=== PATIENT | male | born 1985 | race Caucasian/White ===

== ENCOUNTER 2020-07-03 15:45 | Emergency (ER) | payer OTHER, SELFPAY ==
--- NOTE | ~2020-07-03 | MR_ITS ---
EXAMINATION: MR ELBOW RIGHT WITHOUT CONTRAST CLINICAL INFORMATION: 34-year-old male with pain and bruising. Concern for biceps tendon tear. COMPARISON: None TECHNIQUE: Noncontrast multiplanar, multisequence MR imaging examination of the right elbow was performed on a high-field 1.5 Iza magnet. FINDINGS: BONES AND CARTILAGE: Bones of the elbow have normal shape, marrow signal and alignment. Articular cartilage is normal. No bone bruise or fracture. No synovial thickening, joint effusion or loose osteochondral body. LIGAMENTS: No evidence of ligament injury. At the lateral elbow, the radial collateral, annular and lateral ulnar collateral ligaments are intact. At the medial elbow, the anterior band of the medial collateral ligament is intact. MUSCLES AND TENDONS: The distal biceps tendon is ruptured and retracted by approximately 4 cm from its radial tuberosity insertion. Fluid and edema surround the torn tendon which, distally, is mildly thickened and mildly heterogeneous from tendinopathy. There is minimal intramuscular edema around the myotendinous junction of the distal biceps. The common flexor and extensor tendons are intact. The pronator teres and brachioradialis muscles are normal. The triceps tendon has a normal attachment to the olecranon. No olecranon bursitis. NEUROVASCULAR: The ulnar nerve has normal size and signal intensity as it courses through the cubital tunnel. No median or radial nerve abnormalities. No soft tissue mass. MR/MR elbow RT wo con IMPRESSION: The biceps tendon is ruptured and retracted from its tuberosity insertion.
[2020-07-03 17:03] VITALS: BP 146/98; PULSE 77; RESP 18; TEMP 37.1; O2SAT 99; BMI 28.3
[2020-07-03 19:31] VITALS: BP 127/79; PULSE 83; RESP 18; TEMP 36.8; O2SAT 96
--- NOTE | 2020-07-03 19:32 | ED.EXTPRO ---
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 He had immediate pain with tingling sensation on the flexor surface of his right arm. He had pain with full extension and rested his arm in a bent position that night. The next day he noticed bruising along the distal upper arm and proximal forearm with persistent pain. He is unable to do any lifting. His pain worsens most with internal rotation of his forearm. No hand weakness. He is able to fully extend and flex his elbow but with discomfort. MD Complaint: extremity pain Onset (ago): day(s) (2) Pain Consistency: constant Location: right and upper extremity Severity scale (1-10): 7 Quality: aching Radiation: none Relieving factors: immobilization and rest Exacerbating factors: range of motion and palpation Related Data Allergies Allergy/AdvReac Type Severity Reaction Status Date / Time No Known Allergies Allergy Verified 07/03/20 17:58 Review of Systems Review of Systems: Constitutional: No Fever, No Chills Cardiovascular: No Chest Pain, No SOB Gastrointestinal: No Nausea, No Vomiting Musculoskeletal: + joint pain, + Myalgias Skin: No Skin Lesions, No rash Neuro: + Weakness, No Numbness, Psych: No Anxiety/Panic, No Depression PMFSH Past Medical History Attestation statement: The following information was validated with the patient. Social History Social History Advance Directives: No Advance Directives Information Provided: No Physical Exam Vital Signs: Vital Signs: Last Vital Signs Temp 98.0 F 07/03/20 20:38 Pulse 79 07/03/20 20:38 Resp 18 07/03/20 20:38 BP 136/83 07/03/20 20:38 Pulse Ox 96 07/03/20 20:38 Body Mass Index 28.3 Appearance: Alert. Oriented X3. No acute distress. HEENT: normal inspection CVS: Normal heart rate and rhythm. Pulses normal. Respiratory: No respiratory distress. Skin: Skin warm and dry. Normal skin color. Normal skin turgor. No rashes. Extremities: right upper extremity with ecchymosis over flexor surface of his distal upper arm and proximal forearm and AC, tenderness along distal biceps tendon, NV intact distally. able to flex and extend elbow, pain on internal rotation of forearm Neuro: Oriented X 3. No motor deficit. No sensory deficit. Course Course Course Narrative: 34 y/o male presenting with clinical presentation concerning for bicep tendon rupture - case was d/w Ortho. Recommending MRI as this is preferably repaired within 3-5 days. Reevaluation(s) Reevaluation #1: MRI showing biceps tendon tear w/ 4cm retraction from tuberosity. Ortho made aware, placed in sling for comfort and instructed to f/u on Monday with Ortho. patient not in significant pain and agrees to take Tylenol ATC for pain. Stable for d/c. Consultations Consultation #1: Donna Perry PA-C Critical Care Time Critical Care Time Critical Care Time: No Discharge Plan Discharge Clinical Impression: Biceps tendon tear Patient Disposition: Home, Self-Care Instructions: Repairs of the Biceps and Triceps Tendons (DC), Tendon Rupture (ED) Additional Instructions: Your MRI showed a biceps tendon repair. This will need surgical repair. Follow up with Orthopedics Monday morning. Wear the sling provided and limit use of your left arm. Referrals: Duncan Fontanez MD [Physician] - 2 days (biceps tendon tear) Stand Alone Forms: Work/School Release
[2020-07-03 20:38] VITALS: BP 136/83; PULSE 79; RESP 18; TEMP 36.7; O2SAT 96
== END 2020-07-03 21:41 | disposition home or self-care (01) ==
PROVIDERS: Emergency Provider Internal Medicine
DX: S46.211A Strain of muscle, fascia and tendon of other parts of biceps, right arm, initial encounter (principal); M79.601 Pain in right arm; X50.0XXA Overexertion from strenuous movement or load, initial encounter; X50.9XXA Other and unspecified overexertion or strenuous movements or postures, initial encounter; Y93.9 Activity, unspecified; Y92.9 Unspecified place or not applicable; Y99.0 Civilian activity done for income or pay
CPT/HCPCS: 73221; 99284

== ENCOUNTER → 2020-07-06 08:48 | Outpatient (BNVA) | payer OTHER, SELFPAY | PROVIDERS: Visit Provider Physician Assistant ==

== ENCOUNTER 2020-07-08 08:25 | Day surgery (SDC) | payer OTHER, SELFPAY ==
[2020-07-08] VITALS (8 sets, daily range): BP systolic 114–143; BP diastolic 61–88; PULSE 63–92; RESP 16–18; TEMP 36.3–37.1; O2SAT 92–97; BMI 29.0
--- NOTE | ~2020-07-08 | FL_ITS ---
EXAMINATION: XR FLUOROSCOPY WITH IMAGES CLINICAL INFORMATION: Distal biceps repair. COMPARISON: Previous right elbow MRI 07/03/2020. TECHNIQUE: Fluoroscopy performed by Dr. Duncan Fontanez. Fluoroscopy time: 16.1 seconds DAP: 15 uGycm2 Images: 2 FINDINGS: Fluoroscopic images demonstrate surgical anchor projecting over the radial tuberosity for biceps tendon repair. FL/FL guidance in OR IMPRESSION: Fluoroscopic guidance for biceps tendon repair.
[2020-07-08] MEDS: Lactated Ringers 1,000 ML 50 ML IV (09:30)
--- NOTE | 2020-07-08 11:35 | MHC.SHP ---
Pre-Procedural Eval Section A The patient is an INPATIENT: No Changes since office visit: Yes Patient answered all questions; No Cold of Flu in the past 2 weeks, No New Medical Problems and No Changes in Medication The History & Physical has been completed within 30 days and I have reviewed it.: Yes Section B Chief Complaint: strain of muscle Allergies: Allergies Allergy/AdvReac Type Severity Reaction Status Date / Time No Known Allergies Allergy Verified 07/08/20 09:38 Plan I have reviewed the history and physical and performed a pertinent physical examination on my patient. No changes have occurred unless specified.
--- NOTE | 2020-07-08 12:16 | HO.ANESPROP2 ---
[facility] Active Problems Active Problems: All Active Problems (Updated 07/08/20 @ 09:37 by Allison Lopez RN) Traumatic rupture of right distal biceps tendon (Acute) Past Medical History Medical History No significant medical problems Surgical History Surgical History No history of previous surgery Social History Social History Smoking Status: Never smoker Second Hand Smoke Exposure: No Use of substances other than those prescribed or required for medical reasons: No Advance Directives: No Advance Directives Information Provided: Yes Advance Directives on File: No Current occupational status: employed Current occupation: Self Employed - Construction Meds Allergies Allergy/AdvReac Type Severity Reaction Status Date / Time No Known Allergies Allergy Verified 07/08/20 09:38 Home Medications Medication Instructions Recorded Confirmed Last Taken Type No Known Home Meds 07/06/20 07/06/20 Unknown History Exam Exam Date and Time: July 08, 2020 1216 Height,Weight and Vital Signs: Height 6 ft 1 in Weight 99.79 kg Last Vital Signs Temp 98.8 F 07/08/20 09:04 Pulse 74 07/08/20 09:04 Resp 16 07/08/20 09:04 BP 143/88 H 07/08/20 09:04 Pulse Ox 96 07/08/20 09:04 Airway Mallampati Class: I TM Dist: >3cm Neck ROM: Full Loose/Missing/Broken Teeth: No Heart: RRR Lungs: NL Assessment and Plan Assessment Anesthesia Assessment: Anesthesia Plan Discussed and Chart Reviewed Final Anesthetic Review NPO: Yes ASA Class: I Final Preanesthetic Review: No Changes in Pt Med Stat, Meds/Allgs Chart Reviewed, Consent Obtained/Reviewed and Anes Risks/Benef Reviewed Patient Risk: Low Procedure Risk: Low Anesthetic Plan Anesthetic Plan: GA Disposition: Standard PACU
--- NOTE | 2020-07-08 13:22 | PM.OP ---
Brief Operative Note Date of Service: 07/08/20 Pre-op diagnosis: right distal biceps rupture Post-op diagnosis: same Procedure: right distal biceps repair Implants: arthrex suture button with interference screw Surgeon: Duncan Fontanez MD Anesthesia: GETA and local Board Saw Runner: Vicky Sebastian Estimated blood loss (mL): 5 Tourniquet time (min): 62 IV fluids (mL): 900 Pathology: none sent Condition: stable Disposition: PACU
[2020-07-08] MEDS: ondansetron HCL 4 MG/2 ML VIAL IVPUSH (14:21)
[2020-07-08] MEDS: Acetaminophen 325 MG TABLET 975 MG PO (15:08)
[2020-07-08] MEDS: oxyCODONE HCl Immed Release 5 MG TABLET PO (15:11)
--- NOTE | 2020-07-08 16:43 | PC.NURSE ---
patient able stand and ambulate to wheelchair no complaints of dizziness, dressing right arm c/d/i. +cms. pain tolerable iv removed and dc to home.
--- NOTE | 2020-07-15 12:48 | W.PM.OPN ---
Operative Note Operative Note Date of Service: 07/08/20 Narrative: Date of Service: 07/08/20 Pre-op diagnosis: right distal biceps rupture Post-op diagnosis: same Procedure: right distal biceps repair Implants: arthrex suture button with interference screw Surgeon: Duncan Fontanez MD Anesthesia: GETA and local Pattern Clerk: Vicky Sebastian Estimated blood loss (mL): 5 Tourniquet time (min): 62 IV fluids (mL): 900 Pathology: none sent Condition: stable Disposition: PACU Procedure in dtail: Patient was brought to the operating room and placed supine on the surgical table. He was prepped and draped in standard sterile fashion and a time out was called to identify proper site, proper procedure and IV antibiotics per weight were administered. I began by making a transverse incision over the level of the biceps insertion. Longitudinal dissection was taken down and I was quickly able to find the torn biceps tendon just p[roxoimal to the incision.. I took care to avoid the antecubital fossa veins and bluntly dissected down to the insertion site. This was identified maually and then confirmed with fluoroscopy. I trimmed the biceps tendon and whip stitched it and then drilled a bicortical beef pin at the insertion site and a unicortical 8.5 Reamer was then utilized. I then passed my suture button through both cortices and tightened the biceps tendon until it was intraosseous. I then placed a 8 0 interference screw unicortically reapproximating both the insertion site and that tension. He had full range of motion and I was satiosfied with the repair. The FiberWire was tied over the button and the elbow was taken through range of motion. Again he had full pronation supination and flexion and extension. Fluoroscopic images were used to confirm the button was in the appropriate position. Once I was satisfied with this the tourniquet was let down. There was no brisk bleeding. Layered closure with Prolene on the skin was done and patient was placed in a sterile dressing and a sling extubated brought recovery room stable condition there were no known complications.
== END 2020-07-08 16:44 | disposition home or self-care (01) ==
PROVIDERS: Visit Provider Orthopaedic Surgery
PROC: (CPT 24341; principal; 2020-07-08 10:20)
DX: S46.211A Strain of muscle, fascia and tendon of other parts of biceps, right arm, initial encounter (principal); X50.0XXA Overexertion from strenuous movement or load, initial encounter; Y93.89 Activity, other specified; Y92.9 Unspecified place or not applicable; Y99.9 Unspecified external cause status
CPT/HCPCS: 24342; C1713; J0690; J1170; J2250; J2405; J2550

== ENCOUNTER → 2020-07-17 11:07 | Outpatient (BNVA) | payer OTHER, SELFPAY | PROVIDERS: Visit Provider Physician Assistant ==

== ENCOUNTER → 2020-08-14 10:28 | Outpatient (BNVA) | payer OTHER, SELFPAY | PROVIDERS: Visit Provider Physician Assistant ==

== ENCOUNTER 2020-09-04 09:40 | Outpatient (REF) | payer OTHER, SELFPAY ==
[2020-09-04 10:39] LABS: Hematocrit 47.6 % (42-52); Hemoglobin 15.7 g/dl (14.0-18.0); Mean Corpuscular Volume 81.9 fL (80-98); Mean Platelet Volume 9.8 fL (9.4-12.4); Platelet Count 284 X10*3/uL (160-400); Red Blood Count 5.81 X10*6/uL (4.60-5.80); Red Cell Distribution Width 12.7 % (11.0-16.0); White Blood Count 6.4 X10*3/uL (4.8-10.8)
[2020-09-04 10:45] LABS: Glucose Urine UA NEG (NEG); Leukocyte Esterase Urine NEG (NEG); Nitrite Urine NEG (NEG); Specific Gravity - Urine >= 1.030 (1.005-1.025); Urine Blood TRACE (NEG); Urine Ketones NEG (NEG); Urine Protein NEG (NEG-TRACE)
[2020-09-04 10:49] LABS: Appearance Urine CLEAR; Color Urine YELLOW
[2020-09-04 11:27] LABS: Alkaline Phosphatase 84 U/L (39-117)
[2020-09-04 11:30] LABS: Alanine Aminotransferase 56 U/L (0-40); Albumin Level 4.6 g/dL (3.5-5.0); Anion Gap 11 (12-20); Aspartate Amino Transferase 29 U/L (5-37); Bilirubin Direct 0.2 mg/dL (0.0-0.5); Bilirubin Total 0.6 mg/dL (0.0-1.0); Blood Urea Nitrogen 15 mg/dL (9-16); Calcium 9.8 mg/dL (8.4-10.2); Carbon Dioxide 28 mmol/L (22-29); Chloride 106 mmol/L (96-108); Cholesterol 221 mg/dL; Estimated Glomerular Filt Rate > 60; Glucose Random 103 mg/dL (60-115); HDL Cholesterol 39 mg/dL; LDL Cholesterol Calculated 152 mg/dl; Potassium 4.7 mmol/L (3.3-5.1); Sodium 140 mmol/L (135-145); Total Protein 7.5 g/dL (6.5-8.0); Triglycerides 152 mg/dL
[2020-09-04 11:49] LABS: Mucus Urine 1+ /LPF; RBC Urine 0-2 /HPF (0); Squamous Epithelial Cell Urine TRACE /LPF; WBC Urine 0-2 /HPF (0-4)
== END 2020-09-04 09:41 | disposition home or self-care (01) ==
LOC: HO.WFDLDS 09:40
PROVIDERS: Visit Provider Internal Medicine
DX: E78.01 Familial hypercholesterolemia (principal)
CPT/HCPCS: 36415; 80048; 80061; 80076; 81001; 85027

== ENCOUNTER 2020-11-07 12:26 | Emergency (ER) | payer OTHER, SELFPAY ==
[2020-11-07 12:43] VITALS: BP 140/91; PULSE 74; TEMP 36.7; O2SAT 98
[2020-11-07 12:49] VITALS: BP 140/91; PULSE 74; RESP 18; TEMP 36.7; O2SAT 96; BMI 28.3
--- NOTE | 2020-11-07 13:15 | ED.ALLEREA ---
HPI - Allergic Reaction General Chief complaint: Allergic Reaction Stated complaint: stung by wasp, facial swelling Time Seen by Provider: 11/07/20 13:00 Source: patient Mode of arrival: ambulatory Limitations: no limitations History of Present Illness HPI narrative: 35-year-old male presents for left facial swelling after being stung by a wasp yesterday t 2 pm. Patient's facial swelling started at 8:00 p.m. last night, he used ice and antihistamine, and it felt better. He went to sleep and this morning when he woke up the swelling was much worse. It was mildly painful yesterd\ay, no pain now, no itching. Patient does not feel short of breath, no fevers, no throat swelling, no lip swelling, no tongue swelling. He can swallow fine. His voice is normal, no hoarseness. No abdominal pain, no nausea or vomiting. Patient is often stung by bees because he does bee keeping for hobby. This time there was a wasps Nest underground that he disturbed and a wasp stung him. MD complaint: allergic reaction Onset (ago): day(s) (1) Exposure: insect bite Symptoms: facial swelling Severity: moderate Treatment prior to arrival: benadryl Previous Allergic Reaction History: other (local rections) Related Data Previous Rx's Medication Instructions Recorded diphenhydramine HCl 25 mg capsule 25 mg PO TID PRN 5 Days #15 cap 11/07/20 (Benadryl) famotidine 20 mg tablet (Acid 20 mg PO DAILY 14 Days #14 tab 11/07/20 [employer] Hand (famotidine)) prednisone 20 mg tablet 60 mg PO DAILY 5 Days #15 tab 11/07/20 Allergies Allergy/AdvReac Type Severity Reaction Status Date / Time No Known Allergies Allergy Verified 11/07/20 12:49 Review of Systems Constitutional: Constitutional: Denies fever(s) and Denies headache(s) Eyes: Eyes: Denies blurry vision, Denies change in vision and Denies loss of vision ENT: Denies dizziness, Denies facial pain, Denies headache(s), Denies hoarseness, Denies lip swelling, Denies throat swelling and Denies tongue swelling Cardiovascular: Cardiovascular: Denies chest pain, Denies syncope, Denies dyspnea and Denies dyspnea on exertion Respiratory: Respiratory: Denies cough, Denies dyspnea, Denies dyspnea on exertion, Denies stridor and Denies wheezing Gastrointestinal: Gastrointestinal: Denies abdominal pain, Denies nausea and Denies vomiting Musculoskeletal: Musculoskeletal: Denies numbness and Denies tingling Integumentary/Breasts: Skin/Breast: Reports skin swelling Comments: Facial swelling around left eye and left cheek Neurologic: Denies burning sensations, Denies dizziness, Denies syncope, Denies headache(s), Denies loss of vision, Denies numbness and Denies tingling Psychiatric: Psychiatric: Denies anxiety Allergic/Immunologic: Allergic/Immunologic: Denies lip swelling, Denies throat swelling, Denies tongue swelling and Denies wheezing PMFSH Past Medical History Medical History Encounter for general adult medical examination with abnormal findings Familial hypercholesterolemia No significant medical problems Surgical History No history of previous surgery Social History Social History Housing: House Patient Tobacco Use Status: Never used Tobacco Second Hand Smoke Exposure: No Advance Directives: Yes Advance Directives Information Provided: Yes Advance Directives on File: No Current occupational status: employed Current occupation: Self Employed - Construction Physical Exam Vital Signs: Vital Signs: Last Vital Signs Temp 98.1 F 11/07/20 12:49 Pulse 74 11/07/20 12:49 Resp 18 11/07/20 12:49 BP 140/91 H 11/07/20 12:49 Pulse Ox 96 11/07/20 12:49 Body Mass Index 28.3 Const: General: healthy appearing, no acute distress, alert and awake Nutritional Appearance: well nourished Orientation/consciousness: patient oriented x3 Limitations: no limitations HENMT: Other: Left facial swelling around left eye and left cheek Patent airway, no throat swelling, no lip swelling, no tongue swelling Ears: hearing grossly normal bilaterally General nose exam: Normal external nose present Face and sinus: No erythema, Yes edema and No Facial tenderness on exam of face and sinuses Mouth: Normal oral and palatal mucosa present, tongue normal, oropharynx normal and no muffled voice Throat: Yes posterior oropharynx normal Eyes: Other: Left eye swollen shut from facial swelling. Able to open left eye, eye is PERRLA, patient has no visual changes Pupils: Equal, round and reactive pupils present Direct Ophthalmoscopy: normal light reflex Resp: Effort & Inspection: normal respiratory effort and able to speak in complete sentences Auscultation: clear to auscultation bilaterally, no crackles, no rales, no rhonchi, no wheezes and lung sounds not diminished Cardio: Rate: regular rate Rhythm: regular rhythm Heart sounds: S1 normal heart sound present and S2 normal heart sound present GI: Inspection: Yes normal to inspection Palpation (GI): Soft to palpation, nontender, no guarding and not rigid Skin: Other: With swollen skin around left eye and left face, mildly edematous and erythematous Neuro: General: patient oriented x3, gait normal, tone normal, moves all extremities and no focal motor deficits Cranial nerves: Yes Equal, round and reactive pupils present Extrem: General: Yes normal to inspection and Yes full ROM Course Course Course Narrative: 35-year-old male with a local reaction to wasp sting under his left eye. Patient has a swollen left face, edematous around eye and left cheek. Patient has a patent airway, no tongue, no throat, no lip swelling. He can swallow, his lungs are clear to auscultation bilaterally. Dr Vazquez did see this patient, and agreed patient can be treated with prednisone, Pepcid, and Benadryl. Gave 60 mg prednisone and 20 mg Pepcid here today. Patient is driving home, so I advised patient to take Benadryl once he arrives home. Patient counseled to return if worsening symptoms, if any shortness of breath, wheezing, throat swelling, tongue swelling, lip swelling. Prescribed prednisone, Pepcid, advised ice to face, and Benadryl OTC. Discharge Plan Discharge Clinical Impression: Allergic reaction Qualifiers: Encounter type: initial encounter Qualified Code(s): T78.40XA - Allergy, unspecified, initial encounter Patient Disposition: Home, Self-Care Instructions: General Allergic Reaction (ED) Additional Instructions: Could please fill your prescription for prednisone and Pepcid. We have had these doses of these today, please fill your prescriptions he can take them both tomorrow. As we discussed. Please take your prednisone in the morning. If your insurance will not pay for the Benadryl I prescribed, Please buy [id number] Benadryl, you can take 25 mg three times a day. I would like you to do this for the next 5 days. Please return to emergency room if you have any lip swelling, throat swelling, trouble breathing, tongue swelling, or any other new or concerning symptoms. Prescriptions: New prednisone 20 mg tablet 60 mg PO DAILY 5 Days Qty: 15 RF: 0 famotidine [Acid [employer] Hand (famotidine)] 20 mg tablet 20 mg PO DAILY 14 Days Qty: 14 RF: 0 diphenhydramine HCl [Benadryl] 25 mg capsule 25 mg PO TID PRN (Reason: allergic reaction) 5 Days Qty: 15 RF: 0
[2020-11-07] MEDS: Famotidine 20 MG TABLET PO (13:34)
[2020-11-07] MEDS: predniSONE 20 MG TABLET 60 MG PO (13:34)
== END 2020-11-07 13:41 | disposition home or self-care (01) ==
PROVIDERS: Emergency Provider Emergency Medicine; PCP Family Medicine
DX: T63.441A Toxic effect of venom of bees, accidental (unintentional), initial encounter (principal); R22.0 Localized swelling, mass and lump, head; Y92.017 Garden or yard in single-family (private) house as the place of occurrence of the external cause
CPT/HCPCS: 99283

== ENCOUNTER 2021-01-22 15:42 | Outpatient (REF) | payer OTHER, SELFPAY ==
[2021-01-22 17:33] LABS: Syphilis Screen Nonreactive (Nonreactive)
[2021-01-25 08:22] LABS: HBsAGNum1 0.18 S/CO (0.00-0.99); HIV AB/AG Nonreactive (Nonreactive); HIV Num 1 0.06 S/CO (0.00-0.99); Hepatitis B Surface Antigen Negative (Negative); ~HepC Num1 0.05 S/CO (0.00-0.79); ~Hepatitis C Antibody Nonreactive (Nonreactive)
== END 2021-01-22 15:43 | disposition home or self-care (01) ==
LOC: HO.LAB 15:42
PROVIDERS: Visit Provider Obstetrics & Gynecology Reproductive Endocrinology
DX: Z31.49 Encounter for other procreative investigation and testing (principal); Z11.9 Encounter for screening for infectious and parasitic diseases, unspecified
CPT/HCPCS: 36415; 86780; 86803; 87340; 87389

== ENCOUNTER 2021-09-09 14:13 | Outpatient (REF) | payer OTHER, SELFPAY ==
[2021-09-09 14:58] LABS: MANUAL DIFF FLAG NO
[2021-09-09 15:13] LABS: Basophils Absolute Auto 0.1 X10*3/uL (0.0-0.2); Basophils Percent Auto 0.8 % (0-2); Eosinophils Absolute Auto 0.2 X10*3/uL (0.0-0.4); Eosinophils Percent Auto 3.2 % (0-4); Hematocrit 45.7 % (42.0-52.0); Hemoglobin 15.3 g/dl (14.0-18.0); Imm Gran Abs Auto 0.02 X10*3/uL (0.00-0.03); Imm Gran Pct Auto 0.3 % (0.0-0.4); Lymphocytes Absolute Auto 2.4 X10*3/uL (1.2-4.9); Mean Corpuscular HGB Conc 33.5 g/dl (31.0-36.0); Mean Corpuscular Hemoglobin 26.8 pg (27.0-33.0); Mean Platelet Volume 9.6 fL (9.4-12.4); Monocytes Absolute Auto 0.7 X10*3/uL (0.1-1.2); Monocytes Percent Auto 10.8 % (2-11); Neutrophils Absolute Auto 2.9 x10*3/uL (2.0-8.3); Neutrophils Percent Auto 46.9 % (45-73); Platelet Count 249 X10*3/uL (160-400); Red Blood Count 5.71 X10*6/uL (4.60-5.80); White Blood Count 6.3 X10*3/uL (4.8-10.8)
[2021-09-09 15:38] LABS: Iron 57 mcg/dL (45-160); Percent Iron Saturation 15 % (15-50); Total Iron Binding Capacity 383 mcg/dL (228-428); Unsaturated Iron Binding 326 ug/dL
[2021-09-09 15:58] LABS: Free T4 (Free Thyroxine) 1.26 ng/dL (0.71-1.85); Thyroid Stimulating Hormone 1.07 uIU/mL (0.32-4.0)
[2021-09-10 17:32] LABS: Triiodothyronine T3 Free 4.1 pg/mL (2.3-4.2)
[2021-09-10 17:46] LABS: DHEA Sulfate 268 mcg/dL (93-415)
[2021-09-14 10:22] LABS: Anti Nuclear Antibody Screen NEGATIVE (NEGATIVE)
[2021-09-15 18:17] LABS: Methylmalonic Acid 188 nmol/L (87-318)
[2021-09-16 00:07] LABS: MTHFR Mutation Detection POSITIVE; Pregnenolone, LC/MS 88 ng/dL (22-237)
[2021-09-22 09:51] LABS: Homocysteine 13.4
== END 2021-09-09 14:14 | disposition home or self-care (01) ==
LOC: HO.LAB 14:13
PROVIDERS: PCP Family Medicine; Visit Provider Naturopath
DX: Z00.00 Encounter for general adult medical examination without abnormal findings (principal); B37.9 Candidiasis, unspecified; E53.9 Vitamin B deficiency, unspecified; K59.00 Constipation, unspecified; R03.0 Elevated blood-pressure reading, without diagnosis of hypertension; R06.83 Snoring; R19.7 Diarrhea, unspecified; R41.9 Unspecified symptoms and signs involving cognitive functions and awareness; R53.83 Other fatigue; R89.9 Unspecified abnormal finding in specimens from other organs, systems and tissues
CPT/HCPCS: 82627; 83090; 83540; 83735; 83921; 84143; 84439; 84443; 84481; 84630; 85025; 86038; 86039; 86141; 86332; 86628

== ENCOUNTER 2021-09-10 06:42 | Outpatient (REF) | payer OTHER, SELFPAY ==
[2021-09-10 08:14] LABS: Alanine Aminotransferase 35 U/L (0-40); Albumin Level 4.8 g/dL (3.5-5.0); Alkaline Phosphatase 75 U/L (39-117); Anion Gap 11 (12-20); Aspartate Amino Transferase 30 U/L (5-37); Bilirubin Total 0.9 mg/dL (0.0-1.0); Blood Urea Nitrogen 18 mg/dL (9-16); Calcium 9.7 mg/dL (8.4-10.2); Carbon Dioxide 26 mmol/L (22-29); Chloride 104 mmol/L (96-108); Cholesterol 229 mg/dL; Estimated Glomerular Filt Rate > 60; Gamma Glutamyl Transpeptidase 34 U/L (11-51); Glucose Random 107 mg/dL (60-115); HDL Cholesterol 40 mg/dL; LDL Cholesterol Calculated 177 mg/dl; Lactate Dehydrogenase 164 U/L (118-273); Potassium 4.3 mmol/L (3.3-5.1); Sodium 137 mmol/L (135-145); Total Protein 7.9 g/dL (6.5-8.0); Triglycerides 60 mg/dL; Uric Acid 7.2 mg/dL (3.4-7.0)
[2021-09-10 08:34] LABS: Insulin 7 uU/mL (2-29); Vitamin D 25-OH Total 34.2 ng/mL (>30)
[2021-09-10 08:54] LABS: Folate 19.6 ng/mL (> or = 4.0); Vitamin B12 255 pg/mL (200-900)
[2021-09-10 10:02] LABS: Cortisol Random 12.9 ug/dL
[2021-09-11 21:22] LABS: Sex Hormone Binding Globulin 28 nmol/L (10-50)
[2021-09-16 13:06] LABS: Testosterone, Total 255 ng/dL (250-1100)
[2021-09-16 19:42] LABS: Vitamin A 45 mcg/dL (38-98)
[2021-09-16 21:36] LABS: Dihydrotestosterone 20 ng/dL (12-65)
== END 2021-09-10 06:43 | disposition home or self-care (01) ==
LOC: HO.LAB 06:42
PROVIDERS: PCP Family Medicine; Visit Provider Naturopath
DX: B37.9 Candidiasis, unspecified (principal); E50.9 Vitamin A deficiency, unspecified; E53.9 Vitamin B deficiency, unspecified; E63.9 Nutritional deficiency, unspecified; E72.11 Homocystinuria; E78.5 Hyperlipidemia, unspecified; E72.12 Methylenetetrahydrofolate reductase deficiency; K59.00 Constipation, unspecified; R03.0 Elevated blood-pressure reading, without diagnosis of hypertension; R06.83 Snoring; R19.7 Diarrhea, unspecified; R41.9 Unspecified symptoms and signs involving cognitive functions and awareness
CPT/HCPCS: 80053; 80061; 82306; 82533; 82542; 82607; 82642; 82671; 82746; 82977; 83525; 83615; 84144; 84207; 84252; 84270; 84402; 84403; 84550; 84590

== ENCOUNTER 2021-10-08 15:56 | Outpatient (REF) | payer OTHER, SELFPAY ==
[2021-10-08 17:56] LABS: Ferritin 78 ng/mL (20-250)
[2021-10-10 05:16] LABS: Follicle Stimulating Hormone 3.8 mIU/mL (1.6-8.0); Lutenizing Hormone 3.4 mIU/mL (1.5-9.3)
[2021-10-11 21:45] LABS: Thyroglobulin Antibodies <1 IU/mL (< or = 1); Thyroid Peroxidase Antibodies 2 IU/mL (<9)
[2021-10-13 16:27] LABS: Thyroid Stimulating Immunoglob <89 % baseline (<140)
[2021-10-15 23:26] LABS: Saliva Cortisol 0.18 mcg/dL
[2021-10-15 23:26] LABS: Saliva Cortisol 0.25 mcg/dL
[2021-10-15 23:26] LABS: Saliva Cortisol <0.03 mcg/dL
== END 2021-10-08 15:57 | disposition home or self-care (01) ==
LOC: HO.LAB 15:56
PROVIDERS: PCP Family Medicine; Visit Provider Naturopath
DX: E72.11 Homocystinuria (principal); E78.2 Mixed hyperlipidemia; R53.83 Other fatigue; R89.9 Unspecified abnormal finding in specimens from other organs, systems and tissues; R94.6 Abnormal results of thyroid function studies
CPT/HCPCS: 82530; 82728; 83001; 83002; 84445; 86376; 86618; 86666; 86753; 86800

== ENCOUNTER 2022-03-31 11:37 | Outpatient (REF) | payer OTHER, SELFPAY ==
[2022-03-31 13:35] LABS: Cholesterol 241 mg/dL; HDL Cholesterol 40 mg/dL; LDL Cholesterol Calculated 186 mg/dl; Triglycerides 75 mg/dL
[2022-03-31 14:59] LABS: Reflex LDLD? No
[2022-04-01 07:49] LABS: Sex Hormone Binding Globulin 27 nmol/L (10-50)
[2022-04-01 14:29] LABS: CRP High Sensitivity 1.7 mg/L
[2022-04-04 15:19] LABS: Vitamin D 25-OH, D2 <4 ng/mL; Vitamin D 25-OH, D3 57 ng/mL; Vitamin D 25-OH, Total 57 ng/mL (30-100)
[2022-04-04 17:53] LABS: Homocysteine 7.7 umol/L (<11.4)
[2022-04-06 13:14] LABS: Testosterone, Free 67.1 pg/mL (35.0-155.0); Testosterone, Total 430 ng/dL (250-1100)
[2022-04-11 08:09] LABS: Other Ref Test - Misc SEE COMMENTS
== END 2022-03-31 11:38 | disposition home or self-care (01) ==
LOC: HO.LAB 11:37
PROVIDERS: PCP Family Medicine; Visit Provider Naturopath
DX: B37.82 Candidal enteritis (principal); R89.9 Unspecified abnormal finding in specimens from other organs, systems and tissues; R86.1 Abnormal level of hormones in specimens from male genital organs; E55.9 Vitamin D deficiency, unspecified; R79.82 Elevated C-reactive protein (CRP)
CPT/HCPCS: 36415; 80061; 82306; 83090; 84270; 84402; 84403; 86141

== ENCOUNTER 2023-06-22 13:56 | Outpatient (REF) | payer OTHER, SELFPAY ==
[2023-06-23 21:05] LABS: Immunoglobulin A 389 mg/dL (47-310); Transglutaminase IgA <1.0 U/mL
== END 2023-06-22 13:57 | disposition home or self-care (01) ==
LOC: HO.LAB 13:56
PROVIDERS: PCP Family Medicine; Visit Provider Naturopath
DX: R53.83 Other fatigue (principal); K21.9 Gastro-esophageal reflux disease without esophagitis; R14.0 Abdominal distension (gaseous); R19.7 Diarrhea, unspecified; T78.1XXS Other adverse food reactions, not elsewhere classified, sequela; K90.89 Other intestinal malabsorption; B37.82 Candidal enteritis
CPT/HCPCS: 36415; 82784; 86003; 86332; 86364; 86628

== ENCOUNTER 2023-11-01 07:52 | Outpatient (AMB) | payer OTHER, SELFPAY ==
[2023-11-01 08:01] VITALS: BP 148/80; PULSE 81; O2SAT 98
--- NOTE | 2023-11-01 08:01 | A.OFFPC_ITS ---
Vital Signs 11/01/23 08:01 Height 5 ft 11 in Weight 215 lb BMI 30.0 BP 148/80 H Blood Pressure Location Lt brachial Position Sitting Pulse 81 Pulse Source Pulse Oximeter Pulse Oximetry (%) 98 Oxygen Delivery Method Room Air Intake Visit Reasons: PE Allergies No Known Allergies Allergy (Verified 11/01/23 08:01) Tobacco use date assessed: 11/01/23 Dental Screening Dental Screen Date: 11/01/23 Did you have a dental visit in the last 12 months?: Yes Did you have a dental problem in the last 6 months where you did not have access to dental care?: No Was dental information given to patient?: Patient has dentist HPI PE HPI Details 38-year-old male presents to the office requesting an annual physical. In addition, patient is complaining of getting frequently sick. He has recently moved to a new house and symptoms seems to have been worse after. Complains of headaches, frequent respiratory illness and feeling lightheaded. His nose is blocked every night and has history of snoring. He believes he may have a deviated nasal septum. Patient is also reporting that on occasions he gets sharp pain in his right leg, once in 6 months. Patient works as a construction consultant. Denies history of smoking. Lives with his and kids. [facility] Medical History (Updated 11/01/23 @ 08:58 by Juan Longo MD) Allergic rhinitis Familial hypercholesterolemia Encounter for general adult medical examination with abnormal findings No significant medical problems Surgical History No history of previous surgery Family History Mother POTS (postural orthostatic tachycardia syndrome) Father No problems noted. Brother No problems noted. Brother No problems noted. Brother No problems noted. Daughter No problems noted. Social History Housing: House Patient Tobacco Use Status: Never used Tobacco Tobacco use type: Cigarette e-Cigarette/Vaping Use: Never Used Second Hand Smoke Exposure: No service: No Current occupational status: employed Current occupation: Self Employed - Construction Current occupational exposures/hazards: No Cognitive needs: No Hearing needs: No Vision needs: No Questionnaire PHQ-9 Over the last 2 weeks, how often have you been bothered by any of the following problems? 1. Little interest or pleasure in doing things: not at all 2. Feeling down, depressed, or hopeless: not at all 3. Trouble falling or staying asleep, or sleeping too much: not at all 4. Feeling tired or having little energy: not at all 5. Poor appetite or overeating: not at all 6. Feeling bad about yourself - or that you are a failure or have let yourself or your family down: not at all 7. Trouble concentrating on things, such as reading the newspaper or watching television: not at all 8. Moving or speaking so slowly that other people could have noticed. Or the opposite - being so fidgety or restless that you have been moving around a lot more than usual: not at all 9. Thoughts that you would be better off or of hurting yourself in some way: not at all Total score: 0 Depression Screening Interpretation: Negative Depression Screening Done: Yes Source: Developed by Drs. Tevin Ramirez, Katlyn Tucker, Moises Martin and colleagues, with an educational venice from [employer]. Thrive Questionnaire Date Thrive assessed: 11/01/23 I am a: Patient What is your living situation today?: I have a steady place to live Within the past 12 months, did the food you bought not last and you didn't have the money to get more?: Never true Within the past 12 months, did you worry whether your food would run out before you got money to buy more?: Never true Do you have trouble paying for medicines?: No Do you have trouble getting transportation to medical appointments?: No Do you have trouble paying your heating and electricity bill?: No Do you have trouble taking care of your child, family member or friend?: No Do you have trouble with day-to-day activities such as bathing, preparing meals, shopping, managing finances, etc.?: No Are you currently unemployed and looking for a job?: No Are you interested in more education?: No Currently or been in a relationship where the following occur: No concerns reported THRIVE Score: 0 AUDIT C Alcohol Use Questionnaire (AUDIT-C) 1. How often do you have a drink containing alcohol?: Monthly or less 2. How many drinks containing alcohol do you have on a typical day when you are drinking?: 1 or 2 3. How often do you have six or more drinks on one occasion?: Never Total Score: 1 Score Reviewed/Action Taken: Yes MARGY-7 AMB Questionnaire MARGY-7 Date MARGY - 7 assessed: 11/01/23 Feeling nervous, anxious, or on edge: 0 = Not at all Not being able to stop or control worryin = Not at all Worrying too much about different things: 0 = Not at all Trouble relaxin = Not at all Being so restless that it is hard to sit still: 0 = Not at all Becoming easily annoyed or irritable: 0 = Not at all Feeling afraid as if something awful might happen: 0 = Not at all Total MARGY-7 score (0-4 normal; 5-9 mild; 10-14 moderate; 15-21 severe): 0 Source: Developed by Drs. Tevin Ramirez, Katlyn Tucker, Moises Martin and colleagues, with an educational venice from [employer]. Physical exam (Primary Care) Vital Signs: Last Vital Signs Pulse 81 11/01/23 08:01 BP 148/80 H 11/01/23 08:01 Pulse Ox 98 11/01/23 08:01 Oxygen Delivery Method Room Air 11/01/23 08:01 Care Plan Goal for BP management: Blood pressure to be monitored. BMI result Body Mass Index 30.0 Tobacco/Smoking Status: Tobacco use Status Tobacco use date assessed 11/01/23 11/01/23 08:08 Patient Tobacco Use Status Never used Tobacco 11/01/23 08:08 Tobacco use type Cigarette 11/01/23 08:08 e-Cigarette/Vaping Use Never Used 11/01/23 08:08 PHQ-9: PHQ-9 Score PHQ-9: Total score 0 11/01/23 08:08 Depression Screening Interpretation: Negative Thrive Assessment: Date of Thrive Assessment Date Thrive assessed 11/01/23 11/01/23 08:08 Currently or been in a relationship where the following occur: No concerns reported Const General: cooperative and healthy appearing Nutritional Appearance: well nourished Orientation/consciousness: patient oriented x3 Limitations: no limitations HENMT Other: Nose: Nasal septum is deviated. Head: Yes normal to inspection Eyes General: appearance normal, both eyes and all related structures Neck Neck: Yes normal visual inspection Chest Chest palpation & inspection: normal palpation of entire chest wall Resp Effort & Inspection: normal respiratory effort Neuro General: patient oriented x3 Assessment and Plan Assessment & Plan (1) Encounter for general adult medical examination with abnormal findings: Code(s): Z00.01 - Encounter for general adult medical examination with abnormal findings Plan: Blood work has been ordered. Will call with the results. (2) Allergic rhinitis: Code(s): J30.9 - Allergic rhinitis, unspecified Plan: His symptoms are arising from a combination of deviated septum and exacerbation of allergies. Singulair, Flonase, cetirizine, albuterol has been prescribed. In ENT appointment has been requested. Patient has a follow-up appointment in 4 weeks. Coding Level of Care Code Est Pt Level 3 (34439) Est Pt Prev Care 18-39y(88211) Diagnoses Encounter for general adult medical examination with abnormal findings Z00.01 Allergic rhinitis J30.9
== END 2023-11-01 08:39 | disposition home or self-care (01) ==
PROVIDERS: PCP Internal Medicine; Visit Provider Internal Medicine
DX: Z00.01 Encounter for general adult medical examination with abnormal findings (principal); J30.9 Allergic rhinitis, unspecified
CPT/HCPCS: 99213; 99395

== ENCOUNTER 2023-11-01 08:55 | Outpatient (REF) | payer OTHER, SELFPAY ==
[2023-11-01 10:17] LABS: Appearance Urine Clear; Color Urine Yellow; Glucose Urine UA Negative (Negative); Leukocyte Esterase Urine Negative (Negative); Nitrite Urine Negative (Negative); PH 5.5 (5.0-9.0); Urine Blood Negative (Negative); Urine Ketones Negative (Negative); Urine Protein Negative (Neg-Trace)
[2023-11-01 11:19] LABS: Hematocrit 45.7 % (42.0-52.0); Hemoglobin 15.3 g/dl (14.0-18.0); Mean Corpuscular HGB Conc 33.5 g/dl (31.0-36.0); Mean Corpuscular Hemoglobin 27.1 pg (27.0-33.0); Mean Corpuscular Volume 80.9 fL (80.0-98.0); Platelet Count 279 X10*3/uL (160-400); Red Blood Count 5.65 X10*6/uL (4.60-5.80); Red Cell Distribution Width 12.5 % (11.0-16.0); White Blood Count 4.4 X10*3/uL (4.8-10.8)
[2023-11-01 12:37] LABS: Alanine Aminotransferase 51 U/L (0-40); Albumin Level 4.6 g/dL (3.5-5.0); Alkaline Phosphatase 73 U/L (39-117); Anion Gap 12 (12-20); Aspartate Amino Transferase 32 U/L (5-37); Bilirubin Direct 0.2 mg/dL (0.0-0.5); Bilirubin Total 0.6 mg/dL (0.0-1.0); Blood Urea Nitrogen 14 mg/dL (9-16); Carbon Dioxide 28 mmol/L (22-29); Chloride 105 mmol/L (96-108); Cholesterol 193 mg/dL (<200); Estimated Glomerular Filt Rate > 60; Glucose Random 99 mg/dL (60-115); HDL Cholesterol 35 mg/dL (>40); LDL Cholesterol Calculated 142 mg/dL (<100); Potassium 4.5 mmol/L (3.3-5.1); Sodium 140 mmol/L (135-145); Total Protein 7.8 g/dL (6.5-8.0); Triglycerides 84 mg/dL (<150)
[2023-11-01 12:53] LABS: Thyroid Stimulating Hormone 1.44 uIU/mL (0.32-4.0)
== END 2023-11-01 08:56 | disposition home or self-care (01) ==
LOC: HO.LAB 08:55
PROVIDERS: PCP Internal Medicine; Visit Provider Internal Medicine
DX: Z00.01 Encounter for general adult medical examination with abnormal findings (principal); Z13.6 Encounter for screening for cardiovascular disorders; J30.9 Allergic rhinitis, unspecified
CPT/HCPCS: 36415; 80048; 80061; 80076; 81003; 84443; 85027

== ENCOUNTER 2023-12-11 08:47 | Outpatient (REF) | payer OTHER, SELFPAY ==
[2023-12-11 11:08] LABS: Vitamin D 25-OH Total 47.8 ng/mL (>30)
[2023-12-12 20:09] LABS: Homocysteine 7.7 umol/L (<11.4)
[2023-12-12 20:38] LABS: Sex Hormone Binding Globulin 24 nmol/L (10-50)
[2023-12-15 19:14] LABS: Testosterone, Free 54.6 pg/mL (35.0-155.0); Testosterone, Total 310 ng/dL (250-1100)
== END 2023-12-11 08:48 | disposition home or self-care (01) ==
LOC: HO.LAB 08:47
PROVIDERS: PCP Internal Medicine; Visit Provider Naturopath
DX: B27 Infectious mononucleosis (principal); E72.11 Homocystinuria; E55.9 Vitamin D deficiency, unspecified; R53.83 Other fatigue; R89.9 Unspecified abnormal finding in specimens from other organs, systems and tissues; R89.1 Abnormal level of hormones in specimens from other organs, systems and tissues
CPT/HCPCS: 82306; 83090; 84270; 84402; 84403; 86332

== ENCOUNTER 2023-12-13 09:13 | Outpatient (AMB) | payer OTHER, SELFPAY ==
--- NOTE | 2023-12-13 09:16 | MHC.PC.OV ---
Vital Signs 12/13/23 09:18 Height 5 ft 11 in Weight 219 lb 6 oz BMI 30.6 BP 120/82 Blood Pressure Location Lt brachial Position Sitting Pulse 74 Pulse Source Pulse Oximeter Pulse Oximetry (%) 98 Oxygen Delivery Method Room Air Intake Visit Reasons: 1mth f/u Intake Note: Patient is here to follow up on Allergic rhinitis and Hypercholesterolemia. Electron Beam Photo Mask Maker Required: No Agricultural Agent: Not Required per policy Accompanied by: Self / Same As Patient Allergies cetirizine Adverse Reaction (Intermediate, Verified 12/13/23 09:22) Dizziness montelukast Adverse Reaction (Intermediate, Verified 12/13/23 09:22) Drowsy Tobacco use date assessed: 12/13/23 Dental Screening Dental Screen Date: 11/01/23 HPI 1mth f/u HPI Details 38-year-old male presents to the office for a follow-up visit. In the last office visit he had complained of congestion and frequent sinus pain. Singulair, cetirizine, Flonase was prescribed. Patient could not tolerate Singulair or cetirizine due to dizziness and drowsiness. With the Flonase his symptoms are reasonably under control. Able to function and do activities of daily living. Using Flonase however causes dryness in the nose. [facility] Medical History (Updated 11/01/23 @ 08:58 by Juan Longo MD) Allergic rhinitis Familial hypercholesterolemia Encounter for general adult medical examination with abnormal findings No significant medical problems Surgical History No history of previous surgery Family History Mother POTS (postural orthostatic tachycardia syndrome) Father No problems noted. Brother No problems noted. Brother No problems noted. Brother No problems noted. Daughter No problems noted. Social History Housing: House Patient Tobacco Use Status: Never used Tobacco Tobacco use type: Cigarette e-Cigarette/Vaping Use: Never Used Second Hand Smoke Exposure: No service: No Current occupational status: employed Current occupation: Self Employed - Construction Current occupational exposures/hazards: No Cognitive needs: No Hearing needs: No Vision needs: No Questionnaire Thrive Questionnaire Date Thrive assessed: 11/01/23 Are you currently unemployed and looking for a job?: No MARGY-7 AMB Questionnaire MARGY-7 Date MARGY - 7 assessed: 11/01/23 Source: Developed by Drs. Tevin Ramirez, Katlyn Tucker, Moises Martin and colleagues, with an educational venice from [employer]. Physical exam (Primary Care) Vital Signs: Last Vital Signs Pulse 74 12/13/23 09:18 BP 120/82 12/13/23 09:18 Pulse Ox 98 12/13/23 09:18 Oxygen Delivery Method Room Air 12/13/23 09:18 Care Plan Goal for BP management: Blood pressure is in range. BMI result Body Mass Index 30.6 Tobacco/Smoking Status: Tobacco use Status Tobacco use date assessed 12/13/23 12/13/23 09:24 Patient Tobacco Use Status Never used Tobacco 12/13/23 09:24 Tobacco use type Cigarette 12/13/23 09:24 e-Cigarette/Vaping Use Never Used 12/13/23 09:24 Thrive Assessment: Date of Thrive Assessment Date Thrive assessed 11/01/23 12/13/23 09:24 Const General: cooperative and healthy appearing Nutritional Appearance: well nourished Orientation/consciousness: patient oriented x3 Limitations: no limitations HENMT Head: Yes normal to inspection Eyes General: appearance normal, both eyes and all related structures Neck Neck: Yes normal visual inspection Chest Chest palpation & inspection: normal palpation of entire chest wall Resp Effort & Inspection: normal respiratory effort Neuro General: patient oriented x3 Coding Level of Care Code Est Pt Level 4 (49811) Complex EM visit Add On G2211 Diagnoses Allergic rhinitis J30.9 Familial hypercholesterolemia E78.01 Assessment & Plan Assessment & Plan (1) Allergic rhinitis: Code(s): J30.9 - Allergic rhinitis, unspecified Category: Medical Plan: Symptoms to be controlled with Flonase and albuterol. Patient has not heard anything about his ENT referral for a possible deviated septum. Referral department will be contacted for an update. (2) Familial hypercholesterolemia: Code(s): E78.01 - Familial hypercholesterolemia Category: Medical Plan: Blood work shows slightly elevated LDL. Currently on no statins. Patient to try diet and exercise and repeat blood work in 6 months.
[2023-12-13 09:18] VITALS: BP 120/82; PULSE 74; O2SAT 98; BMI 30.6
== END 2023-12-13 09:48 | disposition home or self-care (01) ==
PROVIDERS: PCP Internal Medicine; Visit Provider Internal Medicine
DX: J30.9 Allergic rhinitis, unspecified (principal); E78.01 Familial hypercholesterolemia

== ENCOUNTER → 2023-12-13 09:13 | Outpatient (BNVA) | payer OTHER, SELFPAY | PROVIDERS: PCP Internal Medicine; Visit Provider Internal Medicine ==

== ENCOUNTER 2024-01-19 19:24 | Emergency (ER) | payer OTHER, SELFPAY ==
--- NOTE | ~2024-01-19 | US_ITS ---
EXAMINATION: US LOWER EXTREMITY DUPLEX, LEFT. CLINICAL INFORMATION: Left lower extremity pain and discoloration COMPARISON: None TECHNIQUE: Left lower extremity duplex Doppler techniques with wave form analysis and measurement of velocities in the common femoral, profunda femoral, superficial femoral, popliteal, tibial and peroneal arteries. The study was performed only at rest. FINDINGS: Common femoral artery: 152 cm/s, Multiphasic Profunda femoris artery: 79 cm/s, Multiphasic Superficial femoral artery (proximal): 75 cm/s, Multiphasic Superficial femoral artery (mid): 82 cm/s, Multiphasic Superficial femoral artery (distal): 93 cm/s, Multiphasic Proximal Popliteal artery: 61 cm/s, Multiphasic Mid posterior tibial artery: 52 cm/s, biphasic Peroneal artery: 22 cm/s, biphasic Anterior tibial artery: 67 cm/s, multiphasic US/US arterial duplex LE LT IMPRESSION: No evidence of hemodynamically significant stenosis of left lower extremity arterial vasculature. Electronically signed by: Sawyer Guillen DO 01/19/2024 09:40 PM [facility]
--- NOTE | ~2024-01-19 | US_ITS ---
EXAMINATION: US TRIPLEX LOWER EXTREMITY, LEFT CLINICAL INFORMATION: Left lower extremity pain COMPARISON: None available. TECHNIQUE: Color-flow triplex imaging with spectral analysis and compression Doppler were performed on the left lower extremity. FINDINGS: Respiratory variation, normal compression and augmented flow are noted throughout the left lower extremity. The visualized common femoral vein, superficial femoral vein, profunda femoral vein, popliteal vein and midcalf peroneal and posterior tibial venous segments show no evidence of deep venous thrombosis. There is no Bolaños's cyst. US/US venous duplex LE LT IMPRESSION: No evidence of deep venous thrombosis involving the left lower extremity. Electronically signed by: Sawyer Guillen DO 01/19/2024 08:54 PM EST
[2024-01-19 19:31] VITALS: BP 136/86; PULSE 91; RESP 18; TEMP 36.9; O2SAT 98; BMI 29.0
--- NOTE | 2024-01-19 19:36 | ECG_ITS ---
Test Reason : CHEST PAIN Blood Pressure : / mmHG Vent. Rate : 077 BPM Atrial Rate : 077 BPM P-R Int : 138 ms QRS Dur : 092 ms QT Int : 346 ms P-R-T Axes : 037 016 039 degrees QTc Int : 391 ms Normal sinus rhythm with sinus arrhythmia Normal ECG No previous ECGs available Referred By: Chad Manning Electronically Signed By:BLAKE DAVILA MD
--- NOTE | 2024-01-19 19:37 | ED_ITS ---
HPI - General Adult General Chief complaint: Extremity Injury, Lower Stated complaint: LT leg pain, non weight bearing Time Seen by Provider: 01/19/24 22:29 Source: patient, RN notes reviewed and old records reviewed Mode of arrival: ambulatory Limitations: no limitations History of Present Illness ED Provider: Mahogany CHOI narrative: 38-year-old male who denies any past medical history presents for evaluation of left leg pain. Patient reports that he has a history of left leg cramps. That several times a year he has severe cramping that leaves him unable to stand or walk These episodes usually last 3 or 4 hours before resolving. Patient states that he has been experiencing left leg cramping for over 12 hours now. He reports he noticed swelling his left leg and discoloration of his foot that has since resolved He reports that he usually takes magnesium and icy hot which helps get rid of the pain He has had no relief from this today He denies any history of DVT. Denies any trauma to the left leg. 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 Related Data Previous Rx's ?Medication ?Instructions ?Recorded albuterol sulfate 90 mcg/actuation 1 inh inhalation Q4-6H PRN 11/01/23 breath activated powder inhaler shortness of breath or wheezing #1 ea fluticasone propionate 50 1 spray intranasal DAILY #9.9 mL 11/01/23 mcg/actuation nasal spray,suspension (Flonase Allergy Relief) Allergies Allergy/AdvReac Type Severity Reaction Status Date / Time cetirizine AdvReac Intermediate Dizziness Verified 01/19/24 19:36 montelukast AdvReac Intermediate Drowsy Verified 01/19/24 19:36 Review of Systems 2 Constitutional: Constitutional: Denies body ache(s), Denies chills and Denies fever(s) ENT: Denies vertigo and Denies dizziness Cardiovascular: Cardiovascular: Reports chest pain (resolved) and Denies dyspnea Respiratory: Respiratory: Denies cough and Denies dyspnea Gastrointestinal: Gastrointestinal: Denies abdominal pain, Denies nausea and Denies vomiting Musculoskeletal: Musculoskeletal: Denies back pain and Reports muscle cramps Integumentary/Breasts: Skin/Breast: Denies rash Neurologic: Denies vertigo and Denies dizziness PMFSH Past Medical History Medical History (Updated 01/19/24 @ 23:04 by Milad Vides) Allergic rhinitis Familial hypercholesterolemia Encounter for general adult medical examination with abnormal findings No significant medical problems Surgical History No history of previous surgery Family History Family History Mother POTS (postural orthostatic tachycardia syndrome) Father No problems noted. Brother No problems noted. Brother No problems noted. Brother No problems noted. Daughter No problems noted. Social History Social History Housing: House Patient Tobacco Use Status: Never used Tobacco Tobacco use type: Cigarette Smoked in Last 30 Days: No e-Cigarette/Vaping Use: Never Used Second Hand Smoke Exposure: No Use of substances other than those prescribed or required for medical reasons: No Advance Directives: No Advance Directives Information Provided: No service: No Current occupational status: employed Current occupation: Self Employed - Construction Current occupational exposures/hazards: No Cognitive needs: No Hearing needs: No Vision needs: No Physical Exam ED Vital Signs: Vital Signs - 24 hr 01/19/24 19:31 01/19/24 21:13 Temperature 98.5 F 98.3 F Pulse Rate 91 61 Respiratory Rate 18 16 Blood Pressure 136/86 138/87 Pulse Oximetry 98 96 Oxygen Delivery Method Room Air Room Air BMI result Body Mass Index 29.0 Const General: healthy appearing, comfortable, no acute distress, alert and awake Nutritional Appearance: well nourished Orientation/consciousness: patient oriented x3 HENMT Head: Yes normocephalic and Yes atraumatic Eyes Eyelids: Yes eyelids normal Conjunctivae: conjunctivae normal Sclerae: sclerae normal Corneas: corneas normal Pupils: Equal, round and reactive pupils present EOM: EOMs intact bilaterally Neck Neck: Yes full ROM Resp Effort & Inspection: normal respiratory effort, able to speak in complete sentences, no audible wheezes and not labored Auscultation: clear to auscultation bilaterally Cardio Rate: regular rate Rhythm: regular rhythm GI Inspection: No distended Palpation (GI): Soft to palpation, not firm, nontender, no guarding and not rigid Skin General skin exam: elasticity normal Neuro General: patient oriented x3 Cranial nerves: Yes Equal, round and reactive pupils present and Yes Bilaterally intact EOM present Cognition (Neuro): normal cognition Extrem Other: Moving all extremities well without any obvious deformities. There was no edema, skin changes, masses to the left lower extremity. He has full range of motion at the hip, knee and ankle. DP and PT pulses 2+ Course Course Course Narrative: This is an RME done by REBECCA Manning: Additional HPI, ROS, PE not included below will be deferred to primary provider. 58-year-old male history of cramping of extremity, traumatic rupture of right distal biceps tendon presenting with left foot pain, he feels like he is unable to extend his left knee, pain is severe, he has been crawling around all day pain has been present for about 9 hours. Pain worse with movement better at rest. Reports intermittent numbness, tingling, also reports that earlier today his foot looked blue/purple. On exam faint dorsalis pedis pulses on the left, normal anterior tib posterior tib pulses on the left. Normal right foot pulses. Normal sensation distally. Medical Decision Making Medical Decision Making [facility] Narrative: 38-year-old male who denies any past medical history presents for evaluation of left leg pain and cramping. His pain has improved compared to arrival. His workup is unremarkable. He had a DVT scan as well as an arterial scan self clots or significant arterial stenosis. He had no trauma to warrant joint imaging. His CPK is negative, magnesium is normal at 2.1, his compartments are soft. No skin changes to suggest infection. Unclear etiology pain. His EKG is nonischemic, troponin is negative, his chest pain from last night does not appear to be Differential Diagnosis Differential Diagnoses: The differential diagnosis associated with the presentation includes Left leg pain DVT Arterial stenosis Rhabdomyolysis Hypomagnesemia ACS less likely Lab Data [facility] Lab Attestation statement: I reviewed the patient's lab results. No leukocytosis or anemia. Normal platelet count. No electrolyte abnormalities warranting intervention. 01/19/24 19:53 01/19/24 19:53 Labs: Lab Results 01/19/24 Range/Units 19:53 WBC 7.3 (4.8-10.8) X10*3/uL RBC 5.62 (4.60-5.80) X10*6/uL Hgb 15.5 (14.0-18.0) g/dl Hct 44.6 (42.0-52.0) % MCV 79.4 L (80.0-98.0) fL MCH 27.6 (27.0-33.0) pg MCHC 34.8 (31.0-36.0) g/dl RDW 12.9 (11.0-16.0) % Plt Count 269 (160-400) X10*3/uL MPV 9.2 L (9.4-12.4) fL Immature Gran % (Auto) 0.3 (0.0-0.4) % Neut % (Auto) 49.6 (45-73) % Lymph % (Auto) 36.4 (20-40) % Rankin % (Auto) 10.3 (2-11) % Eos % (Auto) 2.3 (0-4) % Baso % (Auto) 1.1 (0-2) % Lymph # (Auto) 2.7 (1.2-4.9) X10*3/uL Rankin # (Auto) 0.8 (0.1-1.2) X10*3/uL Eos # (Auto) 0.2 (0.0-0.4) X10*3/uL Baso # (Auto) 0.1 (0.0-0.2) X10*3/uL Abs Immat Gran (auto) 0.02 (0.00-0.03) X10*3/uL Absolute Neuts (auto) 3.6 (2.0-8.3) x10*3/uL Absolute Nucleated RBC 0.000 (0.0-0.012) X10*3/uL Nucleated RBC % (auto) 0.0 (0.0-0.2) /100WBC PT 10.9 (10.9-12.4) SEC INR 0.9 (0.9-1.1) Sodium 139 (135-145) mmol/L Potassium 4.0 (3.3-5.1) mmol/L Chloride 109 H (96-108) mmol/L Carbon Dioxide 20 L (22-29) mmol/L Anion Gap 14 (12-20) BUN 14 (9-16) mg/dL Creatinine 0.98 (0.5-1.4) mg/dL Estim Creat Clear Calc 128.2 Estimated GFR > 60 Random Glucose 104 (60-115) mg/dL Calcium 9.3 D (8.4-10.2) mg/dL Magnesium 2.1 (1.6-2.6) mg/dL Total Bilirubin 0.3 (0.0-1.0) mg/dL AST 34 (5-37) U/L ALT 44 H (0-40) U/L Alkaline Phosphatase 73 (39-117) U/L Total Creatine Kinase 104 (38-174) U/L Troponin I High Sens < 2.7 (<3.5-35.0) ng/L Total Protein 7.3 (6.5-8.0) g/dL Albumin 4.2 (3.5-5.0) g/dL Radiology Impression Discussion of test interpretation with radiology: I have reviewed the radiologist's reading. Radiologist Impression: FINDINGS: Common femoral artery: 152 cm/s, Multiphasic Profunda femoris artery: 79 cm/s, Multiphasic Superficial femoral artery (proximal): 75 cm/s, Multiphasic Superficial femoral artery (mid): 82 cm/s, Multiphasic Superficial femoral artery (distal): 93 cm/s, Multiphasic Proximal Popliteal artery: 61 cm/s, Multiphasic Mid posterior tibial artery: 52 cm/s, biphasic Peroneal artery: 22 cm/s, biphasic Anterior tibial artery: 67 cm/s, multiphasic US/US arterial duplex LE LT IMPRESSION: No evidence of hemodynamically significant stenosis of left lower extremity arterial vasculature. Electronically signed by: Sawyer Guillen DO 01/19/2024 09:40 PM [facility] [place]: Respiratory variation, normal compression and augmented flow are noted throughout the left lower extremity. The visualized common femoral vein, superficial femoral vein, profunda femoral vein, popliteal vein and midcalf peroneal and posterior tibial venous segments show no evidence of deep venous thrombosis. There is no Bolaños's cyst. US/US venous duplex LE LT IMPRESSION: No evidence of deep venous thrombosis involving the left lower extremity. Electronically signed by: Sawyer Guillen DO 01/19/2024 08:54 PM EST Discharge Plan Discharge Clinical Impression: Acute pain of left lower extremity Patient Disposition: Home, Self-Care Instructions: Leg Cramps (ED) Additional Instructions: Your workup in the ER today was reassuring. This includes your blood work, your venous scans and arterial scans There are no blood clots Your EKG was normal You may follow-up with cardiology given your intermittent chest pains Prescriptions: No Action fluticasone propionate [Flonase Allergy Relief] 50 mcg/actuation spray,suspension 1 spray intranasal DAILY Qty: 9.9 1RF Rx Instructions: administer into each nostril albuterol sulfate 90 mcg/actuation aerosol powdr breath activated 1 inh inhalation Q4-6H PRN (Reason: shortness of breath or wheezing) Qty: 1 0RF Referrals: Bull Wesley MD [Physician] - (chest pain) Print Language: Japanese
[2024-01-19 20:14] LABS: MANUAL DIFF FLAG NO
[2024-01-19 20:16] LABS: Basophils Absolute Auto 0.1 X10*3/uL (0.0-0.2); Basophils Percent Auto 1.1 % (0-2); Eosinophils Absolute Auto 0.2 X10*3/uL (0.0-0.4); Eosinophils Percent Auto 2.3 % (0-4); Hematocrit 44.6 % (42.0-52.0); Hemoglobin 15.5 g/dl (14.0-18.0); Imm Gran Abs Auto 0.02 X10*3/uL (0.00-0.03); Imm Gran Pct Auto 0.3 % (0.0-0.4); Lymphocytes Absolute Auto 2.7 X10*3/uL (1.2-4.9); Lymphocytes Percent Auto 36.4 % (20-40); Mean Corpuscular HGB Conc 34.8 g/dl (31.0-36.0); Mean Corpuscular Hemoglobin 27.6 pg (27.0-33.0); Mean Corpuscular Volume 79.4 fL (80.0-98.0); Mean Platelet Volume 9.2 fL (9.4-12.4); Monocytes Absolute Auto 0.8 X10*3/uL (0.1-1.2); Monocytes Percent Auto 10.3 % (2-11); Neutrophils Absolute Auto 3.6 x10*3/uL (2.0-8.3); Neutrophils Percent Auto 49.6 % (45-73); Platelet Count 269 X10*3/uL (160-400); Red Blood Count 5.62 X10*6/uL (4.60-5.80); Red Cell Distribution Width 12.9 % (11.0-16.0); White Blood Count 7.3 X10*3/uL (4.8-10.8)
[2024-01-19 20:20] LABS: INTERNATIONAL NORM RATIO 0.9 (0.9-1.1); Prothrombin Time 10.9 SEC (10.9-12.4)
[2024-01-19 20:30] LABS: Alanine Aminotransferase 44 U/L (0-40); Albumin Level 4.2 g/dL (3.5-5.0); Alkaline Phosphatase 73 U/L (39-117); Anion Gap 14 (12-20); Aspartate Amino Transferase 34 U/L (5-37); Bilirubin Total 0.3 mg/dL (0.0-1.0); Blood Urea Nitrogen 14 mg/dL (9-16); Calcium 9.3 mg/dL (8.4-10.2); Carbon Dioxide 20 mmol/L (22-29); Chloride 109 mmol/L (96-108); Creatinine Clr Calc Pharmacy 128.2; Estimated Glomerular Filt Rate > 60; Glucose Random 104 mg/dL (60-115); Sodium 139 mmol/L (135-145); Total Protein 7.3 g/dL (6.5-8.0)
[2024-01-19 20:38] LABS: Troponin-I High Sensitivity < 2.7 ng/L (<3.5-35.0)
[2024-01-19 21:13] VITALS: BP 138/87; PULSE 61; RESP 16; TEMP 36.8; O2SAT 96
[2024-01-19 23:16] LABS: Magnesium 2.1 mg/dL (1.6-2.6)
[2024-01-20 00:09] VITALS: BP 138/87; PULSE 61; RESP 16; TEMP 36.8; O2SAT 96
== END 2024-01-19 23:40 | disposition home or self-care (01) ==
PROVIDERS: Physician Assistant; Emergency Provider Emergency Medicine; PCP Internal Medicine
DX: M79.605 Pain in left leg (principal)
CPT/HCPCS: 36415; 80053; 82550; 83735; 84484; 85025; 85610; 93005; 93926; 93971; 99284

== ENCOUNTER → 2024-01-19 19:36 | Outpatient (BNV) | payer OTHER, SELFPAY | PROVIDERS: Emergency Provider Emergency Medicine; PCP Internal Medicine; Visit Provider Internal Medicine Cardiovascular Disease | DX: R07.9 Chest pain, unspecified (principal) | CPT/HCPCS: 93010 ==

== ENCOUNTER 2024-02-02 09:07 | Outpatient (REF) | payer OTHER, SELFPAY ==
[2024-02-02 11:39] LABS: Adenovirus F 40/41 Not Detected (Not Detect.); Astrovirus Not Detected (Not Detect.); Campylobacter Not Detected (Not Detect.); Cryptosporidium Not Detected (Not Detect.); Cyclospora cayetanensis Not Detected (Not Detect.); E. coli EAEC Not Detected (Not Detect.); E. coli EPEC Not Detected (Not Detect.); E. coli ETEC Not Detected (Not Detect.); E. coli STEC Not Detected (Not Detect.); Entamoeba histolytica Not Detected (Not Detect.); Giardia lamblia Not Detected (Not Detect.); Norovirus GI/GII Not Detected (Not Detect.); Plesiomonas shigelloides Not Detected (Not Detect.); Rotavirus A Not Detected (Not Detect.); Salmonella Not Detected (Not Detect.); Sapovirus Not Detected (Not Detect.); Shigella sp./EIEC Not Detected (Not Detect.); Vibrio Not Detected (Not Detect.); Vibrio Cholerae Not Detected (Not Detect.); Yersinia enterocolitica Not Detected (Not Detect.)
== END 2024-02-02 09:08 | disposition home or self-care (01) ==
LOC: HO.LNP 09:07
PROVIDERS: Visit Provider Naturopath
DX: R14.0 Abdominal distension (gaseous) (principal); K90.89 Other intestinal malabsorption; K59.89 Other specified functional intestinal disorders; K58.0 Irritable bowel syndrome with diarrhea
CPT/HCPCS: 87507

== ENCOUNTER 2024-05-14 09:33 | Outpatient (REF) | payer OTHER, SELFPAY ==
[2024-05-14 10:08] LABS: MANUAL DIFF FLAG NO
[2024-05-14 10:13] LABS: Basophils Absolute Auto 0.1 X10*3/uL (0.0-0.2); Basophils Percent Auto 1.2 % (0-2); Eosinophils Absolute Auto 0.1 X10*3/uL (0.0-0.4); Eosinophils Percent Auto 1.9 % (0-4); Hematocrit 48.9 % (42.0-52.0); Hemoglobin 16.2 g/dl (14.0-18.0); Imm Gran Abs Auto 0.01 X10*3/uL (0.00-0.03); Imm Gran Pct Auto 0.1 % (0.0-0.4); Lymphocytes Absolute Auto 2.6 X10*3/uL (1.2-4.9); Lymphocytes Percent Auto 38.1 % (20-40); Mean Corpuscular HGB Conc 33.1 g/dl (31.0-36.0); Mean Corpuscular Hemoglobin 26.6 pg (27.0-33.0); Mean Corpuscular Volume 80.2 fL (80.0-98.0); Mean Platelet Volume 9.5 fL (9.4-12.4); Monocytes Absolute Auto 0.7 X10*3/uL (0.1-1.2); Monocytes Percent Auto 10.6 % (2-11); Neutrophils Absolute Auto 3.2 x10*3/uL (2.0-8.3); Neutrophils Percent Auto 48.1 % (45-73); Platelet Count 239 X10*3/uL (160-400); Red Cell Distribution Width 13.2 % (11.0-16.0); White Blood Count 6.7 X10*3/uL (4.8-10.8)
[2024-05-14 10:31] LABS: Alanine Aminotransferase 86 U/L (0-40); Albumin Level 4.4 g/dL (3.5-5.0); Alkaline Phosphatase 75 U/L (39-117); Anion Gap 12 (12-20); Aspartate Amino Transferase 47 U/L (5-37); Bilirubin Total 0.8 mg/dL (0.0-1.0); Blood Urea Nitrogen 16 mg/dL (9-16); Calcium 9.3 mg/dL (8.4-10.2); Carbon Dioxide 28 mmol/L (22-29); Chloride 105 mmol/L (96-108); Estimated Glomerular Filt Rate > 60; Glucose Random 114 mg/dL (60-115); Potassium 4.1 mmol/L (3.3-5.1); Sodium 141 mmol/L (135-145)
--- OUTSIDE RECORDS SUMMARY | 2024-05-14 10:47 | XMS_ITS ---
Author Organization [facility] Address [address] [place] [phone] Care Team Providers Care Lockstitcher Name Role Phone Donta Olivas Unavailable [phone] REASON FOR VISIT ROF Encounters Encounter Location Date Provider Diagnosis [address] [id number] 04/23/2024 Donta Olivas Plan Of Treatment Next Appt Details Provider Name:Donta Downs [facility] [place], 05/14/2024 12:00:00 PM, [address] [place] [address], [phone], Progress Notes * Pacheco MORRISON B:1985 (38 yo M)Acc No.[id number]:04/23/2024 Progress Notes Patient:?Pacheco MORRISON Provider:?Donta Olivas ND :1985???Age:38 Y???Sex:Male Toan e:04/23/2024 Address:[address] [place], [place] [phone] Subjective: * Chief Complaints: * ???1. ROF. * Medical History:? Objective: * Vitals:? Assessment: Plan: * Treatment: * * Electronic signature of Wai Olivas ND on 05/14/2024 at 10:47 AM EST Sign off status: Pending * Provider:Rosalio Olivas ND Date:?01/2025 Generated for Zeferino bingham/Lawrence/Nomiitting on:?05/14/2024 10:47 AM EST
--- OUTSIDE RECORDS SUMMARY | 2024-05-14 10:47 | XMS_ITS | Patient Health Record ---
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 Problem Mixed hyperlipidemia (505303253) Mixed hyperlipidemia (E78.2) Active confirmed Problem Tension-type headach e (963921756) Tension-type headache, unspecified, not intractable (G44.209) Active confirmed Problem Chronic sinusitis (64094410) Chronic sinusitis, unspecified (J32.9) Active confirmed Problem Irritable bowel syndrome with diarrhea (306186507) Irritable bowel syndrome with diarrhea (K58.0) Active confirmed Problem Intestinal malabsorption (629571078) Other intestinal malabsorption (K90.89) Active confirmed Problem C-reactive protein abnormal (661498823) Elevated C-reactive protein (CRP) (R79.82) Active confirmed Encounters Encounter Location Date Provider Diagnosis [address] [id number] 08/21/2023 Donta Olivas Non-celiac gluten sensitivity K90.41 ; Candidal enteritis B37.82 ; Dietary counseling and surveillance Z71.3 ; Person consulting for explanation of examination or test findings Z71.2 and Other adverse food reactions, not elsewhere classified, sequela T78.1XXS [address] [id number] 11/20/2023 Donta Olivas Other fatigue R53.83 ; Decreased libido R68.82 ; Other symptoms and signs involving cognitive functions and awareness R41.89 and Dietary counseling and surveillance Z71.[address] [id number] 01/30/2024 Donta Olivas Abdominal distension (gaseous) R14.0 ; Irritable bowel syndrome with diarrhea K58.0 ; Exercise counseling Z71.82 ; Person consulting for explanation of examination or test findings Z71.2 ; Dietary counseling and surveillance Z71.3 ; Other intestinal malabsorption K90.89 and Other specified functional intestinal disorders K59.89 [place] [id number] 02/22/2024 Shirley Cardozo Abdominal distension (gaseous) R14.0 ; Irritable bowel syndrome with diarrhea K58.0 ; Other intestinal malabsorption K90.89 and Other specified functional intestinal disorders K59.[address] [id number] 06/12/2023 Donta Olivas Other fatigue R53.83 ; Gastro-esophageal reflux disease without esophagitis K21.9 ; Abdominal distension (gaseous) R14.0 ; Diarrhea, unspecified R19.7 ; Other adverse food reactions, not elsewhere classified, sequela T78.1XXS ; Other intestinal malabsorption K90.89 and Candidal enteritis B37.[address] [id number] 04/17/2024 Donta Olivas Homocystinuria E72.1 1 ; Mixed hyperlipidemia E78.2 ; Other fatigue R53.83 ; Elevated blood-pressure reading, without diagnosis of hypertension R03.0 ; Candidal enteritis B37.82 ; Unspecified abnormal finding in specimens from other organs, systems and tissues R89.9 ; Abnormal level of hormones in specimens from other organs, systems and tissues R89.1 and Testicular hypofunction E29.[address] [id number] 04/19/2024 Donta Olivas Assessments Encounter Date Diagnosis (ICD Code) Assessment Notes Treatment Notes Treatment Clinical Notes Section Notes 06/12/2023 Other fatigue (ICD-10 - R53.83) 08/21/2023 Candidal enteritis (ICD-10 - B37.82) This is a 37 yo male pt presents in-office for ROF of recent labs. Results reviewed and discussed during the visit. Bloating resolved since eliminating wheat/gluten. 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 Celiac Disease Panel: Tissue transglutaminase less than 0.1 IgA [address] Immune Complex: 1.61 H Gluten Ig.3 mcg/mL H Wheat Ig.9 mcg/mL H Discussed food sensitivities to gluten and wheat contributing to bloating, GI sxs, and inflammation. Pt to continue avoidance. Discussed and recommended resuming treatment of mackenzie. Pt to initiate nystatin. Recommended undecylenic acid for anti-fungal and biofilm disrupting actions. Discussed hypochlorhydria as possible predisposing factors for mackenzie overgrowth via high pH, and etiology of GI sxs. Discussed and educated pt on HCl challenge method of assessing stomach acid status. 08/21/2023 Non-celiac gluten sensitivity (ICD-10 - K90.41) This is a 37 yo male pt presents in-office for ROF of recent labs. Results reviewed and discussed during the visit. Bloating resolved since eliminating wheat/gluten. 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 Celiac Disease Panel: Tissue transglutaminase less than 0.1 IgA [address] Immune Complex: 1.61 H Gluten Ig.3 mcg/mL H Wheat Ig.9 mcg/mL H Discussed food sensitivities to gluten and wheat contributing to bloating, GI sxs, and inflammation. Pt to continue avoidance. Discussed and recommended resuming treatment of mackenzie. Pt to initiate nystatin. Recommended undecylenic acid for anti-fungal and biofilm disrupting actions. Discussed hypochlorhydria as possible predisposing factors for mackenzie overgrowth via high pH, and etiology of GI sxs. Discussed and educated pt on HCl challenge method of assessing stomach acid status. 11/20/2023 Other fatigue (ICD-10 - R53.83) This is a 38 yo male pt presenting in-office for ROV to f/u on headaches, fatigue/brainfog, libido. Had COVID in September. Frequent headaches again. Mostly behind the eyes - sinus pressure. Brainfog. Fatigue. Libido crashed. Had SOB, not bad now. Heartburn returned, not too bad now. PCP thinks its allergies - prescribed inhalers and oral medications. Allergy medications made him feel like crap - made throat and lungs burn. Finished nystatin. Staying hydrated. Cut wheat out completely. Labs ordered to assess methylation, inflammation, cardiovascular risk, Vit D, and testosterone. Recommended adrenal support with stimulating adaptogens to reduce stress, improve energy, brainfog, and libido. Recommended BCQ as anti-inflammatory, anti-oxidant support post-COVID. Recommended initiating men's as nutrient support post-COVID. 11/20/2023 Decreased libido (ICD-10 - R68.82) This is a 38 yo male pt presenting in-office for ROV to f/u on headaches, fatigue/brainfog, libido. Had COVID in September. Frequent headaches again. Mostly behind the eyes - sinus pressure. Brainfog. Fatigue. Libido crashed. Had SOB, not bad now. Heartburn returned, not too bad now. PCP thinks its allergies - prescribed inhalers and oral medications. Allergy medications made him feel like crap - made throat and lungs burn. Finished nystatin. Staying hydrated. Cut wheat out completely. Labs ordered to assess methylation, inflammation, cardiovascular risk, Vit D, and testosterone. Recommended adrenal support with stimulating adaptogens to reduce stress, improve energy, brainfog, and libido. Recommended BCQ as anti-inflammatory, anti-oxidant support post-COVID. Recommended initiating men's as nutrient support post-COVID. 01/30/2024 Irritable bowel syndrome with diarrhea (ICD-10 - K58.0) This is a 38 yo male pt presenting in-office for ROF of recent labs. Results reviewed and discussed during the visit. Thinks adrenal support causes chest pain, anxiety, irritability. Reduced to 1 cap QD. No fatigue. Brainfog cleared up. Libido better. Stress has been high. Heartburn bad. Loose stools. Gas. Recommended LBT to assess for SIBO/IMO as etiology of GI sxs. Pt also previously attempted addressing mackenzie overgrowth. Labs show low-normal testosterone levels. Discussed this is likely d/t lack of exercise, stress, and cortisol. Pt to conitnue adrenal support. Discussed stress management in depth. Empasized improtance of activity and exercise, recommended bodyweight exercises, ie squats, lunges, fast walking, pull ups, etc. GI pathogen panel via stool test to investigate GI sxs. Discussed and educated pt on hypochlorhydria as possible etiology of reflux, GI sxs. Discussed and provided instructions for HCL challenge to assess need for stomach pH support. 01/30/2024 Abdominal distension (gaseous) (ICD-10 - R14.0) This is a 38 yo male pt presenting in-office for ROF of recent labs. Results reviewed and discussed during the visit. Thinks adrenal support causes chest pain, anxiety, irritability. Reduced to 1 cap QD. No fatigue. Brainfog cleared up. Libido better. Stress has been high. Heartburn bad. Loose stools. Gas. Recommended LBT to assess for SIBO/IMO as etiology of GI sxs. Pt also previously attempted addressing mackenzie overgrowth. Labs show low-normal testosterone levels. Discussed this is likely d/t lack of exercise, stress, and cortisol. Pt to conitnue adrenal support. Discussed stress management in depth. Empasized improtance of activity and exercise, recommended bodyweight exercises, ie squats, lunges, fast walking, pull ups, etc. GI pathogen panel via stool test to investigate GI sxs. Discussed and educated pt on hypochlorhydria as possible etiology of reflux, GI sxs. Discussed and provided instructions for HCL challenge to assess need for stomach pH support. 02/22/2024 Irritable bowel syndrome with diarrhea (ICD-10 - K58.0) Max levels: Methane (through all) -7 Hydrogen (through 120m) -19 Results not suggestive of SIBO. Correlated with clinical presentation at [facility]. 02/22/2024 Abdominal distension (gaseous) (ICD-10 - R14.0) Max levels: Methane (through all) -7 Hydrogen (through 120m) -19 Results not suggestive of SIBO. Correlated with clinical presentation at [facility]. 04/17/2024 Homocystinuria (ICD-10 - E72.11) 04/17/2024 Mixed hyperlipidemia (ICD-10 - E78.2) 08/21/2023 Dietary counseling and surveillance (ICD-10 - Z71.3) This is a 37 yo male pt presents in-office for ROF of recent labs. Results reviewed and discussed during the visit. Bloating resolved since eliminating wheat/gluten. 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 Celiac Disease Panel: Tissue transglutaminase less than 0.1 IgA [address] Immune Complex: 1.61 H Gluten Ig.3 mcg/mL H Wheat Ig.9 mcg/mL H Discussed food sensitivities to gluten and wheat contributing to bloating, GI sxs, and inflammation. Pt to continue avoidance. Discussed and recommended resuming treatment of mackenzie. Pt to initiate nystatin. Recommended undecylenic acid for anti-fungal and biofilm disrupting actions. Discussed hypochlorhydria as possible predisposing factors for mackenzie overgrowth via high pH, and etiology of GI sxs. Discussed and educated pt on HCl challenge method of assessing stomach acid status. 02/22/2024 Other intestinal malabsorption (ICD-10 - K90.89) Max levels: Methane (through all) -7 Hydrogen (through 120m) -19 Results not suggestive of SIBO. Correlated with clinical presentation at [facility]. 01/30/2024 Exercise counseling (ICD-10 - Z71.82) This is a 38 yo male pt presenting in-office for ROF of recent labs. Results reviewed and discussed during the visit. Thinks adrenal support causes chest pain, anxiety, irritability. Reduced to 1 cap QD. No fatigue. Brainfog cleared up. Libido better. Stress has been high. Heartburn bad. Loose stools. Gas. Recommended LBT to assess for SIBO/IMO as etiology of GI sxs. Pt also previously attempted addressing mackenzie overgrowth. Labs show low-normal testosterone levels. Discussed this is likely d/t lack of exercise, stress, and cortisol. Pt to conitnue adrenal support. Discussed stress management in depth. Empasized improtance of activity and exercise, recommended bodyweight exercises, ie squats, lunges, fast walking, pull ups, etc. GI pathogen panel via stool test to investigate GI sxs. Discussed and educated pt on hypochlorhydria as possible etiology of reflux, GI sxs. Discussed and provided instructions for HCL challenge to assess need for stomach pH support. 11/20/2023 Other symptoms and signs involving cognitive functions and awareness (ICD-10 - R41.89) This is a 38 yo male pt presenting in-office for ROV to f/u on headaches, fatigue/brainfog, libido. Had COVID in September. Frequent headaches again. Mostly behind the eyes - sinus pressure. Brainfog. Fatigue. Libido crashed. Had SOB, not bad now. Heartburn returned, not too bad now. PCP thinks its allergies - prescribed inhalers and oral medications. Allergy medications made him feel like crap - made throat and lungs burn. Finished nystatin. Staying hydrated. Cut wheat out completely. Labs ordered to assess methylation, inflammation, cardiovascular risk, Vit D, and testosterone. Recommended adrenal support with stimulating adaptogens to reduce stress, improve energy, brainfog, and libido. Recommended BCQ as anti-inflammatory, anti-oxidant support post-COVID. Recommended initiating men's as nutrient support post-COVID. 06/12/2023 Gastro-esophageal reflux disease without esophagitis (ICD-10 - K21.9) 06/12/2023 Abdominal distension (gaseous) (ICD-10 - R14.0) 11/20/2023 Dietary counseling and surveillance (ICD-10 - Z71.3) This is a 38 yo male pt presenting in-office for ROV to f/u on headaches, fatigue/brainfog, libido. Had COVID in September. Frequent headaches again. Mostly behind the eyes - sinus pressure. Brainfog. Fatigue. Libido crashed. Had SOB, not bad now. Heartburn returned, not too bad now. PCP thinks its allergies - prescribed inhalers and oral medications. Allergy medications made him feel like crap - made throat and lungs burn. Finished nystatin. Staying hydrated. Cut wheat out completely. Labs ordered to assess methylation, inflammation, cardiovascular risk, Vit D, and testosterone. Recommended adrenal support with stimulating adaptogens to reduce stress, improve energy, brainfog, and libido. Recommended BCQ as anti-inflammatory, anti-oxidant support post-COVID. Recommended initiating men's as nutrient support post-COVID. 08/21/2023 Person consulting for explanation of examination or test findings (ICD-10 - Z71.2) This is a 37 yo male pt presents in-office for ROF of recent labs. Results reviewed and discussed during the visit. Bloating resolved since eliminating wheat/gluten. 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 Celiac Disease Panel: Tissue transglutaminase less than 0.1 IgA [address] Immune Complex: 1.61 H Gluten Ig.3 mcg/mL H Wheat Ig.9 mcg/mL H Discussed food sensitivities to gluten and wheat contributing to bloating, GI sxs, and inflammation. Pt to continue avoidance. Discussed and recommended resuming treatment of mackenzie. Pt to initiate nystatin. Recommended undecylenic acid for anti-fungal and biofilm disrupting actions. Discussed hypochlorhydria as possible predisposing factors for mackenzie overgrowth via high pH, and etiology of GI sxs. Discussed and educated pt on HCl challenge method of assessing stomach acid status. 01/30/2024 Person consulting for explanation of examination or test findings (ICD-10 - Z71.2) This is a 38 yo male pt presenting in-office for ROF of recent labs. Results reviewed and discussed during the visit. Thinks adrenal support causes chest pain, anxiety, irritability. Reduced to 1 cap QD. No fatigue. Brainfog cleared up. Libido better. Stress has been high. Heartburn bad. Loose stools. Gas. Recommended LBT to assess for SIBO/IMO as etiology of GI sxs. Pt also previously attempted addressing mackenzie overgrowth. Labs show low-normal testosterone levels. Discussed this is likely d/t lack of exercise, stress, and cortisol. Pt to conitnue adrenal support. Discussed stress management in depth. Empasized improtance of activity and exercise, recommended bodyweight exercises, ie squats, lunges, fast walking, pull ups, etc. GI pathogen panel via stool test to investigate GI sxs. Discussed and educated pt on hypochlorhydria as possible etiology of reflux, GI sxs. Discussed and provided instructions for HCL challenge to assess need for stomach pH support. 04/17/2024 Other fatigue (ICD-10 - R53.83) 02/22/2024 Other specified functional intestinal disorders (ICD-10 - K59.89) Max levels: Methane (through all) -7 Hydrogen (through 120m) -19 Results not suggestive of SIBO. Correlated with clinical presentation at [facility]. 04/17/2024 Elevated blood-pressure reading, without diagnosis of hypertension (ICD-10 - R03.0) 01/30/2024 Dietary counseling and surveillance (ICD-10 - Z71.3) This is a 38 yo male pt presenting in-office for ROF of recent labs. Results reviewed and discussed during the visit. Thinks adrenal support causes chest pain, anxiety, irritability. Reduced to 1 cap QD. No fatigue. Brainfog cleared up. Libido better. Stress has been high. Heartburn bad. Loose stools. Gas. Recommended LBT to assess for SIBO/IMO as etiology of GI sxs. Pt also previously attempted addressing mackenzie overgrowth. Labs show low-normal testosterone levels. Discussed this is likely d/t lack of exercise, stress, and cortisol. Pt to conitnue adrenal support. Discussed stress management in depth. Empasized improtance of activity and exercise, recommended bodyweight exercises, ie squats, lunges, fast walking, pull ups, etc. GI pathogen panel via stool test to investigate GI sxs. Discussed and educated pt on hypochlorhydria as possible etiology of reflux, GI sxs. Discussed and provided instructions for HCL challenge to assess need for stomach pH support. 08/21/2023 Other adverse food reactions, not elsewhere classified, sequela (ICD-10 - T78.1XXS) This is a 37 yo male pt presents in-office for ROF of recent labs. Results reviewed and discussed during the visit. Bloating resolved since eliminating wheat/gluten. 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 Celiac Disease Panel: Tissue transglutaminase less than 0.1 IgA 389 [address] Immune Complex: 1.61 H Gluten Ig.3 mcg/mL H Wheat Ig.9 mcg/mL H Discussed food sensitivities to gluten and wheat contributing to bloating, GI sxs, and inflammation. Pt to continue avoidance. Discussed and recommended resuming treatment of mackenzie. Pt to initiate nystatin. Recommended undecylenic acid for anti-fungal and biofilm disrupting actions. Discussed hypochlorhydria as possible predisposing factors for mackenzie overgrowth via high pH, and etiology of GI sxs. Discussed and educated pt on HCl challenge method of assessing stomach acid status. 06/12/2023 Diarrhea, unspecified (ICD-10 - R19.7) 06/12/2023 Other adverse food reactions, not elsewhere classified, sequela (ICD-10 - T78.1XXS) 01/30/2024 Other intestinal malabsorption (ICD-10 - K90.89) This is a 38 yo male pt presenting in-office for ROF of recent labs. Results reviewed and discussed during the visit. Thinks adrenal support causes chest pain, anxiety, irritability. Reduced to 1 cap QD. No fatigue. Brainfog cleared up. Libido better. Stress has been high. Heartburn bad. Loose stools. Gas. Recommended LBT to assess for SIBO/IMO as etiology of GI sxs. Pt also previously attempted addressing mackenzie overgrowth. Labs show low-normal testosterone levels. Discussed this is likely d/t lack of exercise, stress, and cortisol. Pt to conitnue adrenal support. Discussed stress management in depth. Empasized improtance of activity and exercise, recommended bodyweight exercises, ie squats, lunges, fast walking, pull ups, etc. GI pathogen panel via stool test to investigate GI sxs. Discussed and educated pt on hypochlorhydria as possible etiology of reflux, GI sxs. Discussed and provided instructions for HCL challenge to assess need for stomach pH support. 04/17/2024 Candidal enteritis (ICD-10 - B37.82) 04/17/2024 Unspecified abnormal finding in specimens from other organs, systems and tissues (ICD-10 - R89.9) 01/30/2024 Other specified functional intestinal disorders (ICD-10 - K59.89) This is a 38 yo male pt presenting in-office for ROF of recent labs. Results reviewed and discussed during the visit. Thinks adrenal support causes chest pain, anxiety, irritability. Reduced to 1 cap QD. No fatigue. Brainfog cleared up. Libido better. Stress has been high. Heartburn bad. Loose stools. Gas. Recommended LBT to assess for SIBO/IMO as etiology of GI sxs. Pt also previously attempted addressing mackenzie overgrowth. Labs show low-normal testosterone levels. Discussed this is likely d/t lack of exercise, stress, and cortisol. Pt to conitnue adrenal support. Discussed stress management in depth. Empasized improtance of activity and exercise, recommended bodyweight exercises, ie squats, lunges, fast walking, pull ups, etc. GI pathogen panel via stool test to investigate GI sxs. Discussed and educated pt on hypochlorhydria as possible etiology of reflux, GI sxs. Discussed and provided instructions for HCL challenge to assess need for stomach pH support. 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 Time spent preparing to see the patient: Appointment Start time: End time: Post appointment time documenting clinical information in the medical record & care coordination: Total Time: performing a medically appropriate examination and/or evaluation counseling and educating the patient on etiology, results, and management of health concerns ordering supplementatio ns, tests, or procedures and explaining risks, benefits, and alternatives ... patient presents to review symptoms. 08/21/2023 Other Patient Educated with: [email or web address].pd f (Nystatin.p df) Consent obtained. Time spent preparing to see the patient: 5 min Appointment Start time: Donta Olivas 08/21/2023 03:42:21 PM EDT > End time: Donta Olivas 08/21/2023 04:04:29 PM EDT > Post appointment time documenting clinical information in the medical record & care coordination: 5 min Total Time: 32 min performing a medically appropriate examination and/or evaluation counseling and educating the patient on etiology, results, and management of health concerns ordering supplementatio ns, tests, or procedures and explaining risks, benefits, and alternatives This is a 37 yo male pt presents in-office for ROF of recent labs. Results reviewed and discussed during the visit. Bloating resolved since eliminating wheat/gluten. 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 Celiac Disease Panel: Tissue transglutaminase less than 0.1 IgA 389 H Mackenzie Immune Complex: 1.61 H Gluten Ig.3 mcg/mL H Wheat Ig.9 mcg/mL H Discussed food sensitivities to gluten and wheat contributing to bloating, GI sxs, and inflammation. Pt to continue avoidance. Discussed and recommended resuming treatment of mackenzie. Pt to initiate nystatin. Recommended undecylenic acid for anti-fungal and biofilm disrupting actions. Discussed hypochlorhydria as possible predisposing factors for mackenzie overgrowth via high pH, and etiology of GI sxs. Discussed and educated pt on HCl challenge method of assessing stomach acid status. 11/20/2023 Other Consent obtained. Time spent preparing to see the patient: 5 min Appointment Start time: Donta Olivas 11/20/2023 02:56:10 PM EDT > End time: Donta Olivas 11/20/2023 03:33:52 PM EDT > Post appointment time documenting clinical information in the medical record & care coordination: 5 min Total Time: 47 min performing a medically appropriate examination and/or evaluation counseling and educating the patient on etiology, results, and management of health concerns ordering supplementatio ns, tests, or procedures and explaining risks, benefits, and alternatives This is a 38 yo male pt presenting in-office for ROV to f/u on headaches, fatigue/brainfog, libido. Had COVID in September. Frequent headaches again. Mostly behind the eyes - sinus pressure. Brainfog. Fatigue. Libido crashed. Had SOB, not bad now. Heartburn returned, not too bad now. PCP thinks its allergies - prescribed inhalers and oral medications. Allergy medications made him feel like crap - made throat and lungs burn. Finished nystatin. Staying hydrated. Cut wheat out completely. Labs ordered to assess methylation, inflammation, cardiovascular risk, Vit D, and testosterone. Recommended adrenal support with stimulating adaptogens to reduce stress, improve energy, brainfog, and libido. Recommended BCQ as anti-inflammatory, anti-oxidant support post-COVID. Recommended initiating men's as nutrient support post-COVID. 01/30/2024 Other Consent obtained. Time spent preparing to see the patient: 6 min Appointment Start time: Donta Olivas 01/30/2024 03:34:24 PM EST > End time: Donta Olivas 01/30/2024 03:58:20 PM EST > Post appointment time documenting clinical information in the medical record & care coordination: 5 min Total Time: 35 min performing a medically appropriate examination and/or evaluation counseling and educating the patient on etiology, results, and management of health concerns ordering supplementatio ns, tests, or procedures and explaining risks, benefits, and alternatives This is a 38 yo male pt presenting in-office for ROF of recent labs. Results reviewed and discussed during the visit. Thinks adrenal support causes chest pain, anxiety, irritability. Reduced to 1 cap QD. No fatigue. Brainfog cleared up. Libido better. Stress has been high. Heartburn bad. Loose stools. Gas. Recommended LBT to assess for SIBO/IMO as etiology of GI sxs. Pt also previously attempted addressing mackenzie overgrowth. Labs show low-normal testosterone levels. Discussed this is likely d/t lack of exercise, stress, and cortisol. Pt to conitnue adrenal support. Discussed stress management in depth. Empasized improtance of activity and exercise, recommended bodyweight exercises, ie squats, lunges, fast walking, pull ups, etc. GI pathogen panel via stool test to investigate GI sxs. Discussed and educated pt on hypochlorhydria as possible etiology of reflux, GI sxs. Discussed and provided instructions for HCL challenge to assess need for stomach pH support. Plan Of Treatment Pending Test Test Name Order Date IRON, TIBC AND FERRITIN PANEL 07/27/2021 LIPID PANEL 07/27/2021 FSH AND LH 09/29/2021 THYROID PEROXIDASE AND THYROGLOBULIN ANT IBODIES 09/29/2021 TESTOSTERONE, TOTAL AND FREE AND SEX HOR LINDA BINDING GLOBULIN 03/28/2022 TESTOSTERONE, TOTAL AND FREE AND SEX HOR LINDA BINDING GLOBULIN 11/20/2023 TESTOSTERONE, TOTAL AND FREE AND SEX HOR LINDA BINDING GLOBULIN 07/27/2021 TESTOSTERONE, TOTAL AND FREE AND SEX HOR LINDA BINDING GLOBULIN 04/17/2024 ESTROGENS, FRACTIONATED, LC/MS/MS 2021 COMPREHENSIVE METABOLIC PANEL 07/27/2021 COMPREHENSIVE METABOLIC PANEL 04/17/2024 LD 07/27/2021 GGT 07/27/2021 URIC ACID 07/27/2021 CARDIO IQ(TM) LIPOPROTEIN (a) 04/17/2024 CBC (INCLUDES DIFF/PLT) 07/27/2021 CBC (INCLUDES DIFF/PLT) 04/17/2024 ANTHONY IFA SCREEN W/REFL TO TITER AND PATTE RN, IFA 07/27/2021 HS CRP 07/27/2021 CARDIO IQ(TM) HS CRP 04/17/2024 CARDIO IQ(TM) HS CRP 03/28/2022 CARDIO IQ(TM) HEMOGLOBIN A1c 04/17/2024 CARDIO IQ(TM) APOLIPOPROTEIN B CARDIO IQ(TM)HOMOCYSTEINE CARDIOVASCULAR 04/17/2024 CARDIO IQ(TM)HOMOCYSTEINE CARDIOVASCULAR 03/28/2022 HOMOCYSTEINE, CARDIOVASCULAR 11/20/2023 HOMOCYSTEINE, CARDIOVASCULAR 07/27/2021 INSULIN 07/27/2021 PROGESTERONE 07/27/2021 DHEA SULFATE 07/27/2021 VITAMIN B12/FOLATE, SERUM PANEL 07/28/19 FERRITIN 09/29/2021 T4, FREE 07/27/2021 CORTISOL, A.M. 07/27/2021 TSH 07/27/2021 GLUTEN (F79) IGE 06/12/2023 WHEAT (F4) IGE 06/12/2023 T3, FREE 07/27/2021 METHYLMALONIC ACID 07/27/2021 PREGNENOLONE, LC/MS/MS 07/27/2021 TSI (THYROID STIMULATING IMMUNOGLOBULIN) 09/29/2021 DIHYDROTESTOSTERONE, FREE, SERUM 022 VITAMIN A 07/27/2021 VITAMIN B6 07/27/2021 VITAMIN B2 (RIBOFLAVIN), PLASMA 07/28/19 HISTAMINE, PLASMA 07/27/2021 MAGNESIUM, RBC 07/27/2021 ZINC, RBC 07/27/2021 WHEAT (F4) IGG 06/12/2023 CARDIO IQ(TM) VITAMIN D, 25 HYDROXY, LC/ MS/MS 03/28/2022 TRYPTASE 07/27/2021 MACKENZIE ALBICANS AB (IGG,IGA,IGM) 2021 MACKENZIE ALBICANS AB (IGG,IGA,IGM) 2022 MACKENZIE ALBICANS AB (IGG,IGA,IGM) 2023 SELENIUM, RBC 07/27/2021 METHYLENETETRAHYDROFOLATE REDUCTASE (MTH FR), DNA 07/27/2021 ALLERGEN GLUTEN IGG 06/12/2023 OMEGA 3 AND 6 FATTY ACIDS, PLASMA 2021 VITAMIN D 25 OH 11/20/2023 LACTULOSE BREATH TEST 12/26/2022 LACTULOSE BREATH TEST 01/30/2024 CARDIO IQ(R) LIPID PANEL WITH REFLEX TO DIRECT LDL 03/28/2022 CARDIO IQ(R) LIPID PANEL WITH REFLEX TO DIRECT LDL 04/17/2024 CARDIO IQ(R) LP PLA2 ACTIVITY 04/17/2024 CELIAC DISEASE DIAGNOSTIC PANEL 06/12/19 Cardio IQ (R) ADMA and SDMA 04/17/2024 Cardio IQ(R) Oxidized LDL 04/17/2024 MACKENZIE IMMUNE COMPLEX 06/12/2023 MACKENZIE IMMUNE COMPLEX 11/20/2023 MACKENZIE IMMUNE COMPLEX 03/28/2022 MACKENZIE IMMUNE COMPLEX 07/27/2021 MACKENZIE IMMUNE COMPLEX 04/17/2024 TICK BORNE DISEASE, ANTIBODY PANEL 09/29 CORTISOL, LC/MS, SALIVA, 3 SAMPLES 09/29 CARDIO IQ(R) INSULIN RESISTANCE PANEL WI TH SCORE 04/17/2024 TMAO (TRIMETHYLAMINE N OXIDE) 04/17/2024 GASTROINTESTINAL PATHOGEN PANEL, REAL TI ME PCR 01/30/2024 Next Appt Details Provider Name:Donta Downs [facility] [place], 05/14/2024 12:00:00 PM, [address], [place], [phone], Insurance Providers Payer Name Payer Address Payer Phone Subscriber Number Group Number Insured Name Patient Relationship to Insured Coverage Start Date Coverage End Date [facility] [address] [place], [place] [id number] [id number] Pacheco Bonner Self - patient is the insured Medical (General) History Surgical History Surgery Date(Month/Year) Tendon repair surgery 07/01/2020
--- OUTSIDE RECORDS SUMMARY | 2024-05-14 10:47 | XMS_ITS ---
Author Organization [facility] Address [address] [place] [phone] Care Team Providers Care Hog Trader Name Role Phone Donta Olivas Unavailable [phone] Allergies No Known Allergies REASON FOR VISIT ROV Encounters Encounter Location Date Provider Diagnosis [address] [id number] 05/14/2024 Donta Olivas Assessments Encounter Date Diagnosis (ICD Code) Assessment Notes Treatment Notes Treatment Clinical Notes Section Notes 05/14/2024 Other Consent obtained. Time spent preparing to see the patient: Appointment Start time: End time: Post appointment time documenting clinical information in the medical record & care coordination: Total Time: performing a medically appropriate examination and/or evaluation counseling and educating the patient on etiology, results, and management of health concerns ordering supplementations , tests, or procedures and explaining risks, benefits, and alternatives ... patient presents to review symptoms. Plan Of Treatment Next Appt Details Provider Name:Donta Downs [facility] [place], 05/14/2024 12:00:00 PM, [address] [place] [address], [phone], Progress Notes * Pacheco MORRISON B:1985 (38 yo M)Acc No.[id number]:05/14/2024 Progress Notes Patient:?Pacheco MORRISON Provider:?Donta Olivas ND :1985???Age:38 Y???Sex:Male Toan e:05/14/2024 Address:[address] [place] [address] Subjective: * Chief Complaints: * ???1. ROV. * HPI: ???CC1:? CC// headaches, fatigue/brainfog, libido ___ 05/14/2024 This pt presents in-office for ROF of recent labs. Results reviewed and discussed during the visit. ___ 01/30/2024 Donta Olivas 01/30/2024 03:34:24 PM EST > Donta Olivas 01/30/2024 03:58:20 PM EST > This pt presents in-office for ROF of recent labs. Results reviewed and discussed during the visit. Thinks adrenal support causes chest pain, anxiety, irritability. Reduced to 1 cap QD. No fatigue. Brainfog cleared up. Libido better. Stress has been high. Heartburn bad. Loose stools. Gas. * ROS:?General/Constitutional:?Patient denies?fever , chills?.?Respiratory:?Patient denies?shortness of breath , cough.?Cardiovascular:?Patient denies?chest pain, fluid accumulation in the legs.?Gastrointestinal:?Patient denies?rectal bleeding, change in stools.?Neurologic:?Patient denies?difficulty speaking , loss of strength.? * Medical History:?Medical His tory Verified. * Surgical History:?Tendon rep air surgery 07/01/2020. * Family History:?No Family Hi story documented..? * Social History:?tobacco: denies current or past use etoh: denies. * Medications:?None * Allergies:?N.K.D.A. Objective: * Vitals:? * Examination: ???General Examination: ?GENERAL APPEARANCE:?alert, well hydrated, in no distress .?HEAD:?normocephalic, atraumatic.?EYES:?pupils equal, round, reactive to light and accommodation, conjunctiva clear.?EARS:?normal.?NOSE:?external nose- no gross deformities..?NECK/THYROID:?neck supple, full range of motion, trachea midline.?SKIN:?normal, good turgor, no rashes, no suspicious lesions, normal hair distribution, warm and dry.?LUNGS:?no wheezes, rales, rhonchi.?CHEST:?no gross rib deformity, normal shape and expansion.?ABDOMEN:?nondistended.?BACK:?full range of motion, normal.?NEUROLOGIC:?cognitive exam grossly normal, cooperative with exam, cranial nerves 2-12 grossly intact, gait normal.?PSYCH:?alert, oriented.? Assessment: * Assessment: ... patient presents to review symptoms. Plan: * Treatment: * Preventive Medicine:?Supplements: - Adrenal Support by Vital Nutrients: Take 2 capsules first thing in the morning, within 1 hour of waking, ideally on empty stomach if well tolerated. Can take a second dose within 5 hours of waking, ie between 10am-12 noon.? - BCQ by Vital Nutrients: Take 2 capsules 2-3x daily to reduce inflammation and provide anti-oxidant support. - Men's . Continue: - Undecylenic Acid by Ida: Take 3-5 softgels 3x daily, away from food. - Homocysteine Nutrients by [facility] [place] [facility]: Take 1 daily to lower homocysteine. Contains methylated B vitamins needed for methylation: B2 (Riboflavin), B6, Folate, and B12, but no Niacin, which dumps methyl groups, and also contains the methyl donor trimethylglycine (TMG AKA Betaine). - Protosorb Magnesium (Magnesium L-Threonate) by Protocols for Life Balance -- Take 1 capsule in the morning, and 2 capsules in the evening for stress, cardiovascular health, and blood pressure. - [place]-3. - Vitamin D3 + K2. [email or web address] ___ HCL challenge test (don't do this test on any smaller meals or snacks): - this does not have to be done on consecutive days or consecutive meals, just similar size meals for each dose - 1 tablet before or with the first meal - 2 tablets before or with your second meal - 3 tablets before the 3rd meal - 4 tablet before the 4th bigger meal - if you notice burning at any time, back down on this dose to the dose you did not have that at and stay there - if you don't notice any burning, keep increasing until you get to the 4 tablets ... IF HCL help, can continue with... - Betaine HCl (RECESS.)- get this supplement and stay at the highest dose you did not experience burning, or at the full 4 tablet dose if no burning was experienced to support stomach acid - If you develop any burning, back down on the dosage - can use with bigger meals, a smaller amount can be used with smaller meals if this affects you negatively. * * Electronic signature of Wai Olivas ND on 05/14/2024 at 10:47 AM EST Sign off status: Pending * Provider:?Donta Olivas ND Date:?06/2024 Generated for Zeferino bingham/Lawrence/Milton on:?05/14/2024 10:47 AM EST History and Physical Notes * Examination Category Sub-Category Detail Notes Category Not es General Examination GENERAL APPEARANCE: alert, w ell hydrated, in no distress HEAD: normocephalic, atrau matic EYES: pupils equal, round, reactive to light and accommodation, conjunctiva clear EARS: normal NOSE: external nose- no gr oss deformities. NECK/THYROID: neck supple, full ra nge of motion, trachea midline CHEST: no gross rib deformi ty, normal shape and expansion LUNGS: no wheezes, rales, r honchi ABDOMEN: nondistended NEUROLOGIC: cognitive exam gross ly normal, cooperative with exam, cranial nerves 2-12 grossly intact, gait normal SKIN: normal, good turgor, no rashes, no suspicious lesions, normal hair distribution, warm and dry BACK: full range of motion , normal PSYCH: alert, oriented
--- OUTSIDE RECORDS SUMMARY | 2024-05-14 10:47 | XMS_ITS ---
Author Organization [facility] Address [address] [place] [phone] Care Team Providers Care Garnishment Specialist Name Role Phone Donta Olivas [phone] REASON FOR VISIT UPDATED Labs#W Encounters Encounter Location Date Provider Diagnosis [address] [id number] 04/19/2024 Donta Olivas Plan Of Treatment Next Appt Details [facility] 12:00:00 PM, [address] [place] [address], [phone], Progress Notes * Pacheco MORRISON B:1985 (38 yo M)Acc No.[id number]:04/19/2024 Patient:?TAMIKOPacheco :1985???Age:38 Y???Sex:Male Address:[address] [place] [address] * true * Date:? Generated for Printi ng/Lawrence/eTransmitting on:?05/14/2024 10:47 AM EST
[2024-05-15 07:09] LABS: Sex Hormone Binding Globulin 24 nmol/L (10-50)
[2024-05-22 17:19] LABS: Testosterone, Free 51.9 pg/mL (35.0-155.0); Testosterone, Total 339 ng/dL (250-1100)
== END 2024-05-14 09:34 | disposition home or self-care (01) ==
LOC: HO.LAB 09:33
PROVIDERS: PCP Internal Medicine; Visit Provider Naturopath
DX: E72.11 Homocystinuria (principal); E78.2 Mixed hyperlipidemia; R53.83 Other fatigue; R03.0 Elevated blood-pressure reading, without diagnosis of hypertension; B37.82 Candidal enteritis
CPT/HCPCS: 36415; 80053; 84270; 84402; 84403; 85025

== ENCOUNTER 2024-06-27 14:22 | Outpatient (AMB) | payer OTHER, SELFPAY ==
--- NOTE | 2024-06-27 14:24 | MHC.PC.OV ---
Vital Signs 06/27/24 14:29 Height 6 ft 1 in Weight 230 lb 2 oz BMI 30.4 BP 120/70 Blood Pressure Location Lt brachial Position Sitting Pulse 86 Pulse Source Pulse Oximeter Temp 97.3 F Temp Source Temporal Artery Scan Pulse Oximetry (%) 98 Oxygen Delivery Method Room Air Intake Visit Reasons: f/u appt Intake Note: Patient is here to follow up on Hypercholesterolemia, Migraines. Toolmaker Grade Three Required: No Boat Patcher Plastic: Present Accompanied by: Child Allergies cetirizine Adverse Reaction (Intermediate, Verified 06/27/24 14:27) Dizziness montelukast Adverse Reaction (Intermediate, Verified 06/27/24 14:27) Drowsy Tobacco use date assessed: 06/27/24 Dental Screening Dental Screen Date: 06/27/24 Did you have a dental visit in the last 12 months?: Yes Did you have a dental problem in the last 6 months where you did not have access to dental care?: No Was dental information given to patient?: Patient has dentist [facility] Medical History (Updated 01/21/24 @ 00:00 by Tien Harris) Allergic rhinitis Familial hypercholesterolemia Encounter for general adult medical examination with abnormal findings No significant medical problems Surgical History No history of previous surgery Family History Mother POTS (postural orthostatic tachycardia syndrome) Father No problems noted. Brother No problems noted. Brother No problems noted. Brother No problems noted. Daughter No problems noted. Social History Housing: House Patient Tobacco Use Status: Never used Tobacco Tobacco use type: Cigarette e-Cigarette/Vaping Use: Never Used Second Hand Smoke Exposure: No service: No Current occupational status: employed Current occupation: Self Employed - Construction Current occupational exposures/hazards: No Cognitive needs: No Hearing needs: No Vision needs: No Questionnaire PHQ-9 Over the last 2 weeks, how often have you been bothered by any of the following problems? 1. Little interest or pleasure in doing things: not at all 2. Feeling down, depressed, or hopeless: not at all 3. Trouble falling or staying asleep, or sleeping too much: not at all 4. Feeling tired or having little energy: not at all 5. Poor appetite or overeating: not at all 6. Feeling bad about yourself - or that you are a failure or have let yourself or your family down: not at all 7. Trouble concentrating on things, such as reading the newspaper or watching television: not at all 8. Moving or speaking so slowly that other people could have noticed. Or the opposite - being so fidgety or restless that you have been moving around a lot more than usual: not at all 9. Thoughts that you would be better off or of hurting yourself in some way: not at all Total score: 0 Depression Screening Interpretation: Negative Depression Screening Done: Yes Source: Developed by Drs. Tevin Ramirez, Katlyn Tucker, Moises Martin and colleagues, with an educational venice from [employer]. Thrive Questionnaire Date Thrive assessed: 06/27/24 I am a: Patient What is your living situation today?: I have a steady place to live Within the past 12 months, did the food you bought not last and you didn't have the money to get more?: Never true Within the past 12 months, did you worry whether your food would run out before you got money to buy more?: Never true Do you have trouble paying for medicines?: No Do you have trouble getting transportation to medical appointments?: No Do you have trouble paying your heating and electricity bill?: No Do you have trouble taking care of your child, family member or friend?: No Do you have trouble with day-to-day activities such as bathing, preparing meals, shopping, managing finances, etc.?: No Are you currently unemployed and looking for a job?: No Are you interested in more education?: No Please select the resources that you would like help with: None Currently or been in a relationship where the following occur: No concerns reported THRIVE Score: 0 AUDIT C Alcohol Use Questionnaire (AUDIT-C) 1. How often do you have a drink containing alcohol?: Monthly or less 2. How many drinks containing alcohol do you have on a typical day when you are drinking?: 1 or 2 Total Score: 1 MARGY-7 AMB Questionnaire MARGY-7 Date MARGY - 7 assessed: 06/27/24 Feeling nervous, anxious, or on edge: 0 = Not at all Not being able to stop or control worryin = Not at all Worrying too much about different things: 0 = Not at all Trouble relaxin = Not at all Being so restless that it is hard to sit still: 0 = Not at all Becoming easily annoyed or irritable: 0 = Not at all Feeling afraid as if something awful might happen: 0 = Not at all Total MARGY-7 score (0-4 normal; 5-9 mild; 10-14 moderate; 15-21 severe): 0 Source: Developed by Drs. Tevin Ramirez, Katlyn Tucker, Moises Martin and colleagues, with an educational venice from [employer]. Physical exam (Primary Care) Vital Signs: Last Vital Signs Temp 97.3 F 06/27/24 14:29 Pulse 86 06/27/24 14:29 BP 120/70 06/27/24 14:29 Pulse Ox 98 06/27/24 14:29 Oxygen Delivery Method Room Air 06/27/24 14:29 BMI result Body Mass Index 30.4 Tobacco/Smoking Status: Tobacco use Status Tobacco use date assessed 06/27/24 06/27/24 14:28 Patient Tobacco Use Status Never used Tobacco 06/27/24 14:28 Tobacco use type Cigarette 06/27/24 14:28 e-Cigarette/Vaping Use Never Used 06/27/24 14:28 PHQ-9: PHQ-9 Score PHQ-9: Total score 0 06/27/24 14:28 Depression Screening Interpretation: Negative Thrive Assessment: Date of Thrive Assessment Date Thrive assessed 06/27/24 06/27/24 14:28 Currently or been in a relationship where the following occur: No concerns reported Coding Level of Care Code Est Pt Level 3 (13421) Complex EM visit Add On G2211 Diagnoses Allergic rhinitis J30.9 Assessment & Plan Assessment & Plan (1) Allergic rhinitis: Code(s): J30.9 - Allergic rhinitis, unspecified Category: Medical Plan: History of Present Illness The patient is a 40-year-old male presenting for an annual physical examination and evaluation of ongoing hyperlipidemia management. He recently completed physical therapy for foot pain and has a follow-up appointment with a pharmaceutical sales pending. There are no major health concerns, but he is currently prescribed a statin for hyperlipidemia. The patient is keen to understand the necessity of this medication, given his low cardiovascular risk profile. He expressed a desire to avoid unnecessary medication exposure, justified by an absence of family history of heart disease, normal blood pressure, no diabetes, and as a nonsmoker. The patient attributes past chest discomfort to muscular causes, with no ongoing symptoms. Concerns about long-term medication safety were discussed, with reassurance provided regarding the low risk associated with maintaining current statin therapy. Social History - Exercises through physical therapy sessions for foot pain. - No history of smoking. Review of Systems - Cardiovascular: Denies significant chest pain currently, reports previous discomfort believed to be muscular. - Gastrointestinal: Denies abdominal pain. - Musculoskeletal: Reports recent foot pain under physical therapy management. Physical Exam General: Cooperative and healthy appearing Nutritional Appearance: Well nourished Orientation/consciousness: Patient oriented x3 Limitations: No limitations Head: Normal to inspection General: Appearance normal, both eyes and all related structures Neck: Normal visual inspection Chest: Normal palpation of entire chest wall Respiratory: N ormal respiratory effort Neurology: Patient oriented x3, no chest pain, risk for heart disease is low, no family history, no blood pressure issues, no diabetes, nonsmoker. Results Plan The patient will continue current management with statin therapy addressing hyperlipidemia, as the benefits of reducing cardiovascular risk outweigh the negligible long-term use risks observed at the 10 mg dose. Fasting blood work will be arranged to evaluate lipid levels, and labs will be reviewed for any necessary medication adjustments. The upcoming pharmaceutical sales evaluation on July 11 will provide further guidance on the patient's foot pain. Continued monitoring and reassessment of any symptoms will be ongoing, supporting decision making in medication use based on risk-benefit assessment. Patient was informed and verbally consented to the use of an ambient scribe for clinic note documentation during this visit. Discussion Notes I discussed with the patient the affects of statin therapy, emphasizing that low-dose statin use poses minimal risk particularly given the absence of family history, normal blood pressure, no diabetes, and nonsmoking status. Statins provide a means to manage cardiovascular risk effectively, a choice the patient is encouraged to continue while periodic assessments such as the upcoming fasting bloodwork remain vital in monitoring patients LDL levels. I reassured the patient about the low risk associated currently with muscle chest pain and our focus remains on continued symptom evaluation. I outlined follow-up plans and encouraged continued engagement with specialist care for his foot to further evaluate and manage specific discomforts. Patient Instructions - Continue taking your statin medication as prescribed. - Schedule a fasting blood test as ordered. - Follow up with the pharmaceutical sales as planned. - Monitor any symptoms and report changes. - Contact us if you experience new or worsening chest pain. Orders: Referrals Ear/Nose/Throat Referral J30.9 - Allergic rhinitis, unspecified
[2024-06-27 14:29] VITALS: BP 120/70; PULSE 86; TEMP 36.3; O2SAT 98; BMI 30.4
--- OUTSIDE RECORDS SUMMARY | 2024-06-27 17:23 | XMS_ITS ---
[facility] Name [facility] Organization [facility] Encounters Encounter Type Encounter Reason Primary Diagnosis Location Date [facility] 05/23/2024 [facility] 05/14/2024 [facility] 04/24/2024 [facility] 02/22/2024 [facility] 01/30/2024 [facility] 11/20/2023 [facility] 08/21/2023 [facility] 06/12/2023 Ambulatory [facility] 04/12/2023 Ambulatory Collabor[facility] 12/26/2022 Care Team Organization Name Specialty Phone Email Start Date End Da te [facility] MENDOZA LEIVA Primary Care 04/02/2023
--- OUTSIDE RECORDS SUMMARY | 2024-06-27 17:23 | XMS_ITS | Patient Health Record ---
Author Organization [facility] Address [address] [place] [id number] Care Team Providers Care Liberal Arts Dean Name Role Phone Donta Olivas Unavailable [phone] Shirley Cardozo DO Unavailable [phone] Allergies No Known Allergies Results Component Value Reference Range Notes CARDIO IQ(R) INSULIN RESISTA NCE PANEL WITH SCORE Reviewed date:05/30/2024 08:43:51 AM Interpretation: Performing Lab:[facility], [facility],[address] [facility] Conchis Kebede MD,PhD,STEVE Notes/Report: FASTING: YES FASTING:YES PATIENT REFUSED SOME TESTING; PATIENT ENCOURAGED 0; 0; 0; 0; 0; 0; 0; 0; 0; 0; 0; 0 Received Date: [id number] INSULIN, INTACT, LC/MS/MS 12 < OR = 16 uIU/m L Insulin concentration can be converted to pmol/L by applying the conversion factor: 1 uIU/mL = 5.97 pmol/L For additional information, please refer to http://education.[employer].com/faq/AYT514 (This link is being provided for informational/educational purposes only.) This test was developed and its analytical performance characteristics have been determined by [facility]. It has not been cleared or approved by the FDA. This assay has been validated pursuant to the CLIA regulations and is used for clinical purposes. C-PEPTIDE, LC/MS/MS 1.94 0.68-2.16 ng/mL INSULIN RESISTANCE SCORE 50 < OR = 66 Insulin Sensitive < 33; Impaired Insulin Sensitivity 33-66; Insulin Resistant >66 A score below 33 is optimal. The insulin resistance score correlates with steady state glucose levels achieved during an insulin suppression test, a standard research test for insulin resistance. The score is based on insulin and C-peptide results (Moni F, Yousuf D, Tigre BENITO, et al. Insulin resistance probability scores for apparently healthy individuals. J Endocr Soc. 2018;2(9):0843-4595). For additional information, please refer to http://education.[employer].com/faq/GIW899 (This link is being provided for informational/educational purposes only.) This test was developed and its analytical performance characteristics have been determined by [facility]. It has not been cleared or approved by the FDA. This assay has been validated pursuant to the CLIA regulations and is used for clinical purposes. Cardio IQ(R) Oxidized LDL Reviewed date:05/30/2024 08:43:51 AM Interpretation: Performing Lab:[facility] [employer].[address] [place], [place] [id number] Karina Porter Notes/Report: Received Date: 0; 0; 0; 0; 0; 0; 0; 0; 0; 0; 0; 0 FASTING:YES PATIENT REFUSED SOME TESTING; PATIENT ENCOURAGED FASTING: YES OxLDL 51 <60 U/L Based on a recent study of an 'apparently healthy' and non-metabolic syndrome population(1), the following cut-offs have been defined for OxLDL: A cut-off of <60 U/L defines a population with a low relative risk of developing metabolic syndrome, a range of 60 to 69 U/L defines a population with a moderate relative risk (2.8 fold) and >=70 U/L defines a population with a high relative risk (3.5-fold). (Reference: 1-Marycruz et al. KATELYN. 2008; 299: 6692-3751.) Cardio IQ (R) ADMA and SDMA Reviewed date:05/30/2024 08:43:51 AM Interpretation: Performing Lab:[facility] [place] [address] Ave, [address], [id number] Karina Porter Notes/Report: Received Date: [id number] 0; 0; 0; 0; 0; 0; 0; 0; 0; 0; 0; 0 FASTING:YES PATIENT REFUSED SOME TESTING; PATIENT ENCOURAGED FASTING: YES ADMA 104 <100 ng/mL This test was developed and its analytical performance characteristics have been determined by [facility]. It has not been cleared or approved by the U.S. Food and Drug Administration. This assay has been validated pursuant to the CLIA regulations and is used for clinical purposes. Elevated ADMA levels are associated with significant subclinical atherosclerosis while elevated SDMA levels are associated with kidney function and strongly correlate with reduced eGFR. Available prospective studies suggest an increased risk of cardiovascular disease with higher ADMA concentrations (1). Based on an internal reference range study using 180 'apparently healthy,' non-smoking donors, CHL has defined the following cut-offs for ADMA: A cut-off of <100 ng/mL defines an 'apparently healthy' population at optimal relative risk for a cardiovascular event, 100-123 ng/mL defines a population at moderate relative risk for a cardiovascular event, and >123 ng/mL defines a high relative risk population. (Reference: 1-Jenna P. et al. J Am Heart Assoc. 2015; 4: [id number]). SDMA 81 73-135 ng/mL CARDIO IQ(R) LP PLA2 ACTIVIT Y Reviewed date:05/30/2024 08:43:51 AM Interpretation: Performing Lab:[facility] [place] [address], [address], [id number] Karina Porter Notes/Report: Received Date: 0; 0; 0; 0; 0; 0; 0; 0; 0; 0; 0; 0 FASTING:YES PATIENT REFUSED SOME TESTING; PATIENT ENCOURAGED FASTING: YES LP PLA2 ACTIVITY 136 <124 nmol/min/mL Relative Risk: Optimal <=123 nmol/min/mL; High >123 nmol/min/mL. This test was developed and its analytical performance characteristics have been determined by [facility]. It has not been cleared or approved by the FDA. This assay has been validated pursuant to the CLIA regulations and is used for clinical purposes. See Note 1 Note 1 This test was developed and its analytical performance characteristics have been determined by [facility]. It has not been cleared or approved by the FDA. This assay has been validated pursuant to the CLIA regulations and is used for clinical purposes. CARDIO IQ(R) LIPID PANEL WIT H REFLEX TO DIRECT LDL Reviewed date:05/30/2024 08:43:51 AM Interpretation: Performing Lab:[facility]-[address], [address], [id number] Karina Porter Notes/Report: Received Date: [id number] 0; 0; 0; 0; 0; 0; 0; 0; 0; 0; 0; 0 FASTING:YES PATIENT REFUSED SOME TESTING; PATIENT ENCOURAGED FASTING: YES CHOLESTEROL, TOTAL 254 <200 mg/dL HDL CHOLESTEROL 45 >39 mg/dL TRIGLYCERIDES 119 <150 mg/dL LDL-CHOLESTEROL 184 <100 mg/dL (calc) Desirable range <100 mg/dL for primary prevention; <70 mg/dL for patients with CHD or diabetic patients with >= 2 CHD risk factors. LDL-C is now calculated using the Rc-Escalante calculation, which is a validated novel method providing better accuracy than the Friedewald equation in the estimation of LDL-C. Rc SS et al. KATELYN. 2013;310(19): 9250-1614 (http://education.[employer].com/faq/DJK502) LDL-C is now calculated using the Rc-Escalante calculation, which is a validated novel method providing better accuracy than the Friedewald equation in the estimation of LDL-C. Rc SS et al. KATELYN. 2013;310(19): 8238-2382 (http://education.[employer].com/faq/KED138) CHOL/HDLC RATIO 5.6 <5.0 calc NON HDL CHOLESTEROL 209 <130 mg/dL (calc) For patients with diabetes plus 1 major ASCVD risk factor, treating to a non-HDL-C goal of <100 mg/dL (LDL-C of <70 mg/dL) is considered a therapeutic option. CARDIO IQ(TM)HOMOCYSTEINE CA RDIOVASCULAR Reviewed date:05/30/2024 08:43:51 AM Interpretation: Performing Lab:Cheng, [facility] [address], [address], [id number] Karina Porter Notes/Report: Received Date: 0; 0; 0; 0; 0; 0; 0; 0; 0; 0; 0; 0 FASTING:YES PATIENT REFUSED SOME TESTING; PATIENT ENCOURAGED FASTING: YES HOMOCYSTEINE 11.0 <11.4 umol/L Homocysteine is increased by functional deficiency of folate or vitamin B12. Testing for methylmalonic acid differentiates between these deficiencies. Other causes of increased homocysteine include renal failure, folate antagonists such as methotrexate and phenytoin, and exposure to nitrous oxide. Sandor Torres, et al. Jael Freelance Programmer/App Developer Med. 1999;131(5):331-9. Homocysteine is increased by functional deficiency of folate or vitamin B12. Testing for methylmalonic acid differentiates between these deficiencies. Other causes of increased homocysteine include renal failure, folate antagonists such as methotrexate and phenytoin, and exposure to nitrous oxide. Seljairo Torres, et al., Jael Freelance Programmer/App Developer Med. 1999;131(5):331-9. CARDIO IQ(TM) APOLIPOPROTEIN B Reviewed date:05/30/2024 08:43:51 AM Interpretation: Performing Lab:Cheng, [facility] [address], [id number] Karina Porter Notes/Report: Received Date: 0; 0; 0; 0; 0; 0; 0; 0; 0; 0; 0; 0 FASTING:YES PATIENT REFUSED SOME TESTING; PATIENT ENCOURAGED FASTING: YES APOLIPOPROTEIN B 143 <90 mg/dL Risk: Optimal <90 mg/dL; Moderate 90-119 mg/dL; High >= 120 mg/dL; Cardiovascular event risk category cut points (optimal, moderate, high) are based on National Lipid Association recommendations- Nelson TA et al. J of Clin Lipid. 2015; 9: 129-169 and Anabela BROUSSARD et al. Endocr Pract. 2017;23(Suppl 2):1-87. CARDIO IQ(TM) HEMOGLOBIN A1c Reviewed date:05/30/2024 08:43:51 AM Interpretation: Performing Lab:[facility], [facility] [facility], [address], [id number] Karina Porter Notes/Report: Received Date: 0; 0; 0; 0; 0; 0; 0; 0; 0; 0; 0; 0 FASTING:YES PATIENT REFUSED SOME TESTING; PATIENT ENCOURAGED FASTING: YES HEMOGLOBIN A1c 6.0 <5.7 % For someone without known diabetes, a hemoglobin A1c value between 5.7% and 6.4% is consistent with prediabetes and should be confirmed with a follow-up test. For someone with known diabetes, a value <7% indicates that their diabetes is well controlled. A1c targets should be individualized based on duration of diabetes, age, co-morbid conditions and other considerations. This assay result is consistent with an increased risk of diabetes. Currently, no consensus exists regarding use of hemoglobin A1c for diagnosis of diabetes in children. This test was performed on the Jennifer lam c503 platform. Effective 05/16/2023, a change in test platforms from the [employer] Builder to the Jennifer lam c503 may have shifted HbA1c results compared to historical results. Based on laboratory validation testing conducted at [facility], the Jennifer platform relative to the Knox platform had an average increase in HbA1c value of <=0.3%. This difference is within accepted variability established by the National Glycohemoglobin Standardization Program. Note that not all individuals will have had a shift in their results and direct comparisons between historical and current results for testing conducted on different platforms is not recommended. CARDIO IQ(TM) HS CRP Reviewed date:05/30/2024 08:43:51 AM Interpretation: Performing Lab:[facility] [facility], [address], [id number] Karina Porter Notes/Report: Received Date: 0; 0; 0; 0; 0; 0; 0; 0; 0; 0; 0; 0 FASTING:YES PATIENT REFUSED SOME TESTING; PATIENT ENCOURAGED FASTING: YES HS CRP 0.9 <1.0 mg/L Reference Range: Optimal <1.0 mg/L, according to Anabela BROUSSARD et al. Endocr Pract.2017;23(Suppl 2):1-87. The AHA/CDC Guidelines recommend hs-CRP ranges for identifying Relative Cardiovascular Risk in patients ages >17 years: <1.0 mg/L Lower Relative Cardiovascular Risk; 1.0-3.0 mg/L Average Relative Cardiovascular Risk; 3.1-10.0 mg/L Higher Relative Cardiovascular Risk. If result is between 3.1 and 10.0 mg/L, consider retesting in 1-2 weeks to exclude a benign transient elevation secondary to infection or inflammation from the baseline CRP value. Persistent elevations of >10.0 mg/L upon retesting may be associated with infection and inflammation. The AHA/CDC recommendations are based on Jody Mathis, Tolu MAYES, et al. Markers of inflammation and cardiovascular disease: application to clinical and public health practice: A statement for healthcare professionals from the Centers for Disease Control and Prevention and the [place] Heart Association. Circulation 2003; 107(3): 499-511. For ages >17 Years: hs-CRP mg/L Risk According to AHA/CDC Guidelines <1.0 Lower relative cardiovascular risk. 1.0-3.0 Average relative cardiovascular risk. 3.1-10.0 Higher relative cardiovascular risk. Consider retesting in 1 to 2 weeks to exclude a benign transient elevation in the baseline CRP value secondary to infection or inflammation. >10.0 Persistent elevation, upon retesting, may be associated with infection and inflammation. Jody Mathis, Tolu MAYES, et al. Markers of inflammation and cardiovascular disease: application to clinical and public health practice: A statement for healthcare professionals from the Centers for Disease Control and Prevention and the [place] Heart Association. Circulation 2003; 107(3): 499-511. CARDIO IQ(TM) LIPOPROTEIN (a ) Reviewed date:05/30/2024 08:43:50 AM Interpretation: Performing Lab:[facility], [facility] [place] [address], [address], [id number] Karina Porter Notes/Report: Received Date: [id number] 0; 0; 0; 0; 0; 0; 0; 0; 0; 0; 0; 0 FASTING:YES PATIENT REFUSED SOME TESTING; PATIENT ENCOURAGED FASTING: YES LIPOPROTEIN (a) <10 <75 nmol/L Verified by repeat analysis. Risk: Optimal <75 nmol/L; Moderate 75-125 nmol/L; High >125 nmol/L. Cardiovascular event risk category cut points (optimal, moderate, high) are based on Nico Carvalho [facility] 2017;69:692-711. 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 confirmed Problem Mixed hyperlipidemia (788522984) Mixed hyperlipidemia (E78.2) Active confirmed Problem Tension-type headach e (438680873) Tension-type headache, unspecified, not intractable (G44.209) Active confirmed Problem Chronic sinusitis (12630208) Chronic sinusitis, unspecified (J32.9) Active confirmed Problem Irritable bowel syndrome with diarrhea (623415578) Irritable bowel syndrome with diarrhea (K58.0) Active confirmed Problem Intestinal malabsorption (348430781) Other intestinal malabsorption (K90.89) Active confirmed Problem C-reactive protein abnormal (678289831) Elevated C-reactive protein (CRP) (R79.82) Active confirmed Encounters Encounter Location Date Provider Diagnosis [address] [id number] 08/21/2023 Donta Olivas Non-celiac gluten sensitivity K90.41 ; Candidal enteritis B37.82 ; Dietary counseling and surveillance Z71.3 ; Person consulting for explanation of examination or test findings Z71.2 and Other adverse food reactions, not elsewhere classified, sequela T78.1XXS [address] [id number] 11/20/2023 Donta Olivas Other fatigue R53.83 ; Decreased libido R68.82 ; Other symptoms and signs involving cognitive functions and awareness R41.89 and Dietary counseling and surveillance Z71.[address] [id number] 01/30/2024 Donta Olivas Abdominal distension (gaseous) R14.0 ; Irritable bowel syndrome with diarrhea K58.0 ; Exercise counseling Z71.82 ; Person consulting for explanation of examination or test findings Z71.2 ; Dietary counseling and surveillance Z71.3 ; Other intestinal malabsorption K90.89 and Other specified functional intestinal disorders K59.[address] [id number] 02/22/2024 Shirley Cardozo Abdominal distension (gaseous) R14.0 ; Irritable bowel syndrome with diarrhea K58.0 ; Other intestinal malabsorption K90.89 and Other specified functional intestinal disorders K59.[address] [id number] 05/14/2024 Donta Olivas Impaired fasting glucose R73.01 ; Elevation of levels of liver transaminase levels R74.01 ; Person consulting for explanation of examination or test findings Z71.2 and Dietary counseling and surveillance Z71.[address] [id number] 04/17/2024 Donta Olivas Homocystinuria E72.1 1 ; Mixed hyperlipidemia E78.2 ; Other fatigue R53.83 ; Elevated blood-pressure reading, without diagnosis of hypertension R03.0 ; Candidal enteritis B37.82 ; Unspecified abnormal finding in specimens from other organs, systems and tissues R89.9 ; Abnormal level of hormones in specimens from other organs, systems and tissues R89.1 and Testicular hypofunction E29.[address] [id number] 05/23/2024 Donta Olivas Candidal enteritis B37.[address] [id number] 04/19/2024 Donta Olivas [address] [id number] 06/05/2024 Donta Olivas Assessments Encounter Date Diagnosis (ICD Code) Assessment Notes Treatment Notes Treatment Clinical Notes Section Notes 08/21/2023 Candidal enteritis (ICD-10 - B37.82) This is a 37 yo male pt presents in-office for ROF of recent labs. Results reviewed and discussed during the visit. Bloating resolved since eliminating wheat/gluten. Feels overall a lot stove tender. Has solid stools now. Celiac Disease Panel: Tissue transglutaminase less than 0.1 IgA 389 H Sam Immune Complex: 1.61 H Gluten Ig.3 mcg/mL H Wheat Ig.9 mcg/mL H Discussed food sensitivities to gluten and wheat contributing to bloating, GI sxs, and inflammation. Pt to continue avoidance. Discussed and recommended resuming treatment of sam. Pt to initiate nystatin. Recommended undecylenic acid for anti-fungal and biofilm disrupting actions. Discussed hypochlorhydria as possible predisposing factors for sam overgrowth via high pH, and etiology of GI sxs. Discussed and educated pt on HCl challenge method of assessing stomach acid status. 08/21/2023 Non-celiac gluten sensitivity (ICD-10 - K90.41) This is a 37 yo male pt presents in-office for ROF of recent labs. Results reviewed and discussed during the visit. Bloating resolved since eliminating wheat/gluten. Feels overall a lot stove tender. Has solid stools now. Celiac Disease Panel: Tissue transglutaminase less than 0.1 IgA 389 H Sam Immune Complex: 1.61 H Gluten Ig.3 mcg/mL H Wheat Ig.9 mcg/mL H Discussed food sensitivities to gluten and wheat contributing to bloating, GI sxs, and inflammation. Pt to continue avoidance. Discussed and recommended resuming treatment of sam. Pt to initiate nystatin. Recommended undecylenic acid for anti-fungal and biofilm disrupting actions. Discussed hypochlorhydria as possible predisposing factors for sam overgrowth via high pH, and etiology of [...] GI sxs. Pt also previously attempted addressing sam overgrowth. Labs show low-normal testosterone levels. Discussed [...] GI sxs. Pt also previously attempted addressing sam overgrowth. Labs show low-normal testosterone levels. Discussed [...] of SIBO. Correlated with clinical presentation at [facility]. 02/22/2024 Abdominal distension (gaseous) (ICD-10 - R14.0) Max levels: Methane (through all) -7 Hydrogen (through 120m) -19 Results not suggestive of SIBO. Correlated with clinical presentation at [facility]. 04/17/2024 Homocystinuria (ICD-10 - E72.11) 05/14/2024 Impaired fasting glucose (ICD-10 - R73.01) This is a 38 yo male pt presenting in-office for ROF of recent labs. Results reviewed and discussed during the visit. Labs drawn today shows ALT elevated, AST elevated, fasting glucose elevated. Had a migraine 1 day ago, vomitted up all his food. Neck tension. Frontal. RUQ pain. Did carnivore diet for 1 month. Feels better gluten free. Gluten flares up sxs. Discussed stress from travel likely triggered migaine, nausea, vomitting. This extended fasting, loss of hydration via vomitting, and use of NSAIDs likely caused elevated liver enzymes. Impaired fasting glucose likely d/t fasting over 12 hours likely led to liberation of glucose from storage form. Discussed nutrition in-depth during the visit. Discussed and recommended reducing processed foods, sugars, and inflammatory oils. Recommended increasing whole, organic foods, emphasized vegetables and increased water intake. Recommended increasing dietary fiber, protein, and health fat. Recommended macro combining macros for blood sugar regulation. Discussed and recommended low glycemic diet for blood sugar health. Discussed carnivore diet likely put pt into ketosis, caused liberation of free fatty acids, and/or had anti-inflammatory effect d/t food elimination, but may have confered burden on pancreas and liver, gallbladder to upregulate production of lipase, elastase, bile. This may have contributed to RUQ pain. 05/14/2024 Elevation of levels of liver transaminase levels (ICD-10 - R74.01) This is a 38 yo male pt presenting in-office for ROF of recent labs. Results reviewed and discussed during the visit. Labs drawn today shows ALT elevated, AST elevated, fasting glucose elevated. Had a migraine 1 day ago, vomitted up all his food. Neck tension. Frontal. RUQ pain. Did carnivore diet for 1 month. Feels better gluten free. Gluten flares up sxs. Discussed stress from travel likely triggered migaine, nausea, vomitting. This extended fasting, loss of hydration via vomitting, and use of NSAIDs likely caused elevated liver enzymes. Impaired fasting glucose likely d/t fasting over 12 hours likely led to liberation of glucose from storage form. Discussed nutrition in-depth during the visit. Discussed and recommended reducing processed foods, sugars, and inflammatory oils. Recommended increasing whole, organic foods, emphasized vegetables and increased water intake. Recommended increasing dietary fiber, protein, and health fat. Recommended macro combining macros for blood sugar regulation. Discussed and recommended low glycemic diet for blood sugar health. Discussed carnivore diet likely put pt into ketosis, caused liberation of free fatty acids, and/or had anti-inflammatory effect d/t food elimination, but may have confered burden on pancreas and liver, gallbladder to upregulate production of lipase, elastase, bile. This may have contributed to RUQ pain. 05/23/2024 Candidal enteritis (ICD-10 - B37.82) 05/14/2024 Person consulting for explanation of examination or test findings (ICD-10 - Z71.2) This is a 38 yo male pt presenting in-office for ROF of recent labs. Results reviewed and discussed during the visit. Labs drawn today shows ALT elevated, AST elevated, fasting glucose elevated. Had a migraine 1 day ago, vomitted up all his food. Neck tension. Frontal. RUQ pain. Did carnivore diet for 1 month. Feels better gluten free. Gluten flares up sxs. Discussed stress from travel likely triggered migaine, nausea, vomitting. This extended fasting, loss of hydration via vomitting, and use of NSAIDs likely caused elevated liver enzymes. Impaired fasting glucose likely d/t fasting over 12 hours likely led to liberation of glucose from storage form. Discussed nutrition in-depth during the visit. Discussed and recommended reducing processed foods, sugars, and inflammatory oils. Recommended increasing whole, organic foods, emphasized vegetables and increased water intake. Recommended increasing dietary fiber, protein, and health fat. Recommended macro combining macros for blood sugar regulation. Discussed and recommended low glycemic diet for blood sugar health. Discussed carnivore diet likely put pt into ketosis, caused liberation of free fatty acids, and/or had anti-inflammatory effect d/t food elimination, but may have confered burden on pancreas and liver, gallbladder to upregulate production of lipase, elastase, bile. This may have contributed to RUQ pain. 08/21/2023 Dietary counseling and surveillance (ICD-10 - Z71.3) This is a 37 yo male pt presents in-office for ROF of recent labs. Results reviewed and discussed during the visit. Bloating resolved since eliminating wheat/gluten. Feels overall a lot stove tender. Has solid stools now. Celiac Disease Panel: Tissue transglutaminase less than 0.1 IgA 389 H Sam Immune Complex: 1.61 H Gluten Ig.3 mcg/mL H Wheat Ig.9 mcg/mL H Discussed food sensitivities to gluten and wheat contributing to bloating, GI sxs, and inflammation. Pt to continue avoidance. Discussed and recommended resuming treatment of sam. Pt to initiate nystatin. Recommended undecylenic acid for anti-fungal and biofilm disrupting actions. Discussed hypochlorhydria as possible predisposing factors for sam overgrowth via high pH, and etiology of GI sxs. Discussed and educated pt on HCl challenge method of assessing stomach acid status. 04/17/2024 Mixed hyperlipidemia (ICD-10 - E78.2) 02/22/2024 Other intestinal malabsorption (ICD-10 - K90.89) [...] GI sxs. Pt also previously attempted addressing sam overgrowth. Labs show low-normal testosterone levels. Discussed [...] initiating men's as nutrient support post-COVID. 11/20/2023 Dietary counseling and surveillance (ICD-10 - [...] since eliminating wheat/gluten. Feels overall a lot stove tender. Has solid stools now. Celiac Disease Panel: Tissue transglutaminase less than 0.1 IgA 389 H Sam Immune Complex: 1.61 H Gluten Ig.3 mcg/mL H Wheat Ig.9 mcg/mL H Discussed food sensitivities to gluten and wheat contributing to bloating, GI sxs, and inflammation. Pt to continue avoidance. Discussed and recommended resuming treatment of sam. Pt to initiate nystatin. Recommended undecylenic acid for anti-fungal and biofilm disrupting actions. Discussed hypochlorhydria as possible predisposing factors for sam overgrowth via high pH, and etiology of [...] GI sxs. Pt also previously attempted addressing sam overgrowth. Labs show low-normal testosterone levels. Discussed [...] SIBO. Correlated with clinical presentation at ROF. 05/14/2024 Dietary counseling and surveillance (ICD-10 - Z71.3) This is a 38 yo male pt presenting in-office for ROF of recent labs. Results reviewed and discussed during the visit. Labs drawn today shows ALT elevated, AST elevated, fasting glucose elevated. Had a migraine 1 day ago, vomitted up all his food. Neck tension. Frontal. RUQ pain. Did carnivore diet for 1 month. Feels better gluten free. Gluten flares up sxs. Discussed stress from travel likely triggered migaine, nausea, vomitting. This extended fasting, loss of hydration via vomitting, and use of NSAIDs likely caused elevated liver enzymes. Impaired fasting glucose likely d/t fasting over 12 hours likely led to liberation of glucose from storage form. Discussed nutrition in-depth during the visit. Discussed and recommended reducing processed foods, sugars, and inflammatory oils. Recommended increasing whole, organic foods, emphasized vegetables and increased water intake. Recommended increasing dietary fiber, protein, and health fat. Recommended macro combining macros for blood sugar regulation. Discussed and recommended low glycemic diet for blood sugar health. Discussed carnivore diet likely put pt into ketosis, caused liberation of free fatty acids, and/or had anti-inflammatory effect d/t food elimination, but may have confered burden on pancreas and liver, gallbladder to upregulate production of lipase, elastase, bile. This may have contributed to RUQ pain. 04/17/2024 Elevated blood-pressure reading, without diagnosis of [...] GI sxs. Pt also previously attempted addressing sam overgrowth. Labs show low-normal testosterone levels. Discussed [...] since eliminating wheat/gluten. Feels overall a lot stove tender. Has solid stools now. Celiac Disease Panel: Tissue transglutaminase less than 0.1 IgA 389 H Sam Immune Complex: 1.61 H Gluten Ig.3 mcg/mL H Wheat Ig.9 mcg/mL H Discussed food sensitivities to gluten and wheat contributing to bloating, GI sxs, and inflammation. Pt to continue avoidance. Discussed and recommended resuming treatment of sam. Pt to initiate nystatin. Recommended undecylenic acid for anti-fungal and biofilm disrupting actions. Discussed hypochlorhydria as possible predisposing factors for sam overgrowth via high pH, and etiology of GI sxs. Discussed and educated pt on HCl challenge method of assessing stomach acid status. 01/30/2024 Other intestinal malabsorption (ICD-10 - K90.89) [...] GI sxs. Pt also previously attempted addressing sam overgrowth. Labs show low-normal testosterone levels. Discussed [...] GI sxs. Pt also previously attempted addressing sam overgrowth. Labs show low-normal testosterone levels. Discussed [...] assess need for stomach pH support. 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 Feels overall a lot stove tender. Has solid stools now. Celiac Disease Panel: Tissue transglutaminase less than 0.1 IgA 389 H Sam Immune Complex: 1.61 H Gluten Ig.3 mcg/mL H Wheat Ig.9 mcg/mL H Discussed food sensitivities to gluten and wheat contributing to bloating, GI sxs, and inflammation. Pt to continue avoidance. Discussed and recommended resuming treatment of sam. Pt to initiate nystatin. Recommended undecylenic acid for anti-fungal and biofilm disrupting actions. Discussed hypochlorhydria as possible predisposing factors for sam overgrowth via high pH, and etiology of [...] GI sxs. Pt also previously attempted addressing sam overgrowth. Labs show low-normal testosterone levels. Discussed [...] to assess need for stomach pH support. 05/14/2024 Other Consent obtained. Time spent preparing to see the patient: 5 min Appointment Start time: Donta Olivas 05/14/2024 12:07:06 PM EST > End time: Donta Olivas 05/14/2024 12:43:01 PM EST > Post appointment time documenting clinical information in the medical record & care coordination: 5 min Total Time: 46 min performing a medically appropriate examination and/or evaluation counseling and educating the patient on etiology, results, and management of health concerns ordering supplementatio ns, tests, or procedures and explaining risks, benefits, and alternatives This is a 38 yo male pt presenting in-office for ROF of recent labs. Results reviewed and discussed during the visit. Labs drawn today shows ALT elevated, AST elevated, fasting glucose elevated. Had a migraine 1 day ago, vomitted up all his food. Neck tension. Frontal. RUQ pain. Did carnivore diet for 1 month. Feels better gluten free. Gluten flares up sxs. Discussed stress from travel likely triggered migaine, nausea, vomitting. This extended fasting, loss of hydration via vomitting, and use of NSAIDs likely caused elevated liver enzymes. Impaired fasting glucose likely d/t fasting over 12 hours likely led to liberation of glucose from storage form. Discussed nutrition in-depth during the visit. Discussed and recommended reducing processed foods, sugars, and inflammatory oils. Recommended increasing whole, organic foods, emphasized vegetables and increased water intake. Recommended increasing dietary fiber, protein, and health fat. Recommended macro combining macros for blood sugar regulation. Discussed and recommended low glycemic diet for blood sugar health. Discussed carnivore diet likely put pt into ketosis, caused liberation of free fatty acids, and/or had anti-inflammatory effect d/t food elimination, but may have confered burden on pancreas and liver, gallbladder to upregulate production of lipase, elastase, bile. This may have contributed to RUQ pain. Plan Of Treatment Pending Test Test Name Order Date IRON, TIBC AND FERRITIN PANEL 07/27/2021 LIPID PANEL 07/27/2021 FSH AND LH 09/29/2021 THYROID PEROXIDASE AND THYROGLOBULIN ANT IBODIES 09/29/2021 TESTOSTERONE, TOTAL AND FREE AND SEX HOR LINDA BINDING GLOBULIN 03/28/2022 TESTOSTERONE, TOTAL AND FREE AND SEX HOR LINDA BINDING GLOBULIN 11/20/2023 TESTOSTERONE, TOTAL AND FREE AND SEX HOR LINDA BINDING GLOBULIN 04/17/2024 TESTOSTERONE, TOTAL AND FREE AND SEX HOR LINDA BINDING GLOBULIN 07/27/2021 ESTROGENS, FRACTIONATED, LC/MS/MS 2021 COMPREHENSIVE METABOLIC PANEL 07/27/2021 COMPREHENSIVE METABOLIC PANEL 04/17/2024 LD 07/27/2021 GGT 07/27/2021 URIC ACID 07/27/2021 CBC (INCLUDES DIFF/PLT) 07/27/2021 CBC (INCLUDES DIFF/PLT) 04/17/2024 ANTHONY IFA SCREEN W/REFL TO TITER AND PATTE RN, IFA 07/27/2021 HS CRP 07/27/2021 CARDIO IQ(TM) HS CRP 03/28/2022 CARDIO IQ(TM)HOMOCYSTEINE CARDIOVASCULAR 03/28/2022 HOMOCYSTEINE, CARDIOVASCULAR 11/20/2023 [...] 25 HYDROXY, LC/ MS/MS 03/28/2022 TRYPTASE 07/27/2021 SAM ALBICANS AB (IGG,IGA,IGM) 2021 SAM ALBICANS AB (IGG,IGA,IGM) 2022 SAM ALBICANS AB (IGG,IGA,IGM) 2023 SELENIUM, RBC 07/27/2021 METHYLENETETRAHYDROFOLATE REDUCTASE (MTH FR), DNA 07/27/2021 ALLERGEN GLUTEN IGG 06/12/2023 OMEGA 3 AND 6 FATTY ACIDS, PLASMA 2021 VITAMIN D 25 OH 11/20/2023 LACTULOSE BREATH TEST 12/26/2022 LACTULOSE BREATH TEST 01/30/2024 CARDIO IQ(R) LIPID PANEL WITH REFLEX TO DIRECT LDL 03/28/2022 CELIAC DISEASE DIAGNOSTIC PANEL 06/12/19 24 SAM IMMUNE COMPLEX 06/12/2023 SAM IMMUNE COMPLEX 04/17/2024 SAM IMMUNE COMPLEX 05/23/2024 SAM IMMUNE COMPLEX 11/20/2023 SAM IMMUNE COMPLEX 03/28/2022 SAM IMMUNE COMPLEX 07/27/2021 TICK BORNE DISEASE, ANTIBODY PANEL 09/29 CORTISOL, LC/MS, SALIVA, 3 SAMPLES 09/29 TMAO (TRIMETHYLAMINE N OXIDE) 04/17/2024 GASTROINTESTINAL PATHOGEN PANEL, REAL TI ME PCR 01/30/2024 Next Appt Details Provider Name:Donta Downs [facility], 08/12/2024 03:30:00 PM, [address] [facility], [place], [place], [phone], Insurance Providers Payer Name Payer Address Payer Phone Subscriber Number Group Number Insured Name Patient Relationship to Insured Coverage Start Date Coverage End Date [facility] [address] [place], [place] [phone] [id number] Pacheco Bonner Self - patient is the insured Medical (General) History Surgical History Surgery Date(Month/Year) Tendon repair surgery 07/01/2020
--- OUTSIDE RECORDS SUMMARY | 2024-06-27 17:23 | XMS_ITS ---
Author Organization [facility] Address [address] [place] [phone] Care Team Providers Care Neonatologist Name Role Phone Donta Olivas [phone] REASON FOR VISIT Lab error Encounters Encounter Location Date Provider Diagnosis [address] [id number] 05/23/2024 Donta Olivas Candidal enteritis B37.82 Assessments Encounter Date Diagnosis (ICD Code) Assessment Notes Treatment Notes Treatment Clinical Notes Section Notes 05/23/2024 Candidal enteritis (ICD-10 - B37.82) Plan Of Treatment Pending Test Test Name Order Date CHERYL IMMUNE COMPLEX 05/23/2024 Next Appt Details [facility] 03:30:00 PM, [address] [place] [address], [phone], Progress Notes * Pacheco MORRISON B:1985 (38 yo M)Acc No.[id number]:05/23/2024 Patient:?Pacheco MORRISON :1985???Age:38 Y???Sex:Male Address:[address] [place] [address] Subjective: * Chief Complaints: * ???Lab error * Medical History:? * Surgical History:? * Hospitalization/Major Diagno stic Procedure:? * Medications:? Objective: * Vitals:? * Physical Examination:? Assessment: * Assessment: 1.?Candidal enteritis - B37. 82??? Plan: * Treatment: * Procedure Codes:? * true * Date:? Generated for Zeferino bingham/Lawrence/Milton on:?06/27/2024 05:23 PM EDT
--- OUTSIDE RECORDS SUMMARY | 2024-06-27 17:23 | XMS_ITS ---
Author Organization [facility] Address [address] [place] [phone] Care Team Providers Care Escort Service Attendant Name Role Phone GreggvaleriadiDonta awan Unavailable [phone] Allergies No Known Allergies REASON FOR VISIT ROF labs Encounters Encounter Location Date Provider Diagnosis [address] [id number] 05/14/2024 Donta Olivas Impaired fasting glucose R73.01 ; Elevation of levels of liver transaminase levels R74.01 ; Person consulting for explanation of examination or test findings Z71.2 and Dietary counseling and surveillance Z71.3 Assessments Encounter Date Diagnosis (ICD Code) Assessment Notes Treatment Notes Treatment Clinical Notes Section Notes 05/14/2024 Impaired fasting glucose (ICD-10 - R73.01) [...] liberation of free fatty acids, and/or had anti-inflammato ry effect d/t food elimination, but may have [...] liberation of free fatty acids, and/or had anti-inflammato ry effect d/t food elimination, but may have confered burden on pancreas and liver, gallbladder to upregulate production of lipase, elastase, bile. This may have contributed to RUQ pain. 05/14/2024 Person consulting for explanation of examination [...] liberation of free fatty acids, and/or had anti-inflammato ry effect d/t food elimination, but may have confered burden on pancreas and liver, gallbladder to upregulate production of lipase, elastase, bile. This may have contributed to RUQ pain. 05/14/2024 Dietary counseling and surveillance (ICD-10 - [...] liberation of free fatty acids, and/or had anti-inflammato ry effect d/t food elimination, but may have confered burden on pancreas and liver, gallbladder to upregulate production of lipase, elastase, bile. This may have contributed to RUQ pain. 05/14/2024 Other Consent obtained. Time spent preparing [...] results, and management of health concerns ordering supplementation s, tests, or procedures and explaining risks, benefits, [...] liberation of free fatty acids, and/or had anti-inflammato ry effect d/t food elimination, but may have confered burden on pancreas and liver, gallbladder to upregulate production of lipase, elastase, bile. This may have contributed to RUQ pain. Plan Of Treatment Next Appt Details Follow Up: 2 Months, Reason: ROF labs [facility] 08/12/2024 03:30:00 PM, [address] [place] [address], [phone], Progress Notes * Pacheco MORRISON B:1985 (38 yo M)Acc No.[id number]:05/14/2024 Progress Notes Patient:?Pacheco MORRISON Provider:?Donta Olivas ND :1985???Age:38 Y???Sex:Male Toan e:05/14/2024 Address:[address] [place] [address] Subjective: * Chief Complaints: * ???ROF labs * HPI: ???CC1:? CC// ROF labs ___ 05/14/2024 Donta Olivas 05/14/2024 12:07:06 PM EST > Donta Olivas 05/14/2024 12:43:01 PM EST > This pt presents in-office for ROF of recent labs. Results reviewed and discussed during the visit. Labs drawn today shows ALT elevated, AST elevated, fasting glucose elevated. Had a migraine 1 day ago, vomitted up all his food. Neck tension. Frontal. RUQ pain. Did carnivore diet for 1 month. Feels better gluten free. Gluten flares up sxs. * ROS:?General/Constitutional:?Patient denies?fever , chills?.?Patient complaining of?headache.?Respiratory:?Patient denies?shortness of breath , cough.?Cardiovascular:?Patient denies?chest pain, fluid accumulation in the legs.?Gastrointestinal:?Patient denies?rectal bleeding, change in stools.?Patient complaining of?abdominal pain,abdominal bloating/cramping.?Neurologic:?Patient denies?difficulty speaking , loss of strength.? * Medical History:? * Surgical History:?Tendon rep air surgery 07/01/2020 * Hospitalization/Major Diagno stic Procedure:?No Hospitalization History. * Family History:?No Family Hi story documented..? * Social History:?tobacco: denies current or past use etoh: denies. * Medications:?None * Allergies:?N.K.D.A.no[Allerg ies Verified] Objective: * Vitals:? * Examination: ???General Examination: [...] intact, gait normal.?PSYCH:?alert, oriented.? Assessment: * Assessment: 1.?Impaired fasting glucose - R73.01 (Primary)???2.?Elevation of levels of liver transaminase levels - R74.01???3.?Person consulting for explanation of examination or test findings - Z71.2???4.?Dietary counseling and surveillance - Z71.3??? This is a 38 yo male pt pres enting in-office for ROF of recent labs. Results [...] This may have contributed to RUQ pain. Plan: * Treatment: * Procedure Codes:? * Preventive Medicine:?Diet for Blood Sugar and Overall Health: - Emphasize Low Glycemic Load/ Low Glycemic Index foods... these foods are higher in fiber, protein, and healthy fat. And the grains are going to digest more like a vegetable than a grain... more of a complex carb than a simple carb. - Look for Low Net Carbs... Total Carbs minus (-) Fiber = Net Carbs. The mederos to Low Net Carbs is higher fiber. Looking at a food at a glance, if you see the Total Carbs is a lot higher compared to the fiber/ the fiber content is low, this is going to have a higher net carb. By contrast, if the fiber content is higher, it will produce a lower net carb. Fiber does not digest, and does not raise blood sugar, rather it balances it. - Another thing to look at is the Added Sugar. Look ideally for Low Total Sugar, and definitely Low Added Sugars. When comparing Total Sugar to Added Sugar, if most of the sugar content is coming from the Added Sugars, this means they are adding a lot of sugar. By contrast, if there are very low Added Sugars compared to the Total Sugar, then most of the sugar is naturally occurring in this food, which is better than added. Sugars are simple... they are small, simple molecules that break down fast. The body makes short work of breaking down sugar, which raises/ spikes your blood sugar quickly, which then usually leads to a crash. Starches AKA Complex Carbs digest slower - they are bigger, longer molecules than sugar, and take the body more time to break down, so they raise your blood sugar more slowly and steadily over time. Total Carbs minus (-) Fiber minus (-) Total Sugar = Starches/ Complex Carbs. You want the total carbs to be more so made up of Fiber and Complex Carbs, not sugar. Put another way, starches should outweigh sugar in the make-up of the total carbs. - Protein, fiber, and healthy fat help balance out the effect of carbs on your blood sugar. Protein and fat are bigger, more complex molecules that sugar, and take the body longer to break down. Make sure there is a good amount of protein and fiber compared to carbs. If it's mostly carbs and barely any protein or fiber, this will more likely spike your blood sugar. - Pair fiber with a food to balance the effect of the carbs, either with fiber supplement or with a food high in fiber. Snack Ideas: Look for snacks with higher protein or fiber. - Epic Bars made from cleanly sourced meat, high in protein. Made from beef, turkey, salmon, chicken, etc. - Chomps Meat Sticks, made from cleanly sourced grassfed beef, turkey, etc. No sugar. - IQ Bars, Mulga Bars, Perfect Bars?are plant-based protein bars with low carbs - low net carbs other otherwise. Good fiber content. ___ Supplements: Continue: - Adrenal Support by Vital Nutrients: Take 2 capsules first thing in the morning, within 1 hour of waking, ideally on empty stomach if well tolerated. Can take a second dose within 5 hours of waking, ie between 10am-12 noon. - BCQ by Vital Nutrients: Take 2 capsules 2-3x daily to reduce inflammation and provide anti-oxidant support. - Men's . - Undecylenic Acid by Ida: Take 3-5 softgels 3x daily, away from food. - Homocysteine Nutrients by Seeking Health: Take 1 daily to lower homocysteine. [...] stress, cardiovascular health, and blood pressure. - Means-3. - Vitamin D3 + K2. https://us.Dunamu.Compassoft/welcome/cnhp ___ HCL challenge test (don't do this [...] help, can continue with... - Betaine HCl (eBuddy)- get this supplement and stay at the highest dose you did not experience burning, or at the full 4 tablet dose if no burning was experienced to support stomach acid - If you develop any burning, back down on the dosage - can use with bigger meals, a smaller amount can be used with smaller meals if this affects you negatively. * Follow Up:?2 Months (Reason: ROF labs) * * Sign off status: Completed true * Provider:Rosalio Olivas ND Date:?06/2024 Generated for Zeferino bingham/Lawrence/Nomiitting on:?06/27/2024 05:23 PM EDT History and Physical Notes * Examination Category [...]
--- OUTSIDE RECORDS SUMMARY | 2024-06-27 17:23 | XMS_ITS ---
Author Organization [facility] Address [address] [place] [phone] Care Team Providers Care Performance Improvement Coordinator Name Role Phone Donta Olivas [phone] REASON FOR VISIT Rejected Labs Encounters Encounter Location Date Provider Diagnosis [address] [id number] 06/05/2024 Donta Olivas Plan Of Treatment Next Appt Details Provider Name:[facility], 08/12/2024 03:30:00 PM, [address] [place], [place], [phone], Progress Notes * Pacheco MORRISON B:1985 (38 yo M)Acc No.[id number]:06/05/2024 Patient:?Pacheco MORRISON :1985???Age:38 Y???Sex:Male Address:[address] [place] [address] * true * Date:? Generated for Printi ng/Lawrence/eTransmitting on:?06/27/2024 05:23 PM EDT
== END 2024-06-27 15:21 | disposition home or self-care (01) ==
LOC: HO.HMCH 14:22
PROVIDERS: PCP Internal Medicine; Visit Provider Internal Medicine
DX: J30.9 Allergic rhinitis, unspecified (principal)

== ENCOUNTER → 2024-06-27 14:22 | Outpatient (BNVA) | payer OTHER, SELFPAY | PROVIDERS: PCP Internal Medicine; Visit Provider Internal Medicine ==

== ENCOUNTER 2024-08-03 09:36 | Outpatient (REF) | payer OTHER, SELFPAY ==
[2024-08-03 09:49] LABS: MANUAL DIFF FLAG NO
[2024-08-03 10:26] LABS: Basophils Absolute Auto 0.1 X10*3/uL (0.0-0.2); Basophils Percent Auto 1.5 % (0-2); Eosinophils Absolute Auto 0.1 X10*3/uL (0.0-0.4); Eosinophils Percent Auto 2.4 % (0-4); Hemoglobin 15.5 g/dl (14.0-18.0); Imm Gran Abs Auto 0.01 X10*3/uL (0.00-0.03); Imm Gran Pct Auto 0.2 % (0.0-0.4); Lymphocytes Absolute Auto 2.4 X10*3/uL (1.2-4.9); Lymphocytes Percent Auto 44.1 % (20-40); Mean Corpuscular HGB Conc 33.7 g/dl (31.0-36.0); Mean Corpuscular Hemoglobin 27.2 pg (27.0-33.0); Mean Corpuscular Volume 80.7 fL (80.0-98.0); Mean Platelet Volume 9.8 fL (9.4-12.4); Monocytes Absolute Auto 0.6 X10*3/uL (0.1-1.2); Monocytes Percent Auto 11.8 % (2-11); Neutrophils Absolute Auto 2.2 x10*3/uL (2.0-8.3); Platelet Count 229 X10*3/uL (160-400); Red Cell Distribution Width 12.8 % (11.0-16.0); White Blood Count 5.4 X10*3/uL (4.8-10.8)
[2024-08-06 17:23] LABS: Lyme Abs Screen <0.90 index
[2024-08-15 10:21] LABS: A phagocytophilum IgG <1:64; A phagocytophilum IgM <1:20
[2024-08-15 10:23] LABS: Babesia duncani Ab IgG (WA1) <1:256
[2024-08-15 10:24] LABS: Babesia microti IgG <1:64
[2024-08-15 10:25] LABS: Babesia microti IgM <1:20
[2024-08-15 10:26] LABS: E chaffeensis IgG <1:64; E chaffeensis IgM <1:20
[2024-08-16 12:03] LABS: Lyme Ab Screen <0.90
== END 2024-08-03 09:37 | disposition home or self-care (01) ==
LOC: HO.LAB 09:36
PROVIDERS: PCP Internal Medicine; Visit Provider Naturopath
DX: M25.50 Pain in unspecified joint (principal); A69.20 Lyme disease, unspecified; R53.83 Other fatigue
CPT/HCPCS: 36415; 85025; 86617; 86618; 86666; 86753

== ENCOUNTER 2024-11-13 16:37 | Outpatient (REF) | payer OTHER, SELFPAY ==
--- OUTSIDE RECORDS SUMMARY | 2024-08-12 11:30 | XMS_ITS ---
Author Organization [facility] Address [address] [place], [place] [phone] Care Team Providers Care Transitional Care Liaison Name Role Phone Donta Olivas [phone] REASON FOR VISIT ROF labs Encounters Encounter Location Date Provider Diagnosis [address] [id number] 08/12/2024 Donta Olivas Plan Of Treatment Next Appt Details Provider Name:Donta Downs [facility], 12/23/2024 11:30:00 AM, [address] [facility], [address], [place], [address], Progress Notes * Pacheco MORRISON B:1985 (39 yo M)Acc No.[id number]:08/12/2024 Patient: Pacheco VILLA Provider: Gene Olivas ND :1985 A ge:38 Y S ex:Male Date:08/12/2024 Address:[address] [place], [place] [phone] Subjective: * Chief Complaints: * 1 . ROF labs. * Medical History: Objective: * Vitals: Assessment: Plan: * Treatment: * * Electronic signature of Wai Olivas ND on 11/13/2024 at 06:01 PM EDT Sign off status: Pending * Provider: Gene Olivas ND Date: 0 08/12/2024 Generated for Zeferino bingham/Lawrence/Nomiitting on: 0 11/13/2024 06:01 PM EDT
--- OUTSIDE RECORDS SUMMARY | 2024-10-14 11:00 | XMS_ITS ---
Author Organization [facility] Address [address] [place] [phone] Care Team Providers Care Hemodialysis Patient Care Specialist Name Role Phone Donta Olivas Unavailable [phone] Allergies No Known Allergies REASON FOR VISIT rof labs Medications Medication SIG (Take, Route, Fr equency, Duration) Notes Start Date End Date Status Fluconazole 100 MG 1 tablet Orally greta y; Duration: 30 days Unknown Encounters Encounter Location Date Provider Diagnosis [address] [place] [address] 10/14/2024 Donta Olivas Assessments Encounter Date Diagnosis [...] Of Treatment Next Appt Details [facility] 11:30:00 AM, 1 [facility], [address], [place], [address], Progress Notes * Pacheco MORRISON B:1985 (39 yo M)Acc No.[id number]:10/14/2024 Progress Notes Patient: Cornelia Pacheco GOLDSMITH Provider: Gene ginna KWAN Olivas :1985 A ge:39 Y S ex:Male Date:10/14/2024 Address:[address] [place] [address] Subjective: * Chief Complaints: * 1 . [...] turkey, etc. No sugar. - IQ Bars, [place] Bars, Perfect Bars a re plant-based protein [...] stress, cardiovascular health, and blood pressure. - [place]-3. - Vitamin D3 + K2. https://Swirl.H2Mob.Novomer/welcome/cnhp ___ HCL challenge test (don't do this [...] help, can continue with... - Betaine HCl ([employer])- get this supplement and stay at the [...] Pending * Provider: Gene Olivas ND Date: 10/14/2024 Generated for Zeferino bingham/Lawrence/Milton on: 11/13/2024 06:01 PM EDT History and Physical Notes * [...]
--- OUTSIDE RECORDS SUMMARY | 2024-11-13 18:02 | XMS_ITS | Patient Health Record ---
Author Organization [facility] Address [address] [place] [id number] Care Team Providers Care Internal Wholesaler Name Role Phone Donta Olivas Unavailable [phone] Shirley Cardozo DO Unavailable [phone] America Knowles Unavailable [phone] Allergies No Known Allergies Results Component Value Reference Range Notes SAM IMMUNE COMPLEX Reviewed date:08/09/2024 12:17:53 PM Interpretation: Performing Lab:[facility], [facility] [address], [place]yfc[place] Ofe Singh PHD,HCLD(ABB) Notes/Report: Received Date: [id number] 0 FASTING:NO FASTING: NO SAM IMMUNE COMPLEX 2.03 <0.90 Index Negative <0.90 Inconclusive > = 0.90 to < = 1.09 Positive > = 1.10 The performance characteristics of the listed assay was validated by [facility]. The [place] FDA has not approved or cleared this test. The results of this assay can be used for clinical diagnosis without FDA approval. [facility] is a CLIA certified, CAP accredited laboratory for performing high complexity assays such as this one. CARDIO IQ(R) INSULIN RESISTA NCE PANEL WITH SCORE Reviewed date:05/30/2024 08:43:51 AM Interpretation: Performing Lab:[facility], [facility],[address], [place] Conchis Kebede MD,PhD,STEVE Notes/Report: Received Date: 0; 0; 0; 0; 0; 0; 0; 0; 0; 0; 0; 0 FASTING:YES PATIENT REFUSED SOME TESTING; PATIENT ENCOURAGED FASTING: YES INSULIN, INTACT, LC/MS/MS 12 < OR = 16 uIU/m L Insulin concentration can be converted to pmol/L by applying the conversion factor: 1 uIU/mL = 5.97 pmol/L For additional information, please refer to http://[employer]/faq/RFQ350 (This link is being provided for informational/educational purposes only.) This test was developed and its analytical performance characteristics have been determined by [facility]. It has not been cleared or approved [...] for apparently healthy individuals. J Endocr Soc. 2018;2(9):9510-2941). For additional information, please refer to http://[employer]/faq/QRC904 (This link is being provided for informational/educational purposes only.) This test was developed and its analytical performance characteristics have been determined by [facility]. It has not been cleared or approved by the FDA. This assay has been validated pursuant to the CLIA regulations and is used for clinical purposes. Cardio IQ(R) Oxidized LDL Reviewed date:05/30/2024 08:43:51 AM Interpretation: Performing Lab:[facility] [place] [address], [address], [place]ghqfjnor[place] Karina Porter Notes/Report: Received Date: 0; 0; [...] (Reference: 1-Marycruz et al. KATELYN. 2008; 299: 6892-5913.) Cardio IQ (R) ADMA and SDMA Reviewed date:05/30/2024 08:43:51 AM Interpretation: Performing Lab:[facility], [address], [place]pkrhqn[place] Karina Porter Notes/Report: Received Date: [id number] 0; 0; 0; 0; 0; 0; 0; 0; 0; 0; 0; 0 FASTING:YES PATIENT REFUSED SOME TESTING; PATIENT ENCOURAGED FASTING: YES ADMA 104 <100 ng/mL This test was developed and its analytical performance characteristics have been determined by [facility]. It has not been cleared or approved [...] al. J Am Heart Assoc. 2015; 4: f536249). SDMA 81 73-135 ng/mL CARDIO IQ(R) LP PLA2 ACTIVIT Y Reviewed date:05/30/2024 08:43:51 AM Interpretation: Performing Lab:[facility], [facility]-[address], [facility] [address], OcwkqhznkJI[address] Karina Porter Notes/Report: Received Date: 0; 0; 0; 0; 0; 0; 0; 0; 0; 0; 0; 0 FASTING:YES PATIENT REFUSED SOME TESTING; PATIENT ENCOURAGED FASTING: YES LP PLA2 ACTIVITY 136 <124 nmol/min/mL Relative Risk: Optimal <=123 nmol/min/mL; High >123 nmol/min/mL. This test was developed and its analytical performance characteristics have been determined by [facility]. It has not been cleared or approved by the FDA. This assay has been validated pursuant to the CLIA regulations and is used for clinical purposes. See Note 1 Note 1 This test was developed and its analytical performance characteristics have been determined by [facility]. It has not been cleared or approved by the FDA. This assay has been validated pursuant to the CLIA regulations and is used for clinical purposes. CARDIO IQ(R) LIPID PANEL WIT H REFLEX TO DIRECT LDL Reviewed date:05/30/2024 08:43:51 AM Interpretation: Performing Lab:[facility] [address], [facility] [address], PikhxcqgmIP[address] Karina Porter Notes/Report: Received Date: 0; 0; [...] factors. LDL-C is now calculated using the Rc-Boris calculation, which is a validated novel method providing better accuracy than the Friedewald equation in the estimation of LDL-C. Rc WARREN et al. KATELYN. 2013;310(19): 9095-7808 (http://education.[employer].com/faq/ZXL480) LDL-C is now calculated using the Stacie calculation, which is a validated novel method providing better accuracy than the Friedewald equation in the estimation of LDL-C. Rc WARREN et al. KATELYN. 2013;310(19): 1908-8597 (http://education.[employer].com/faq/NWG459) CHOL/HDLC RATIO 5.6 <5.0 calc NON HDL CHOLESTEROL 209 <130 mg/dL (calc) For patients with diabetes plus 1 major ASCVD risk factor, treating to a non-HDL-C goal of <100 mg/dL (LDL-C of <70 mg/dL) is considered a therapeutic option. CARDIO IQ(TM)HOMOCYSTEINE CA RDIOVASCULAR Reviewed date:05/30/2024 08:43:51 AM Interpretation: Performing Lab:[facility], [facility] [address], [address], [place]em[place]gcw[place] Karina Porter Notes/Report: Received Date: [id number] 0; 0; 0; 0; 0; 0; 0; [...] nitrous oxide. Sandor Torres, et al. Jael Clip Baker Med. 1999;131(5):331-9. Homocysteine is increased by functional deficiency of folate or vitamin B12. Testing for methylmalonic acid differentiates between these deficiencies. Other causes of increased homocysteine include renal failure, folate antagonists such as methotrexate and phenytoin, and exposure to nitrous oxide. Sandor Torres, et al., Jael Clip Baker Med. 1999;131(5):331-9. CARDIO IQ(TM) APOLIPOPROTEIN B Reviewed date:05/30/2024 08:43:51 AM Interpretation: Performing Lab:[facility], [employer] [employer] [address], [address], OppyqttncPU[address] Karina Porter Notes/Report: Received Date: 0; 0; [...] Reviewed date:05/30/2024 08:43:51 AM Interpretation: Performing Lab:[facility], [facility], [address], [place]vyttqzorUM[address] Karina Porter Notes/Report: Received Date: 0; 0; [...] change in test platforms from the [employer] Driver'[employer] License Examiner to the Jennifer lam c503 may have shifted HbA1c results compared to historical results. Based on laboratory validation testing conducted at [facility] [employer], the Jennifer platform relative to the Knox [...] Reviewed date:05/30/2024 08:43:51 AM Interpretation: Performing Lab:[facility] [facility], [address], [place]cggzlkfgHK[address] Karina Ramosari Notes/Report: Received Date: [id number] 0; 0; 0; 0; 0; 0; 0; [...] for Disease Control and Prevention and the [place] [employer] Association. Circulation 2003; 107(3): 499-511. For [...] for Disease Control and Prevention and the [place] Heart Association. Circulation 2003; 107(3): 499-511. CARDIO IQ(TM) LIPOPROTEIN (a ) Reviewed date:05/30/2024 08:43:50 AM Interpretation: Performing Lab:[facility].-[address], [address], MwygvgvajGJ[address] Karina Porter Notes/Report: Received Date: 0; 0; 0; 0; 0; 0; 0; 0; 0; 0; 0; 0 FASTING:YES PATIENT REFUSED SOME TESTING; PATIENT ENCOURAGED FASTING: YES LIPOPROTEIN (a) <10 <75 nmol/L Verified by repeat analysis. Risk: Optimal <75 nmol/L; Moderate 75-125 nmol/L; High >125 nmol/L. Cardiovascular event risk category cut points (optimal, moderate, high) are based on Nico Carvalho [facility] 2017;69:692-711. 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 Problem Mixed hyperlipidemia (100704283) Mixed hyperlipidemia (E78.2) Active confirmed Problem Tension-type headach e (274522897) Tension-type headache, unspecified, not intractable (G44.209) Active confirmed Problem Chronic sinusitis (68141852) Chronic sinusitis, unspecified (J32.9) Active confirmed Problem Irritable bowel syndrome with diarrhea (327669362) Irritable bowel syndrome with diarrhea (K58.0) Active confirmed Problem Intestinal malabsorption (849279439) Other intestinal malabsorption (K90.89) Active confirmed Problem C-reactive protein abnormal (966149021) Elevated C-reactive protein (CRP) (R79.82) Active confirmed Vital Signs Heart Rate 70 /min 08/16/2024 Oximetry 98 % 08/16/2024 Blood pressure diastolic 82 mm Hg 08/16/2024 Height 73.75 in 08/16/2024 Blood pressure systolic 130 mm Hg 08/16/2024 Encounters Encounter Location Date Provider Diagnosis [address] [id number] 11/20/2023 Donta Olivas Other fatigue R53.83 ; Decreased libido R68.82 ; Other symptoms and signs involving cognitive functions and awareness R41.89 and Dietary counseling and surveillance Z71.[address] [id number] 01/30/2024 Donta Olivas Abdominal distension (gaseous) R14.0 ; Irritable bowel syndrome with diarrhea K58.0 ; Exercise counseling Z71.82 ; Person consulting for explanation of examination or test findings Z71.2 ; Dietary counseling and surveillance Z71.3 ; Other intestinal malabsorption K90.89 and Other specified functional intestinal disorders K59.[address] [id number] 02/22/2024 Shirley Cas Abdominal distension (gaseous) R14.0 ; Irritable bowel syndrome with diarrhea K58.0 ; Other intestinal malabsorption K90.89 and Other specified functional intestinal disorders K59.[address] [id number] 05/14/2024 Donta Olivas Impaired fasting glucose R73.01 ; Elevation of levels of liver transaminase levels R74.01 ; Person consulting for explanation of examination or test findings Z71.2 and Dietary counseling and surveillance Z71.[address] [id number] 08/16/2024 America Knowles Other sites of candidiasis B37.89 ; Bacterial intestinal infection, unspecified A04.9 ; Dietary counseling and surveillance Z71.3 and Person consulting for explanation of examination or test findings Z71.[address] [id number] 04/17/2024 Donta Olivas Homocystinuria E72.1 1 ; Mixed hyperlipidemia E78.2 ; Other fatigue R53.83 ; Elevated blood-pressure reading, without diagnosis of hypertension R03.0 ; Candidal enteritis B37.82 ; Unspecified abnormal finding in specimens from other organs, systems and tissues R89.9 ; Abnormal level of hormones in specimens from other organs, systems and tissues R89.1 and Testicular hypofunction E29.[address] [id number] 05/23/2024 Donta Olivas Candidal enteritis B37.[address] [id number] 08/02/2024 Donta Olivas [address] [id number] 10/28/2024 Donta Olivas Candidal enteritis B37.[address] [id number] 04/19/2024 Donta Olivas [address] [id number] 06/05/2024 Donta Olivas [address] [id number] 07/26/2024 Donta Olivas Other fatigue R53.83 ; Bitten or stung by nonvenomous insect and other nonvenomous arthropods, initial encounter W57.XXXA ; Lyme disease, unspecified A69.20 and Pain in unspecified joint M25.[address] [id number] 10/12/2024 Donta Olivas [address] [place] [address] 10/12/2024 Donta Olivas Assessments Encounter Date Diagnosis (ICD Code) Assessment Notes Treatment Notes Treatment Clinical Notes Section Notes 11/20/2023 Other fatigue (ICD-10 - R53.83) This [...] energy, brainfog, and libido. Recommended BCQ as anti-inflammatory , anti-oxidant support post-COVID. Recommended initiating men's as [...] energy, brainfog, and libido. Recommended BCQ as anti-inflammatory , anti-oxidant support post-COVID. Recommended initiating men's as [...] of SIBO. Correlated with clinical presentation at [facility]. 02/22/2024 Abdominal distension (gaseous) (ICD-10 - R14.0) Max levels: Methane (through all) -7 Hydrogen (through 120m) -19 Results not suggestive of SIBO. Correlated with clinical presentation at [facility]. 04/17/2024 Homocystinuria (ICD-10 - E72.11) 05/14/2024 [...] pain. 05/23/2024 Candidal enteritis (ICD-10 - B37.82) 07/26/2024 Other fatigue (ICD-10 - R53.83) 08/16/2024 Bacterial intestinal infection, unspecified (ICD-10 - A04.9) 08/16/2024 Other sites of candidiasis (ICD-10 - B37.89) Candidiasis-ch ronic and uncontrolled for the past 3 years with symptoms of bloating, heartburn, gas, fatigue, dandruff, chronic sinusitis, oral thrush, generalized rashes (legs). Recent lab work shows elevated sam levels. Has been working with Dr. Olivas by trying nystatin, adding supplements and changing diet. Has not felt any improvement. Recommend to start Fluconazole 100mg daily for 30 -60 days and follow low sugar sam diet. Pt to call office if symptoms worsen or do not improve. Follow up with Dr. Olivas. 10/28/2024 Candidal enteritis (ICD-10 - B37.82) 08/16/2024 Dietary counseling and surveillance (ICD-10 - Z71.3) 07/26/2024 Bitten or stung by nonvenomous insect and other nonvenomous arthropods, initial encounter (ICD-10 - W57.XXXA) 05/14/2024 Person consulting for explanation of examination [...] may have contributed to RUQ pain. 04/17/2024 Mixed hyperlipidemia (ICD-10 - E78.2) 02/22/2024 [...] energy, brainfog, and libido. Recommended BCQ as anti-inflammatory , anti-oxidant support post-COVID. Recommended initiating men's as [...] energy, brainfog, and libido. Recommended BCQ as anti-inflammatory , anti-oxidant support post-COVID. Recommended initiating men's as nutrient support post-COVID. 01/30/2024 Person consulting for explanation of examination [...] This may have contributed to RUQ pain. 07/26/2024 Lyme disease, unspecified (ICD-10 - A69.20) 08/16/2024 Person consulting for explanation of examination or test findings (ICD-10 - Z71.2) 07/26/2024 Pain in unspecified joint (ICD-10 - M25.50) 04/17/2024 Elevated blood-pressure reading, without diagnosis of [...] assess need for stomach pH support. 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 Time spent preparing [...] alternatives ... patient presents to review symptoms. 11/20/2023 Other Consent obtained. Time spent preparing [...] energy, brainfog, and libido. Recommended BCQ as anti-inflammatory , anti-oxidant support post-COVID. Recommended initiating men's as [...] (IGG,IGA,IGM) 2022 SAM ALBICANS AB (IGG,IGA,IGM) 2023 SAM ALBICANS AB (IGG,IGA,IGM) 2024 SELENIUM, RBC 07/27/2021 METHYLENETETRAHYDROFOLATE REDUCTASE (MTH FR), DNA 07/27/2021 ALLERGEN GLUTEN IGG 06/12/2023 OMEGA 3 AND 6 FATTY ACIDS, PLASMA 2021 VITAMIN D 25 OH 11/20/2023 LACTULOSE BREATH TEST 12/26/2022 LACTULOSE BREATH TEST 01/30/2024 CARDIO IQ(R) LIPID PANEL WITH REFLEX TO DIRECT LDL 03/28/2022 CELIAC DISEASE DIAGNOSTIC PANEL 06/12/19 24 SAM IMMUNE COMPLEX 06/12/2023 SAM IMMUNE COMPLEX 04/17/2024 SAM IMMUNE COMPLEX 10/28/2024 SAM IMMUNE COMPLEX 11/20/2023 SAM IMMUNE COMPLEX 03/28/2022 SAM IMMUNE COMPLEX 07/27/2021 TICK BORNE DISEASE, ANTIBODY PANEL 09/29 CORTISOL, LC/MS, SALIVA, 3 SAMPLES 09/29 TMAO (TRIMETHYLAMINE N OXIDE) 04/17/2024 GASTROINTESTINAL PATHOGEN PANEL, REAL TI ME PCR 01/30/2024 Next Appt Details [facility] 11:30:00 AM, [address] [facility], [address], [place], [address], Insurance Providers Payer Name Payer Address Payer Phone Subscriber Number Group Number Insured Name Patient Relationship to Insured Coverage Start Date Coverage End Date [facility] [address] [place], [place] [phone] [id number] Pacheco Bonner Self - patient is the insured Medical (General) History Surgical History Surgery Date(Month/Year) Tendon repair surgery 07/01/2020
--- OUTSIDE RECORDS SUMMARY | 2024-11-13 18:02 | XMS_ITS ---
Author Name [facility] Organization Unknown History of Medication Use Medication Directions Dispensed Refills Start Date End Date Stat Fluconazole 100 MG Fluconazole 100 MG active Encounters Encounter Type Encounter Reason Primary Diagnosis Location Date [facility] 10/28/2024 [facility] 05/23/2024 [facility] 05/14/2024 [facility] 04/24/2024 [facility] 02/22/2024 [facility] 01/30/2024 [facility] 11/20/2023 [facility] 08/21/2023 [facility] 06/12/2023 [facility] 04/12/2023 [facility] 12/26/2022 Care Team Organization Name Specialty Phone Email Start Date End Da [facility] MENDOZA LEIVA Primary Care 04/02/2023
[2024-11-16 19:03] LABS: Candida Antibodies IgA 0.6; Candida Antibodies IgG 1.2; Candida Antibodies IgM 0.4
== END 2024-11-13 16:38 | disposition home or self-care (01) ==
LOC: HO.LAB 16:37
PROVIDERS: PCP Internal Medicine; Visit Provider Naturopath
DX: B37.82 Candidal enteritis (principal)
CPT/HCPCS: 86332; 86628

== ENCOUNTER 2024-11-16 11:39 | Outpatient (AMB) | payer OTHER, SELFPAY ==
--- OUTSIDE RECORDS SUMMARY | 2024-08-12 11:30 | XMS_ITS ---
Author Organization [facility] Address [address], [place] [id number] Care Team Providers Care Electronic Scale Assembler And Tester Name Role Phone Donta Olivas [phone] REASON FOR VISIT ROF labs Encounters Encounter Location Date Provider Diagnosis [address] [phone] 08/12/2024 Donta Olivas Plan Of Treatment Next Appt Details Provider Name:Donta Downs [facility] [place], 12/23/2024 11:30:00 AM, [address] [facility], [address], [place], [address], Progress Notes * Pacheco MORRISON B:1985 (39 yo M)Acc No.[id number]:08/12/2024 Patient: Pacheco VILLA Provider: Gene Olivas ND :1985 A ge:38 Y S ex:Male Date:08/12/2024 Address:[address] [place], [place] [id number] Subjective: * Chief Complaints: * 1 . ROF labs. * Medical History: Objective: * Vitals: Assessment: Plan: * Treatment: * * Electronic signature of Wai Olivas ND on 11/16/2024 at 11:41 AM EDT Sign off status: Pending * Provider: Gene Olivas ND Date: 08/12/2024 Generated for Zeferino bingham/Lawrence/Nomiitting on: 0 11/16/2024 11:41 AM EDT
--- OUTSIDE RECORDS SUMMARY | 2024-10-14 11:00 | XMS_ITS ---
Author Organization [facility] Address [address] [place] [phone] Care Team Providers Care Machine Heel Seat Fitter Name Role Phone Donta Olivas Unavailable [phone] Allergies No Known Allergies REASON FOR VISIT rof labs Medications Medication SIG (Take, Route, Fr equency, Duration) Notes Start Date End Date Status Fluconazole 100 MG 1 tablet Orally greta y; Duration: 30 days Unknown Encounters Encounter Location Date Provider Diagnosis [address] [place] [address] 10/14/2024 Donta Olivas Assessments Encounter Date Diagnosis [...] Of Treatment Next Appt Details [facility] 11:30:00 AM, 1 [facility], [address], [place], [address], Progress Notes * Pacheco MORRISON B:1985 (39 yo M)Acc No.[id number]:10/14/2024 Progress Notes Patient: Cornelia Pacheco GOLDSMITH Provider: Gene ginna KWAN Olivas :1985 A ge:39 Y S ex:Male Date:10/14/2024 Address:[address] [place] [address] Subjective: * Chief Complaints: * 1 . [...] turkey, etc. No sugar. - IQ Bars, [place] Bars, Perfect Bars a re plant-based protein [...] stress, cardiovascular health, and blood pressure. - [place]-3. - Vitamin D3 + K2. https://[employer].Nextt/welcome/cnhp ___ HCL challenge test (don't do this [...] help, can continue with... - Betaine HCl ([employer])- get this supplement and stay at the [...] 0 10/14/2024 Generated for Zeferino bingham/Lawrence/Milton on: 0 11/16/2024 11:41 AM EDT History and Physical Notes * Examination [...]
--- OUTSIDE RECORDS SUMMARY | 2024-11-16 11:42 | XMS_ITS | Patient Health Record ---
Author Organization [facility] Address [address] [place] [phone] Care Team Providers Care Model Maker Name Role Phone Donta Olivas Unavailable [phone] Shirley Cardozo DO Unavailable [phone] America Knowles Unavailable [phone] Allergies No Known Allergies Results Component Value Reference Range Notes CARDIO IQ(R) INSULIN RESISTA NCE PANEL WITH SCORE Reviewed date:05/30/2024 08:43:51 AM Interpretation: Performing Lab:EZ, [facility],[address] [facility] Conchis Kebede MD,PhD,STEVE Notes/Report: Received Date: 0; 0; 0; 0; 0; 0; 0; 0; 0; 0; 0; 0 FASTING:YES PATIENT REFUSED SOME TESTING; PATIENT ENCOURAGED FASTING: YES INSULIN, INTACT, LC/MS/MS 12 < OR = 16 uIU/m L Insulin concentration can be converted to pmol/L by applying the conversion factor: 1 uIU/mL = 5.97 pmol/L For additional information, please refer to http://education.[employer].com/faq/JGM289 (This link is being provided for informational/educational purposes only.) This test was developed and its analytical performance characteristics have been determined by [employer]. It has not been cleared or approved [...] for apparently healthy individuals. J Endocr Soc. 2018;2(9):2237-0142). For additional information, please refer to http://education.[employer]ader.com/faq/DUM012 (This link is being provided for informational/educational purposes only.) This test was developed and its analytical performance characteristics have been determined by [employer]. It has not been cleared or approved by the FDA. This assay has been validated pursuant to the CLIA regulations and is used for clinical purposes. Cardio IQ(R) Oxidized LDL Reviewed date:05/30/2024 08:43:51 AM Interpretation: Performing Lab:[facility], [facility].[address] [place] [address], [address], ExbdwygssXN[address] Karina Porter Notes/Report: Received Date: 0; 0; [...] a high relative risk (3.5-fold). (Reference: 1-Marycruz lewis al. KATELYN. 2008; 299: 2251-7081.) Cardio IQ (R) ADMA and SDMA Reviewed date:05/30/2024 08:43:51 AM Interpretation: Performing Lab:[facility], [facility], [address], LmlgfhadwJA[address] Karina Porter Notes/Report: Received Date: 0; 0; 0; 0; 0; 0; 0; 0; 0; 0; 0; 0 FASTING:YES PATIENT REFUSED SOME TESTING; PATIENT ENCOURAGED FASTING: YES ADMA 104 <100 ng/mL This test was developed and its analytical performance characteristics have been determined by [employer] [facility]. It has not been cleared or approved [...] study using 180 'apparently healthy,' non-smoking donors, [facility] has defined the following cut-offs for ADMA: A cut-off of <100 ng/mL defines an 'apparently healthy' population at optimal relative risk for a cardiovascular event, 100-123 ng/mL defines a population at moderate relative risk for a cardiovascular event, and >123 ng/mL defines a high relative risk population. (Reference: 1-Jenna Fraser. et al. J Am Heart Assoc. 2015; 4: u977588). SDMA 81 73-135 ng/mL CARDIO IQ(R) LP PLA2 ACTIVIT Y Reviewed date:05/30/2024 08:43:51 AM Interpretation: Performing Lab:[facility], [facility], [address], TrtoogemwXJ[address] Karina Porter Notes/Report: Received Date: 0; 0; 0; 0; 0; 0; 0; 0; 0; 0; 0; 0 FASTING:YES PATIENT REFUSED SOME TESTING; PATIENT ENCOURAGED FASTING: YES LP PLA2 ACTIVITY 136 <124 nmol/min/mL Relative Risk: Optimal <=123 nmol/min/mL; High >123 nmol/min/mL. This test was developed and its analytical performance characteristics have been determined by [employer]. It has not been cleared or approved by the FDA. This assay has been validated pursuant to the CLIA regulations and is used for clinical purposes. See Note 1 Note 1 This test was developed and its analytical performance characteristics have been determined by [employer]. It has not been cleared or approved by the FDA. This assay has been validated pursuant to the CLIA regulations and is used for clinical purposes. CARDIO IQ(R) LIPID PANEL WIT H REFLEX TO DIRECT LDL Reviewed date:05/30/2024 08:43:51 AM Interpretation: Performing Lab:[facility].[address] [place] [address], [address], KtorwmqaqHW[address] Karina Porter Notes/Report: Received Date: [id number] 0; 0; 0; 0; 0; 0; 0; [...] LDL-C. Rc SS et al. KATELYN. 2013;310(19): 8981-4681 (http://education.[employer].com/faq/EFD847) LDL-C is now calculated using the Rc-Escalante calculation, which is a validated novel method providing better accuracy than the Friedewald equation in the estimation of LDL-C. Rc SS et al. KATELYN. 2013;310(19): 6409-6773 (http://education.[employer].com/faq/JDY547) CHOL/HDLC RATIO 5.6 <5.0 calc NON HDL CHOLESTEROL 209 <130 mg/dL (calc) For patients with diabetes plus 1 major ASCVD risk factor, treating to a non-HDL-C goal of <100 mg/dL (LDL-C of <70 mg/dL) is considered a therapeutic option. CARDIO IQ(TM)HOMOCYSTEINE CA RDIOVASCULAR Reviewed date:05/30/2024 08:43:51 AM Interpretation: Performing Lab:Cheng, [facility] [address], [address], GxjowhkubMH[address] Karina Porter Notes/Report: Received Date: [id number] 0; 0; 0; 0; 0; 0; 0; [...] nitrous oxide. Sandor Torres, et al. Jael Touch Up Edger Med. 1999;131(5):331-9. Homocysteine is increased by functional deficiency of folate or vitamin B12. Testing for methylmalonic acid differentiates between these deficiencies. Other causes of increased homocysteine include renal failure, folate antagonists such as methotrexate and phenytoin, and exposure to nitrous oxide. Sandor Torers, et al., Jael Touch Up Edger Med. 1999;131(5):331-9. CARDIO IQ(TM) APOLIPOPROTEIN B Reviewed date:05/30/2024 08:43:51 AM Interpretation: Performing Lab:Cheng [facility] [employer] [address], [address], TngatppuxMO[address] Karina Porter Notes/Report: Received Date: [id number] 0; 0; 0; 0; 0; 0; 0; 0; 0; 0; 0; 0 FASTING:YES PATIENT REFUSED SOME TESTING; PATIENT ENCOURAGED FASTING: YES APOLIPOPROTEIN B 143 <90 mg/dL Risk: Optimal <90 mg/dL; Moderate 90-119 mg/dL; High >= 120 mg/dL; Cardiovascular event risk category cut points (optimal, moderate, high) are based on National Lipid Association recommendations- Leslie TA et al. J of Clin Lipid. 2015; 9: 129-169 and Anabela PS et al. Endocr Pract. 2017;23(Suppl 2):1-87. CARDIO IQ(TM) HEMOGLOBIN A1c Reviewed date:05/30/2024 08:43:51 AM Interpretation: Performing Lab:Z[facility], [facility], [address], [place]keER[address] Karina Porter Notes/Report: Received Date: 0; 0; [...] change in test platforms from the Knox Data Architect Manager to the Jennifer lam c503 may have shifted HbA1c results compared to historical results. Based on laboratory validation testing conducted at [facility], the Jennifer platform relative to the Knox [...] CRP Reviewed date:05/30/2024 08:43:51 AM Interpretation: Performing Lab:[facility], [address], [place]goUQ[address] Karina Porter Notes/Report: Received Date: 0; 0; [...] for Disease Control and Prevention and the [place] Heart Association. Circulation 2003; 107(3): 499-511. For [...] for Disease Control and Prevention and the [place] Heart Association. Circulation 2003; 107(3): 499-511. CARDIO IQ(TM) LIPOPROTEIN (a ) Reviewed date:05/30/2024 08:43:50 AM Interpretation: Performing Lab:[facility], [facility] [place] [address], [address], AanredkpgGN[address] Karina Porter Notes/Report: Received Date: [id number] 0; 0; 0; 0; 0; 0; 0; 0; 0; 0; 0; 0 FASTING:YES PATIENT REFUSED SOME TESTING; PATIENT ENCOURAGED FASTING: YES LIPOPROTEIN (a) <10 <75 nmol/L Verified by repeat analysis. Risk: Optimal <75 nmol/L; Moderate 75-125 nmol/L; High >125 nmol/L. Cardiovascular event risk category cut points (optimal, moderate, high) are based on Nico Carvalho [facility] 2017;69:692-711. SAM IMMUNE COMPLEX Reviewed date:08/09/2024 12:17:53 PM Interpretation: Performing Lab:[facility], [facility], MdvdaoWX[address] Ofe Singh PHD,HCLD(ABB) Notes/Report: Received Date: 0 FASTING:NO FASTING: NO SAM IMMUNE COMPLEX 2.03 <0.90 Index Negative <0.90 Inconclusive > = 0.90 to < = 1.09 Positive > = 1.10 The performance characteristics of the listed assay was validated by [facility]. The [place] FDA has not approved or cleared this test. The results of this assay can be used for clinical diagnosis without FDA approval. [facility] is a CLIA certified, CAP accredited laboratory for performing high complexity assays such as this one. 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 Problem Mixed hyperlipidemia (936534863) Mixed hyperlipidemia (E78.2) Active confirmed Problem Tension-type headach e (205172484) Tension-type headache, unspecified, not intractable (G44.209) Active confirmed Problem Chronic sinusitis (08327503) Chronic sinusitis, unspecified (J32.9) Active confirmed Problem Irritable bowel syndrome with diarrhea (724502479) Irritable bowel syndrome with diarrhea (K58.0) Active confirmed Problem Intestinal malabsorption (855324840) Other intestinal malabsorption (K90.89) Active confirmed Problem C-reactive protein abnormal (726030928) Elevated C-reactive protein (CRP) (R79.82) Active confirmed Vital Signs Heart Rate 70 /min 08/16/2024 Blood pressure diastolic 82 mm Hg 08/16/2024 Oximetry 98 % 08/16/2024 Height 73.75 in 08/16/2024 Blood pressure systolic 130 mm Hg 08/16/2024 Encounters Encounter Location Date Provider Diagnosis [address] [id number] 11/20/2023 Donta Olivas Other fatigue R53.83 ; Decreased libido R68.82 ; Other symptoms and signs involving cognitive functions and awareness R41.89 and Dietary counseling and surveillance Z71.[address] [id number] 01/30/2024 Donta Olivas Abdominal distension (gaseous) R14.0 ; Irritable bowel syndrome with diarrhea K58.0 ; Exercise counseling Z71.82 ; Person consulting for explanation of examination or test findings Z71.2 ; Dietary counseling and surveillance Z71.3 ; Other intestinal malabsorption K90.89 and Other specified functional intestinal disorders K59.[address] [id number] 02/22/2024 Shirley Cas Abdominal distension (gaseous) R14.0 ; Irritable bowel syndrome with diarrhea K58.0 ; Other intestinal malabsorption K90.89 and Other specified functional intestinal disorders K59.[address] [id number] 05/14/2024 Donta Olivas Impaired fasting glucose R73.01 ; Elevation of levels of liver transaminase levels R74.01 ; Person consulting for explanation of examination or test findings Z71.2 and Dietary counseling and surveillance Z71.[address] [id number] 08/16/2024 America Knowles Other sites of candidiasis B37.89 ; Bacterial intestinal infection, unspecified A04.9 ; Dietary counseling and surveillance Z71.3 and Person consulting for explanation of examination or test findings Z71.[address] [id number] 04/17/2024 Donta Olivas Homocystinuria E72.1 1 ; Mixed hyperlipidemia E78.2 ; Other fatigue R53.83 ; Elevated blood-pressure reading, without diagnosis of hypertension R03.0 ; Candidal enteritis B37.82 ; Unspecified abnormal finding in specimens from other organs, systems and tissues R89.9 ; Abnormal level of hormones in specimens from other organs, systems and tissues R89.1 and Testicular hypofunction E29.[address] [id number] 05/23/2024 Donta Olivas Candidal enteritis B37.[address] [id number] 08/02/2024 Donta Olivas [address] [id number] 10/28/2024 Donta Olivas Candidal enteritis B37.[address] [id number] 04/19/2024 Donta Olivas [address] [id number] 06/05/2024 Donta Olivas [address] [id number] 07/26/2024 Donta Olivas Other fatigue R53.83 ; Bitten or stung by nonvenomous insect and other nonvenomous arthropods, initial encounter W57.XXXA ; Lyme disease, unspecified A69.20 and Pain in unspecified joint M25.[address] [id number] 10/12/2024 Donta Olivas [address] [place] [address] 10/12/2024 Donta Olivas Assessments Encounter Date Diagnosis [...] of SIBO. Correlated with clinical presentation at [facility]. 02/22/2024 Abdominal distension (gaseous) (ICD-10 - R14.0) Max levels: Methane (through all) -7 Hydrogen (through 120m) -19 Results not suggestive of SIBO. Correlated with clinical presentation at [facility]. 04/17/2024 Homocystinuria (ICD-10 - E72.11) 05/14/2024 [...] PCR 01/30/2024 Next Appt Details [facility] 11[facility]30:00 AM, [address] [facility], [address], [place], [address], Insurance Providers Payer Name Payer Address Payer Phone Subscriber Number Group Number Insured Name Patient Relationship to Insured Coverage Start Date Coverage End Date [facility] [address] [place], [place] [id number] Pacheco Bonner Self - patient is the insured Medical (General) History Surgical History Surgery Date(Month/Year) Tendon repair surgery 07/01/2020
[2024-11-16 12:05] VITALS: BP 100/70; PULSE 76; RESP 15; TEMP 36.8; O2SAT 95; BMI 28.8
--- NOTE | 2024-11-16 12:05 | AM.OFFWIN_ITS ---
Intake Vital Signs 3 11/16/24 12:05 Height 6 ft 1 in Weight 218 lb BMI 28.8 BP 100/70 Blood Pressure Location Rt brachial Position Sitting Respiration 15 Pulse 76 Pulse Source Pulse Oximeter Temp 98.2 F Temp Source Oral Pulse Oximetry (%) 95 Oxygen Delivery Method Room Air Intake Visit Reasons: EP - rash both legs Intake Note: Pt is here today c/o bilateral thighs rash x1week Patient Tobacco Use Status: Never used Tobacco Allergies cetirizine Adverse Reaction (Intermediate, Verified 11/16/24 12:25) Dizziness montelukast Adverse Reaction (Intermediate, Verified 11/16/24 12:25) Drowsy Medication List - Last Reconciled 11/16/24 by Caitlyn Nascimento, CUTTER ALUMINUM SHEET- fluticasone propionate 50 mcg/actuation (Flonase Allergy Relief) 1 spray intranasal DAILY HPI HPI Comments 2 History of Present Illness0 Details History of Present Illness - The patient is a 39-year-old male pres enting with a rash. - Rash initiated one week ago, increased in size threefold. Very itchy. - Patient reports no similar past episod es, except for infrequent sweat rashes. - Home remedies utilized: coconut oil, s oap, and brother's mupiricon ointment. - No poison plant contact or known aller gic reactions. - Rash found on both sides, extending to the waist, presented with welts. Review of Systems - Dermatologic: Reports rash with expand ing size and welts, denies prior similar occurrences except for infrequent sweat rashes. - Allergic/Immunologic: Reports history of allergies treated with Cetirizine and Montelukast which caused him chest pain - Respiratory: Reports an episode of eligio athlessness due to allergies. - Environmental: Denies exposure to pois on plants such as gonzales or oak. Physical Exam General: Well developed, well nourished, in no acute distress. Appears stated age. Head: Normocephalic, atraumatic. Eyes: Pupils are equal, round and reactive to light and accommodation. Conjunctivae are clear. Vision grossly normal. Lungs: Speaking in full sentences Skin: bilateral upper thighs/hips is the rash, worse on the R side. There is no warmth. No drainage. No pustules. Discussion Notes I discussed with the patient the clinical presentation of the rash and considered different possible causes.The appearance of the rash does not suggest cellulitis as there are no pustules, crusting or warmth. The rash presents more as a folliculitis with secondary excoriations. I explained the likelihood of an inflammatory or allergic process. I recommended the use of oral prednisone to help reduce the inflammation and itching, emphasizing its importance in resolving the rash and providing symptom relief. I advised him to stop applying any home treatments to ensure clear evaluation of the rash's progress. Avoiding friction or shear, particularly from work belts, was suggested to prevent exacerbation. The importance of attending the already scheduled appointment with his primary care physician was stressed, for a follow-up evaluation and potential referral if the condition does not improve. I ensured understanding of taking the medication with food to prevent gastrointestinal upset. He affirmed understanding of the instructions and agreed with the plan. Patient was given time to ask questions. All questions were answered to their satisfaction. Assessment and Plan 1. Rash - Prescribed prednisone for inflammation . - Advised stopping home remedies. - Emphasized loose clothing, avoiding fr iction. - Follow-up with primary care physician suggested. has appt monday. Advised to keep. Patient Instructions - Take prescribed prednisone with food t o avoid stomach upset. - Do not apply any home treatments or oi ntments to the rash. - Wear loose-fitting clothing to prevent further irritation. - Avoid using work belts to reduce frict ion on the rash area. - Attend your upcoming appointment with your primary care physician for a follow-up check. Consent Patient was informed and verbally consented to the use of an ambient scribe for clinic note documentation during this visit. [facility] Medical History (Updated 01/21/24 @ 00:00 by Tien Harris) Allergic rhinitis Encounter for general adult medical examination with abnormal findings Familial hypercholesterolemia No significant medical problems Surgical History No history of previous surgery Family History Mother POTS (postural orthostatic tachycardia syndrome) Father No problems noted. Brother No problems noted. Brother No problems noted. Brother No problems noted. Daughter No problems noted. Social History Housing: House Patient Tobacco Use Status: Never used Tobacco Tobacco use type: Cigarette e-Cigarette/Vaping Use: Never Used Second Hand Smoke Exposure: No service: No Current occupational status: employed Current occupation: Self Employed - Construction Current occupational exposures/hazards: No Cognitive needs: No Hearing needs: No Vision needs: No Physical Exam Vital Signs: Last Vital Signs Temp 98.2 F 11/16/24 12:05 Pulse 76 11/16/24 12:05 Resp 15 11/16/24 12:05 BP 100/70 11/16/24 12:05 Pulse Ox 95 11/16/24 12:05 Oxygen Delivery Method Room Air 11/16/24 12:05 BMI result Body Mass Index 28.8 Assessment & Plan Assessment & Plan (1) Rash: Code(s): R21 - Rash and other nonspecific skin eruption Plan . Medications: New 2 prednisone 5 tabs x 2 days, 4 tabs x 2 days, 3 tabs x 2 days, 2 tabs x 2 days, 1 tab x 2 days and then STOP. 10 mg PO DIRECTED 30 tabs 0RF 10 days Patient Instructions: Patient Instructions - Take prescribed prednisone with food to avoid stomach upset. - Do not apply any home treatments or ointments to the rash. - Wear loose-fitting clothing to prevent further irritation. - Avoid using work belts to reduce friction on the rash area. - Attend your upcoming appointment with your primary care physician for a follow-up check. Coding Level of Care Code Est Pt Level 3 (31132) Diagnoses Rash R21
== END 2024-11-16 12:36 | disposition home or self-care (01) ==
LOC: HO.HMCWIC 11:39
PROVIDERS: PCP Internal Medicine; Visit Provider Nurse Practitioner Family
DX: R21 Rash and other nonspecific skin eruption (principal)

== ENCOUNTER 2024-12-12 08:28 | Outpatient (AMB) | payer OTHER, SELFPAY ==
--- OUTSIDE RECORDS SUMMARY | 2024-08-12 11:30 | XMS_ITS ---
Author Organization [facility] Address [address] [place], [place] [phone] Care Team Providers Care Rn Assessment Name Role Phone Donta Olivas [phone] REASON FOR VISIT ROF labs Encounters Encounter Location Date Provider Diagnosis [address] [id number] 08/12/2024 Donta Olivas Plan Of Treatment Next Appt Details Provider Name:Donta Downs [facility], 12/23/2024 11:30:00 AM, [address] [facility], [address], [place], [address], Progress Notes * Pacheco MORRISON B:1985 (39 yo M)Acc No.[id number]:08/12/2024 Patient: Pacheco VILLA Provider: Gene Olivas ND :1985 A ge:38 Y S ex:Male Date:08/12/2024 Address:[address] [place], [place] [phone] Subjective: * Chief Complaints: * 1 . ROF labs. * Medical History: Objective: * Vitals: Assessment: Plan: * Treatment: * * Electronic signature of Wai Olivas ND on 12/12/2024 at 08:46 AM EDT Sign off status: Pending * Provider: Gene Olivas ND Date: 0 08/12/2024 Generated for Zeferino bingham/Lawrence/Milton on: 1 08:46 AM EDT
--- OUTSIDE RECORDS SUMMARY | 2024-10-14 11:00 | XMS_ITS ---
Author Organization [facility] Address [address] [place] [phone] Care Team Providers Care Health And Safety Trainer Name Role Phone Donta Olivas Unavailable [phone] Allergies No Known Allergies REASON FOR VISIT rof labs Medications Medication SIG (Take, Route, Fr equency, Duration) Notes Start Date End Date Status Fluconazole 100 MG 1 tablet Orally greta y; Duration: 30 days Unknown Encounters Encounter Location Date Provider Diagnosis [address] [place] [address] 10/14/2024 Donta Olivas Assessments Encounter Date Diagnosis [...] Of Treatment Next Appt Details Provider [facility], 12/23/2024 11:30:00 AM, 1 [facility], [address], [place], [address], Progress Notes * Pacheco MORRISON B:1985 (39 yo M)Acc No.[id number]:10/14/2024 Progress Notes Patient: Cornelia Pacheco GOLDSMITH Provider: Geen ginna KWAN Olivas :1985 A ge:39 Y S ex:Male Date:10/14/2024 Address:[address] [place] [address] Subjective: * Chief Complaints: * 1 . Rof labs. * HPI: C C1: CC// ROF labs ___ 10/14/2024 This pt presents in-office for ROF of recent labs. Results reviewed and discussed during the visit. ___ 05/14/2024 Dnota Olivas 05/14/2024 12:07:06 PM EST > Donta [...] turkey, etc. No sugar. - IQ Bars, [place] Bars, Perfect Bars a re plant-based protein [...] stress, cardiovascular health, and blood pressure. - [place]-3. - Vitamin D3 + K2. https://Dexterra.Equipio.com.HolidayGang.com/welcome/cnhp ___ HCL challenge test (don't do this [...] help, can continue with... - Betaine HCl ([employer])- get this supplement and stay at the [...] 0 10/14/2024 Generated for Zeferino bingham/Lawrence/Milton on: 08:46 AM EDT History and Physical Notes * [...]
--- NOTE | 2024-12-12 08:43 | A.OFFPC_ITS ---
Vital Signs 12/12/24 08:44 Height 6 ft 1 in Weight 216 lb 8 oz BMI 28.6 BP 130/74 Blood Pressure Location Lt brachial Position Sitting Pulse 71 Pulse Source Pulse Oximeter Temp 97.3 F Temp Source Temporal Artery Scan Pulse Oximetry (%) 97 Oxygen Delivery Method Room Air Intake Visit Reasons: Annual Exam Intake Note: Patient is here today for a physical. Pharmacy Customer Care Specialist Required: No Personnel Manager: Not Required per policy Accompanied by: Self / Same As Patient Allergies cetirizine Adverse Reaction (Intermediate, Verified 12/12/24 09:01) Dizziness montelukast Adverse Reaction (Intermediate, Verified 12/12/24 09:01) Drowsy Medication List - Last Reconciled 12/12/24 by Juan Longo MD fluticasone propionate 50 mcg/actuation (Flonase Allergy Relief) 1 spray intranasal DAILY Tobacco use date assessed: 12/12/24 Dental Screening Dental Screen Date: 06/27/24 [facility] Medical History (Updated 12/12/24 @ 09:02 by Juan Longo MD) Allergic rhinitis Familial hypercholesterolemia Surgical History No history of previous surgery Family History Mother POTS (postural orthostatic tachycardia syndrome) Father No problems noted. Brother No problems noted. Brother No problems noted. Brother No problems noted. Daughter No problems noted. Social History (Updated 12/12/24 @ 08:47 by CARI Blackmon) Housing: House Alcohol intake: never Patient Tobacco Use Status: Never used Tobacco Tobacco use type: Cigarette e-Cigarette/Vaping Use: Never Used Second Hand Smoke Exposure: No service: No Current occupational status: employed Current occupation: Self Employed - Construction Current occupational exposures/hazards: No Cognitive needs: No Hearing needs: No Vision needs: No Questionnaire PHQ-9 Over the last 2 weeks, how often have you been bothered by any of the following problems? 1. Little interest or pleasure in doing things: not at all 2. Feeling down, depressed, or hopeless: not at all 3. Trouble falling or staying asleep, or sleeping too much: not at all 4. Feeling tired or having little energy: nearly every day 5. Poor appetite or overeating: not at all 6. Feeling bad about yourself - or that you are a failure or have let yourself or your family down: not at all 7. Trouble concentrating on things, such as reading the newspaper or watching television: not at all 8. Moving or speaking so slowly that other people could have noticed. Or the opposite - being so fidgety or restless that you have been moving around a lot more than usual: not at all 9. Thoughts that you would be better off or of hurting yourself in some way: not at all Total score: 3 Depression Screening Interpretation: Positive Depression Screening Done: Yes Source: Developed by Drs. Tevin Ramirez, Katlyn Tucker, Moises Martin and colleagues, with an educational venice from [employer]. Thrive Questionnaire Date Thrive assessed: 06/27/24 I am a: Patient What is your living situation today?: I have a steady place to live Within the past 12 months, did the food you bought not last and you didn't have the money to get more?: Never true Within the past 12 months, did you worry whether your food would run out before you got money to buy more?: Never true Do you have trouble paying for medicines?: I choose not to answer this question Do you have trouble getting transportation to medical appointments?: No Do you have trouble paying your heating and electricity bill?: No Do you have trouble taking care of your child, family member or friend?: No Do you have trouble with day-to-day activities such as bathing, preparing meals, shopping, managing finances, etc.?: No Are you currently unemployed and looking for a job?: No Are you interested in more education?: No Please select the resources that you would like help with: None Currently or been in a relationship where the following occur: No concerns reported THRIVE Score: 0 AUDIT C Alcohol Use Questionnaire (AUDIT-C) 1. How often do you have a drink containing alcohol?: Never Total Score: 0 MARGY-7 AMB Questionnaire MARGY-7 Date MARGY - 7 assessed: 06/27/24 Feeling nervous, anxious, or on edge: 0 = Not at all Not being able to stop or control worryin = Not at all Worrying too much about different things: 0 = Not at all Trouble relaxin = Not at all Being so restless that it is hard to sit still: 0 = Not at all Becoming easily annoyed or irritable: 0 = Not at all Feeling afraid as if something awful might happen: 0 = Not at all Total MARGY-7 score (0-4 normal; 5-9 mild; 10-14 moderate; 15-21 severe): 0 Source: Developed by Drs. Tevin Ramirez, Katlyn Tucker, Moises Martin and colleagues, with an educational venice from [employer]. Physical exam (Primary Care) Vital Signs: Last Vital Signs Temp 97.3 F 12/12/24 08:44 Pulse 71 12/12/24 08:44 BP 130/74 12/12/24 08:44 Pulse Ox 97 12/12/24 08:44 Oxygen Delivery Method Room Air 12/12/24 08:44 BMI result Body Mass Index 28.6 Tobacco/Smoking Status: Tobacco use Status Tobacco use date assessed 12/12/24 12/12/24 08:48 Patient Tobacco Use Status Never used Tobacco 12/12/24 08:48 Tobacco use type Cigarette 12/12/24 08:48 e-Cigarette/Vaping Use Never Used 12/12/24 08:48 PHQ-9: PHQ-9 Score PHQ-9: Total score 3 12/12/24 08:48 Depression Screening Interpretation: Positive Thrive Assessment: Date of Thrive Assessment Date Thrive assessed 06/27/24 12/12/24 08:48 Currently or been in a relationship where the following occur: No concerns reported Coding Level of Care Code Est Pt Prev Care 18-39y(68852) Diagnoses Annual physical exam Z00.00 Assessment & Plan Assessment & Plan (1) Annual physical exam: Code(s): Z00.00 - Encounter for general adult medical examination without abnormal findings Plan History of Present Illness - The patient is a 39-year-old male presenting for a physical examination and evaluation of allergic reactions and cholesterol management. - The patient experienced symptoms of throat constriction, dyspnea, facial n umbness, and subsequent hives on the thighs. - The patient initially suspected a staphylococcal infection but was treated with steroids at an urgent care facility, which resolved the hives, suggesting an allergic reaction. - The patient has a history of elevated cholesterol and has been working on dietary modifications to manage it. - The patient has not yet seen an ENT specialist for unresolved issues but has an appointment scheduled. Social History - Employment: Works in construction, which involves physical labor. - Family: Has a [id number]-txc daughter and another child on the way. Review of Systems - Respiratory: Reports dyspnea and throat constriction during allergic reaction. Denies current respiratory issues. - Dermatological: Reports hives on thighs following allergic reaction. Denies current skin issues. - Neurological: Reports facial numbness during allergic reaction. Denies current neurological symptoms. - Vision: Denies any vision problems. - Genitourinary: Denies any issues with urination. - Gastrointestinal: Denies any bowel habit changes. - Psychological: Denies anxiety, reports stress related to work. Physical Exam General: Cooperative and healthy appearing Nutritional Appearance: Well nourished Orientation/consciousness: Patient oriented x3 Limitations: No limitations Head: Normal to inspection General: Appearance normal, both eyes and all related structures Neck: Normal visual inspection Chest: Normal palpation of entire chest wall Respiratory: Difficulty breathing, symptoms of throat closing up ormal respiratory effort Neurology: Patient oriented x3, face feeling numb Results Plan - Plan to perform fasting blood work to monitor cholesterol levels. - Patient advised to continue dietary modifications to manage cholesterol. - Follow-up with ENT specialist scheduled for unresolved issues. Discussion Notes I discussed with the patient the importance of monitoring cholesterol levels through fasting blood work and advised on continuing dietary modifications. We also talked about the need to follow up with the ENT specialist for unresolved issues. I emphasized the importance of these steps in managing his health effectively. Patient Instructions - Schedule and complete fasting blood work for cholesterol monitoring. - Continue dietary modifications to help manage cholesterol levels. - Attend the scheduled appointment with the ENT specialist.
[2024-12-12 08:44] VITALS: BP 130/74; PULSE 71; TEMP 36.3; O2SAT 97; BMI 28.6
--- OUTSIDE RECORDS SUMMARY | 2024-12-12 08:46 | XMS_ITS | Patient Health Record ---
Author Organization [facility] Address [address] [place] [id number] Care Team Providers Care Pollution Control Engineer Name Role Phone Donta Olivas Unavailable [phone] Shirley Cardozo DO Unavailable [phone] America Knowles Unavailable [phone] Allergies No Known Allergies Results Component Value Reference Range Notes CARDIO IQ(R) INSULIN RESISTA NCE PANEL WITH SCORE Reviewed date:05/30/2024 08:43:51 AM Interpretation: Performing Lab:[facility], [facility],[address] [facility] CenterCA[address] Conchis Kebede MD,PhD,STEVE Notes/Report: Received Date: 0; 0; 0; 0; 0; 0; 0; 0; 0; 0; 0; 0 FASTING:YES PATIENT REFUSED SOME TESTING; PATIENT ENCOURAGED FASTING: YES INSULIN, INTACT, LC/MS/MS 12 < OR = 16 uIU/m L Insulin concentration can be converted to pmol/L by applying the conversion factor: 1 uIU/mL = 5.97 pmol/L For additional information, please refer to http://education.BuldumBuldum.com.com/faq/CNZ641 (This link is being provided for informational/educational purposes only.) This test was developed and its analytical performance characteristics have been determined by [employer]. It has not been cleared or approved [...] for apparently healthy individuals. J Endocr Soc. 2018;2(9):4550-7466). For additional information, please refer to http://education.BuldumBuldum.com.com/faq/XMI264 (This link is being provided for informational/educational purposes only.) This test was developed and its analytical performance characteristics have been determined by [employer]. It has not been cleared or approved by the FDA. This assay has been validated pursuant to the CLIA regulations and is used for clinical purposes. SAM IMMUNE COMPLEX Reviewed date:08/09/2024 12:17:53 PM Interpretation: Performing Lab:[facility], [facility] [address] , [id number] Ofe Singh PHD,HCLD(ABB) Notes/Report: Received Date: [id number] 0 FASTING:NO FASTING: NO SAM IMMUNE COMPLEX 2.03 <0.90 Index Negative <0.90 Inconclusive > = 0.90 to < = 1.09 Positive > = 1.10 The performance characteristics of the listed assay was validated by [employer] [facility]. The [place] FDA has not approved or cleared this test. The results of this assay can be used for clinical diagnosis without FDA approval. [employer] [facility] [facility] is a CLIA certified, CAP accredited laboratory for performing high complexity assays such as this one. Cardio IQ(R) Oxidized LDL Reviewed date:05/30/2024 08:43:51 AM Interpretation: Performing Lab:[facility] [place] [address], [address], [id number] Karina Porter Notes/Report: Received Date: [id number] 0; 0; 0; 0; 0; 0; 0; [...] (Reference: 1-Marycruz et al. KATELYN. 2008; 299: 2716-5690.) Cardio IQ (R) ADMA and SDMA Reviewed date:05/30/2024 08:43:51 AM Interpretation: Performing Lab:[facility], [address], GhgkvqgziUD[address] Karina Porter Notes/Report: Received Date: [id number] 0; 0; 0; 0; 0; 0; 0; 0; 0; 0; 0; 0 FASTING:YES PATIENT REFUSED SOME TESTING; PATIENT ENCOURAGED FASTING: YES ADMA 104 <100 ng/mL This test was developed and its analytical performance characteristics have been determined by [employer] [facility]. It has not been cleared or approved [...] al. J Am Heart Assoc. 2015; 4: [id number]). SDMA 81 73-135 ng/mL CARDIO IQ(R) LP PLA2 ACTIVIT Y Reviewed date:05/30/2024 08:43:51 AM Interpretation: Performing Lab:Valente, [facility]-[address], [facility] [address], XdxltcproOH[address] Karina Porter Notes/Report: Received Date: 0; 0; 0; 0; 0; 0; 0; 0; 0; 0; 0; 0 FASTING:YES PATIENT REFUSED SOME TESTING; PATIENT ENCOURAGED FASTING: YES LP PLA2 ACTIVITY 136 <124 nmol/min/mL Relative Risk: Optimal <=123 nmol/min/mL; High >123 nmol/min/mL. This test was developed and its analytical performance characteristics have been determined by [employer]. It has not been cleared or approved by the FDA. This assay has been validated pursuant to the CLIA regulations and is used for clinical purposes. See Note 1 Note 1 This test was developed and its analytical performance characteristics have been determined by [employer]. It has not been cleared or approved by the FDA. This assay has been validated pursuant to the CLIA regulations and is used for clinical purposes. CARDIO IQ(R) LIPID PANEL WIT H REFLEX TO DIRECT LDL Reviewed date:05/30/2024 08:43:51 AM Interpretation: Performing Lab:[facility] [address], [facility] [address], [id number] Karina Porter Notes/Report: Received Date: 0; 0; [...] LDL-C. Rc WARREN et al. KATELYN. 2013;310(19): 3620-5543 (http://education.Whodini.com/faq/ISK399) LDL-C is now calculated using the Stacie calculation, which is a validated novel method providing better accuracy than the Friedewald equation in the estimation of LDL-C. Rc WARREN et al. KATELYN. 2013;310(19): 4964-6036 (http://education.Whodini.com/faq/IKY604) CHOL/HDLC RATIO 5.6 <5.0 calc NON HDL CHOLESTEROL 209 <130 mg/dL (calc) For patients with diabetes plus 1 major ASCVD risk factor, treating to a non-HDL-C goal of <100 mg/dL (LDL-C of <70 mg/dL) is considered a therapeutic option. CARDIO IQ(TM)HOMOCYSTEINE CA RDIOVASCULAR Reviewed date:05/30/2024 08:43:51 AM Interpretation: Performing Lab:[facility], [employer], [address], [id number] aKrina Porter Notes/Report: Received Date: [id number] 0; 0; 0; 0; 0; 0; 0; [...] nitrous oxide. Sandor Torres, et al. [employer]. 1999;131(5):331-9. Homocysteine is increased by functional deficiency of folate or vitamin B12. Testing for methylmalonic acid differentiates between these deficiencies. Other causes of increased homocysteine include renal failure, folate antagonists such as methotrexate and phenytoin, and exposure to nitrous oxide. Sandor Torres, et al., [employer]. 1999;131(5):331-9. CARDIO IQ(TM) APOLIPOPROTEIN B Reviewed date:05/30/2024 08:43:51 AM Interpretation: Performing Lab:Val[facility], [employer], [address], [id number] Karina Porter Notes/Report: Received Date: 0; 0; [...] Reviewed date:05/30/2024 08:43:51 AM Interpretation: Performing Lab:[facility], [facility], [address], [id number] Karina Porter Notes/Report: Received Date: 0; 0; [...] change in test platforms from the Knox Physician Aide to the Jennifer lam c503 may have shifted HbA1c results compared to historical results. Based on laboratory validation testing conducted at [facility], the Jennifer platform relative to the Knox [...] Reviewed date:05/30/2024 08:43:51 AM Interpretation: Performing Lab:[facility] [facility], [address], [id number] Karina Ramosari Notes/Report: Received Date: [id number] 0; 0; 0; 0; 0; 0; 0; [...] for Disease Control and Prevention and the [place] [employer] Association. Circulation 2003; 107(3): 499-511. For [...] for Disease Control and Prevention and the [place] Heart Association. Circulation 2003; 107(3): 499-511. CARDIO IQ(TM) LIPOPROTEIN (a ) Reviewed date:05/30/2024 08:43:50 AM Interpretation: Performing Lab:[facility].-[address], [address], [id number] Karina Porter Notes/Report: Received Date: 0; 0; 0; 0; 0; 0; 0; 0; 0; 0; 0; 0 FASTING:YES PATIENT REFUSED SOME TESTING; PATIENT ENCOURAGED FASTING: YES LIPOPROTEIN (a) <10 <75 nmol/L Verified by repeat analysis. Risk: Optimal <75 nmol/L; Moderate 75-125 nmol/L; High >125 nmol/L. Cardiovascular event risk category cut points (optimal, moderate, high) are based on Nico Carvalho [facility] 2017;69:692-711. 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 Problem Mixed hyperlipidemia (657608683) Mixed hyperlipidemia (E78.2) Active confirmed Problem Tension-type headach e (043287038) Tension-type headache, unspecified, not intractable (G44.209) Active confirmed Problem Chronic sinusitis (75350204) Chronic sinusitis, unspecified (J32.9) Active confirmed Problem Irritable bowel syndrome with diarrhea (711228355) Irritable bowel syndrome with diarrhea (K58.0) Active confirmed Problem Intestinal malabsorption (851081832) Other intestinal malabsorption (K90.89) Active confirmed Problem C-reactive protein abnormal (781653614) Elevated C-reactive protein (CRP) (R79.82) Active confirmed Vital Signs Heart Rate 70 /min 08/16/2024 Blood pressure diastolic 82 mm Hg 08/16/2024 Oximetry 98 % 08/16/2024 Height 73.75 in 08/16/2024 Blood pressure systolic 130 mm Hg 08/16/2024 Encounters Encounter Location Date Provider Diagnosis [address] [id number] 01/30/2024 Donta Olivas Abdominal distension (gaseous) R14.0 ; Irritable bowel syndrome with diarrhea K58.0 ; Exercise counseling Z71.82 ; Person consulting for explanation of examination or test findings Z71.2 ; Dietary counseling and surveillance Z71.3 ; Other intestinal malabsorption K90.89 and Other specified functional intestinal disorders K59.[address] [id number] 02/22/2024 Shirley Cas Abdominal distension (gaseous) R14.0 ; Irritable bowel syndrome with diarrhea K58.0 ; Other intestinal malabsorption K90.89 and Other specified functional intestinal disorders K59.[address] [id number] 05/14/2024 Donta Olivas Impaired fasting glucose R73.01 ; Elevation of levels of liver transaminase levels R74.01 ; Person consulting for explanation of examination or test findings Z71.2 and Dietary counseling and surveillance Z71.[address] [id number] 08/16/2024 America Knowles Other sites of candidiasis B37.89 ; Bacterial intestinal infection, unspecified A04.9 ; Dietary counseling and surveillance Z71.3 and Person consulting for explanation of examination or test findings Z71.[address] [id number] 04/17/2024 Donta Olivas Homocystinuria E72.1 1 ; Mixed hyperlipidemia E78.2 ; Other fatigue R53.83 ; Elevated blood-pressure reading, without diagnosis of hypertension R03.0 ; Candidal enteritis B37.82 ; Unspecified abnormal finding in specimens from other organs, systems and tissues R89.9 ; Abnormal level of hormones in specimens from other organs, systems and tissues R89.1 and Testicular hypofunction E29.[address] [id number] 05/23/2024 Donta Olivas Candidal enteritis B37.[address] [id number] 08/02/2024 Donta Olivas [address] [id number] 10/28/2024 Donta Olivas Candidal enteritis B37.[address] [id number] 04/19/[address] [id number] 06/05/[address] [id number] 07/26/2024 Donta Olivas Other fatigue R53.83 ; Bitten or stung by nonvenomous insect and other nonvenomous arthropods, initial encounter W57.XXXA ; Lyme disease, unspecified A69.20 and Pain in unspecified joint M25.[address] [id number] 10/12/2024 Donta Olivas [address] [place] [address] 10/12/2024 Donta Olivas Assessments Encounter Date Diagnosis (ICD Code) Assessment Notes Treatment Notes Treatment Clinical Notes Section Notes 01/30/2024 Irritable bowel syndrome with diarrhea (ICD-10 [...] of SIBO. Correlated with clinical presentation at [facility]. 02/22/2024 Abdominal distension (gaseous) (ICD-10 - R14.0) Max levels: Methane (through all) -7 Hydrogen (through 120m) -19 Results not suggestive of SIBO. Correlated with clinical presentation at [facility]. 04/17/2024 Homocystinuria (ICD-10 - E72.11) 05/14/2024 [...] may have contributed to RUQ pain. 07/26/2024 Other fatigue (ICD-10 - R53.83) 08/16/2024 [...] Olivas. 10/28/2024 Candidal enteritis (ICD-10 - B37.82) 05/23/2024 Candidal enteritis (ICD-10 - B37.82) 08/16/2024 Dietary [...] assess need for stomach pH support. 01/30/2024 Person consulting for explanation of examination [...] alternatives ... patient presents to review symptoms. 01/30/2024 Other Consent obtained. Time spent preparing [...] SULFATE 07/27/2021 VITAMIN B12/FOLATE, SERUM PANEL 07/28/19 22 FERRITIN 09/29/2021 T4, FREE 07/27/2021 CORTISOL, A.M. [...] 01/30/2024 Next Appt Details Provider Name:Donta Downs [facility] [place]/20[place] 11:30:00 AM, [address] [facility], [address], [place], [address], Insurance Providers Payer Name Payer Address Payer Phone Subscriber Number Group Number Insured Name Patient Relationship to Insured Coverage Start Date Coverage End Date [facility] [address] [place], [place] [id number] [phone] [id number] Pacheco Bonner Self - patient is the insured Medical (General) History Surgical History Surgery Date(Month/Year) Tendon repair surgery 07/01/2020
== END 2024-12-12 09:01 | disposition home or self-care (01) ==
LOC: HO.HMCH 08:29
PROVIDERS: PCP Internal Medicine; Visit Provider Internal Medicine
DX: Z00.00 Encounter for general adult medical examination without abnormal findings (principal)

== ENCOUNTER 2024-12-27 11:16 | Outpatient (REF) | payer OTHER, SELFPAY ==
--- OUTSIDE RECORDS SUMMARY | 2024-04-23 07:30 | XMS_ITS ---
Author Organization [facility] Address [address] [place] [phone] Care Team Providers Care Garden Machinery Mechanic Name Role Phone Donta Olivas [phone] REASON FOR VISIT ROF Encounters Encounter Location Date Provider Diagnosis [address] [id number] 04/23/2024 Donta Olivas Plan Of Treatment Next Appt Details Provider Name:[place] [facility] [place] 12:30:00 PM, [address] [facility], [address], [place], [address], Progress Notes * Pacheco MORRISON B:1985 (39 yo M)Acc No.[id number]:04/23/2024 Progress Notes Patient: Cornelia CORTEZATULJosrsmiley Rayael Provider: Gene Olivas ND :1985 A ge:38 Y S ex:Male Date:04/23/2024 Address:[address] [place], [place] [phone] Subjective: * Chief Complaints: * 1 . ROF. * Medical History: Objective: * Vitals: Assessment: Plan: * Treatment: * * Electronic signature of Wai Olivas ND on 12/27/2024 at 02:03 PM EDT Sign off status: Pending * Provider: Gene Olivas ND Date: 0 04/23/2024 Generated for Zeferino bingham/Lawrence/Milton on: 1 02:03 PM EDT
--- OUTSIDE RECORDS SUMMARY | 2024-08-12 11:30 | XMS_ITS ---
Author Organization [facility] Address [address] [place] [phone] Care Team Providers Care Head Bander And Liner Operator Name Role Phone Donta Olivas [phone] REASON FOR VISIT ROF labs Encounters Encounter Location Date Provider Diagnosis [address] [phone] 08/12/2024 Donta Olivas Plan Of Treatment Next Appt Details Provider Name:Donta Downs [facility], 04/07/2025 12:30:00 PM, 1 [facility], [address], [place], [address], Progress Notes * Pacheco MORRISON B:1985 (39 yo M)Acc No.[id number]:08/12/2024 Patient: Pacheco VILLA Provider: Gene Olivas ND :1985 A ge:38 Y S ex:Male Date:08/12/2024 Address:[address] [place], [place] [id number] Subjective: * Chief Complaints: * 1 . ROF labs. * Medical History: Objective: * Vitals: Assessment: Plan: * Treatment: * * Electronic signature of Wai Olivas ND on 12/27/2024 at 02:03 PM EDT Sign off status: Pending * Provider: Gene Olivas ND Date: 0 08/12/2024 Generated for Zeferino bingham/Lawrence/Milton on: 1 02:03 PM EDT
--- OUTSIDE RECORDS SUMMARY | 2024-10-14 11:00 | XMS_ITS ---
Author Organization [facility] Address [address] [place] [phone] Care Team Providers Care Instructional Support Technician Name Role Phone Donta Olivas Unavailable [phone] Allergies No Known Allergies REASON FOR VISIT rof labs Medications Medication SIG (Take, Route, Fr equency, Duration) Notes Start Date End Date Status Fluconazole 100 MG 1 tablet Orally greta y; Duration: 30 days Unknown Encounters Encounter Location Date Provider Diagnosis [address] [place] [address] 10/14/2024 Donta Olivas Assessments Encounter Date Diagnosis [...] Treatment Next Appt Details Provider Name:Donta Downs [facility] [place], 04/07/2025 12:30:00 PM, 1 [facility], [address], [place], [address], Progress Notes * Pacheco MORRISON B:1985 (39 yo M)Acc No.[id number]:10/14/2024 Progress Notes Patient: Cornelia Pacheco GOLDSMITH Provider: Gene ginna KWAN Olivas :1985 A ge:39 Y S ex:Male Date:10/14/2024 Address:[address] [place] [address] Subjective: * Chief Complaints: * 1 . [...] turkey, etc. No sugar. - IQ Bars, [place] Bars, Perfect Bars a re plant-based protein [...] stress, cardiovascular health, and blood pressure. - [place]-3. - Vitamin D3 + K2. https://Metropia.Soft Machines.SyncSum/welcome/cnhp ___ HCL challenge test (don't do this [...] help, can continue with... - Betaine HCl ([employer]- get this supplement and stay at the [...] of Wai Olivas ND on 12/27/2024 at 02:02 PM EDT Sign off status: Pending * Provider: Gene Olivas ND Date: 0 10/14/2024 Generated for Zeferino bingham/Lawrence/Milton on: 02:02 PM EDT History and Physical Notes * [...]
--- OUTSIDE RECORDS SUMMARY | 2024-12-23 07:30 | XMS_ITS ---
Author Organization [facility] Address [address] [place] [id number] Care Team Providers Care Java Gra[employer] Developer Name Role Phone SaraDonta awan Unavailable [phone] Allergies No Known Allergies REASON FOR VISIT ROF Labs Medications Medication SIG (Take, Route, Fr equency, Duration) Notes Start Date End Date Status Fluconazole 100 MG 1 tablet Orally greta y; Duration: 30 days Unknown Encounters Encounter Location Date Provider Diagnosis [address] [place] [address] 12/23/2024 Donta Olivas Candidal enteritis B37.82 ; Heartburn R12 ; Person consulting for explanation of examination or test findings Z71.2 ; Other allergic rhinitis J30.89 ; Allergy, unspecified, sequela T78.40XS ; Dietary counseling and surveillance Z71.3 and Other fatigue R53.83 Assessments Encounter Date Diagnosis (ICD Code) Assessment Notes Treatment Notes Treatment Clinical Notes Section Notes 12/23/2024 Candidal enteritis (ICD-10 - B37.82) This is a 39 yo male pt presenting in-office for ROF of recent labs. Results reviewed and discussed during the visit. A lot of allergy sxs. Swelling in throat and face. Hard to breathe and swallow. Pressure in cheeks. Benedryl helps. Really bad joint pain fluconazole. Loose stools. Lost 15 lbs from anti-sam diet. Bloating went away. Carbs cause bloating. Reflux less frequent. Did not do HCl challenge. Labs reveal: Sam Immune Complex 2.26 H Pt to resume undecylenic acid for antifungal actions. Reiterated for pt to complete HCl challenge to assess stomach acid levels, need for stomach pH support, as it can be etiology for heartburn, as well as predisposing factor to persistant sam. Labs ordered to assess respiratory allergies. Lab order will also monitor male hormones for fertility concerns. 12/23/2024 Heartburn (ICD-10 - R12) This is a 39 yo male pt presenting in-office for ROF of recent labs. Results reviewed and discussed during the visit. A lot of allergy sxs. Swelling in throat and face. Hard to breathe and swallow. Pressure in cheeks. Benedryl helps. Really bad joint pain fluconazole. Loose stools. Lost 15 lbs from anti-sam diet. Bloating went away. Carbs cause bloating. Reflux less frequent. Did not do HCl challenge. Labs reveal: Sam Immune Complex 2.26 H Pt to resume undecylenic acid for antifungal actions. Reiterated for pt to complete HCl challenge to assess stomach acid levels, need for stomach pH support, as it can be etiology for heartburn, as well as predisposing factor to persistant sam. Labs ordered to assess respiratory allergies. Lab order will also monitor male hormones for fertility concerns. 12/23/2024 Person consulting for explanation of examination or test findings (ICD-10 - Z71.2) This is a 39 yo male pt presenting in-office for ROF of recent labs. Results reviewed and discussed during the visit. A lot of allergy sxs. Swelling in throat and face. Hard to breathe and swallow. Pressure in cheeks. Benedryl helps. Really bad joint pain fluconazole. Loose stools. Lost 15 lbs from anti-sam diet. Bloating went away. Carbs cause bloating. Reflux less frequent. Did not do HCl challenge. Labs reveal: Sam Immune Complex 2.26 H Pt to resume undecylenic acid for antifungal actions. Reiterated for pt to complete HCl challenge to assess stomach acid levels, need for stomach pH support, as it can be etiology for heartburn, as well as predisposing factor to persistant sam. Labs ordered to assess respiratory allergies. Lab order will also monitor male hormones for fertility concerns. 12/23/2024 Other allergic rhinitis (ICD-10 - J30.89) This is a 39 yo male pt presenting in-office for ROF of recent labs. Results reviewed and discussed during the visit. A lot of allergy sxs. Swelling in throat and face. Hard to breathe and swallow. Pressure in cheeks. Benedryl helps. Really bad joint pain fluconazole. Loose stools. Lost 15 lbs from anti-sam diet. Bloating went away. Carbs cause bloating. Reflux less frequent. Did not do HCl challenge. Labs reveal: Sam Immune Complex 2.26 H Pt to resume undecylenic acid for antifungal actions. Reiterated for pt to complete HCl challenge to assess stomach acid levels, need for stomach pH support, as it can be etiology for heartburn, as well as predisposing factor to persistant sam. Labs ordered to assess respiratory allergies. Lab order will also monitor male hormones for fertility concerns. 12/23/2024 Allergy, unspecified, sequela (ICD-10 - T78.40XS) This is a 39 yo male pt presenting in-office for ROF of recent labs. Results reviewed and discussed during the visit. A lot of allergy sxs. Swelling in throat and face. Hard to breathe and swallow. Pressure in cheeks. Benedryl helps. Really bad joint pain fluconazole. Loose stools. Lost 15 lbs from anti-sam diet. Bloating went away. Carbs cause bloating. Reflux less frequent. Did not do HCl challenge. Labs reveal: Sam Immune Complex 2.26 H Pt to resume undecylenic acid for antifungal actions. Reiterated for pt to complete HCl challenge to assess stomach acid levels, need for stomach pH support, as it can be etiology for heartburn, as well as predisposing factor to persistant sam. Labs ordered to assess respiratory allergies. Lab order will also monitor male hormones for fertility concerns. 12/23/2024 Dietary counseling and surveillance (ICD-10 - Z71.3) This is a 39 yo male pt presenting in-office for ROF of recent labs. Results reviewed and discussed during the visit. A lot of allergy sxs. Swelling in throat and face. Hard to breathe and swallow. Pressure in cheeks. Benedryl helps. Really bad joint pain fluconazole. Loose stools. Lost 15 lbs from anti-sam diet. Bloating went away. Carbs cause bloating. Reflux less frequent. Did not do HCl challenge. Labs reveal: Sam Immune Complex 2.26 H Pt to resume undecylenic acid for antifungal actions. Reiterated for pt to complete HCl challenge to assess stomach acid levels, need for stomach pH support, as it can be etiology for heartburn, as well as predisposing factor to persistant sam. Labs ordered to assess respiratory allergies. Lab order will also monitor male hormones for fertility concerns. 12/23/2024 Other fatigue (ICD-10 - R53.83) This is a 39 yo male pt presenting in-office for ROF of recent labs. Results reviewed and discussed during the visit. A lot of allergy sxs. Swelling in throat and face. Hard to breathe and swallow. Pressure in cheeks. Benedryl helps. Really bad joint pain fluconazole. Loose stools. Lost 15 lbs from anti-sam diet. Bloating went away. Carbs cause bloating. Reflux less frequent. Did not do HCl challenge. Labs reveal: Sam Immune Complex 2.26 H Pt to resume undecylenic acid for antifungal actions. Reiterated for pt to complete HCl challenge to assess stomach acid levels, need for stomach pH support, as it can be etiology for heartburn, as well as predisposing factor to persistant sam. Labs ordered to assess respiratory allergies. Lab order will also monitor male hormones for fertility concerns. 12/23/2024 Other Consent obtained. Time spent preparing to see the patient: 5 min Appointment Start time: Donta Olivas 12/23/2024 11:33:41 AM EDT > End time: Donta Olivas 12/23/2024 12:11:46 PM EDT > Post appointment time documenting clinical information in the medical record & care coordination: 5 min Total Time: 48 min performing a medically appropriate examination and/or evaluation counseling and educating the patient on etiology, results, and management of health concerns ordering supplementation s, tests, or procedures and explaining risks, benefits, and alternatives This is a 39 yo male pt presenting in-office for ROF of recent labs. Results reviewed and discussed during the visit. A lot of allergy sxs. Swelling in throat and face. Hard to breathe and swallow. Pressure in cheeks. Benedryl helps. Really bad joint pain fluconazole. Loose stools. Lost 15 lbs from anti-sam diet. Bloating went away. Carbs cause bloating. Reflux less frequent. Did not do HCl challenge. Labs reveal: Sam Immune Complex 2.26 H Pt to resume undecylenic acid for antifungal actions. Reiterated for pt to complete HCl challenge to assess stomach acid levels, need for stomach pH support, as it can be etiology for heartburn, as well as predisposing factor to persistant sam. Labs ordered to assess respiratory allergies. Lab order will also monitor male hormones for fertility concerns. Plan Of Treatment Pending Test Test Name Order Date RESPIRATORY ALLERGY PROFILE REGION I TESTOSTERONE, TOTAL AND FREE AND SEX HOR LINDA BINDING GLOBULIN 12/23/2024 DIHYDROTESTOSTERONE, FREE, SERUM 025 Next Appt Details Follow Up: 3 Months, Reason: ROF labs [place] [facility] [place] 12:30:00 PM, [address] [facility], [address], [place], [address], Progress Notes * Pacheco MORRISON B:1985 (39 yo M)Acc No.[id number]:12/23/2024 Progress Notes Patient: Cornelia SRUTHIDANYATUL Pacheco Rayael Provider: Gene Olivas ND :1985 A ge:39 Y S ex:Male Date:12/23/2024 Address:[address] [place] [address] Subjective: * Chief Complaints: * R OF Labs * HPI: C C1: CC// ROF labs ___ 12/23/2024 Donta Olivas 12/23/2024 11:33:41 AM EDT > Donta Olivas 12/23/2024 12:11:46 PM EDT > This pt presents in-office for ROF of recent labs. Results reviewed and discussed during the visit. A lot of allergy sxs. Swelling in throat and face. Hard to breathe and swallow. Pressure in cheeks. Benedryl helps. Really bad joint pain fluconazole. Loose stools. Lost 15 lbs from anti-sam diet. Bloating went away. Carbs cause bloating. Reflux less frequent. Did not do HCl challenge. * ROS: G eneral/Constitutional: Patient denies f ever , chills . A llergy/Immunology: Patient complaining of c ongestion,hives. R espiratory: Patient denies s hortness of breath. C ardiovascular: Patient denies c hest pain, fluid accumulation in the legs.? G astrointestinal: Patient complaining of h eartburn. N eurologic: Patient denies d ifficulty speaking , loss of strength.? * Medical History: * Surgical History: T endon repair surgery 07/01/2020 * Hospitalization/Major Diagno stic Procedure: N o Hospitalization History. * Family History: N o Family History documented.. * Social History: t obacco: denies current or past use etoh: denies. * Medications: U nknownFluconazole 100 MG Tablet 1 tablet Orally daily Medication List reviewed and reconciled with the patientUnknown Fluconazole 100 MG Tablet 1 tablet Orally daily Medication List reviewed and reconciled with the patient * Allergies: N .K.D.A.no[Allergies Verified] Objective: * Vitals: * Examination: G eneral [...] PSYCH: a lert, oriented. Assessment: * Assessment: 1. C andidal enteritis - B37.82 (Primary) 2 . H eartburn - R12 ?3. P erson consulting for explanation of examination or test findings - Z71.2 ?4. O ther allergic rhinitis - J30.89 5 . A llergy, unspecified, sequela - T78.40XS 6 . D ietary counseling and surveillance - Z71.3 7 .?Other fatigue - R53.83 This is a 39 yo male pt pres enting in-office for ROF of recent labs. Results reviewed and discussed during the visit. A lot of allergy sxs. Swelling in throat and face. Hard to breathe and swallow. Pressure in cheeks. Benedryl helps. Really bad joint pain fluconazole. Loose stools. Lost 15 lbs from anti-sam diet. Bloating went away. Carbs cause bloating. Reflux less frequent. Did not do HCl challenge. Labs reveal: Sam Immune Complex 2.26 H Pt to resume undecylenic acid for antifungal actions. Reiterated for pt to complete HCl challenge to assess stomach acid levels, need for stomach pH support, as it can be etiology for heartburn, as well as predisposing factor to persistant sam. Labs ordered to assess respiratory allergies. Lab order will also monitor male hormones for fertility concerns. Plan: * Treatment: 2. O ther fatigue L AB: RESPIRATORY ALLERGY PROFILE REGION I L AB: TESTOSTERONE, TOTAL AND FREE AND SEX HORMONE BINDING GLOBULIN L AB: DIHYDROTESTOSTERONE, FREE, SERUM 3. O thers Clinical Notes: Consent obtained. Time spent preparing to see the patient: 5 min Appointment Start time: Donta Olivas 12/23/2024 11:33:41 AM EDT > End time: Donta Olivas 12/23/2024 12:11:46 PM EDT > Post appointment time documenting clinical information in the medical record &care coordination: 5 min Total Time: 48 min performing a medically appropriate examination and/or evaluation counseling and educating the patient on etiology, results, and management of health concerns ordering supplementations, tests, or procedures and explaining risks, benefits, and alternatives * Procedure Codes: * Preventive Medicine: H CL challenge test (don't do this test on [...] help, can continue with... - Betaine HCl (Siterra)- get this supplement and stay at the highest dose you did not experience burning, or at the full 4 tablet dose if no burning was experienced to support stomach acid - If you develop any burning, back down on the dosage - can use with bigger meals, a smaller amount can be used with smaller meals if this affects you negatively. ___ Supplements: Add: - Histamine Support by [employer] a Day AKA Natural D-Hist by [employer]: Take 2 capsules 1-3x daily. Resume: - Undecylenic Acid by Ida: Take 3-5 softgels 3x daily, away from food. Continue: - Adrenal Support by [employer]: Take 2 capsules first thing in the morning, within 1 hour of waking, ideally on empty stomach if well tolerated. Can take a second dose within 5 hours of waking, ie between 10am-12 noon. - BCQ by [employer]: Take 2 capsules 2-3x daily to reduce inflammation and provide anti-oxidant support. - Men's . - Homocysteine Nutrients by [employer]: Take 1 daily to lower homocysteine. Contains methylated B vitamins needed for methylation: B2 (Riboflavin), B6, Folate, and B12, but no Niacin, which dumps methyl groups, and also contains the methyl donor trimethylglycine (TMG AKA Betaine). - Protosorb Magnesium (Magnesium L-Threonate) by [employer] Life Balance - Take 1 capsule in the morning, and 2 capsules in the evening for stress, cardiovascular health, and blood pressure. - Gilbert-3. - Vitamin D3 + K2. [email or web address] * Follow Up: 3 Months (Reason: ROF labs) * * Sign off status: Completed true * Provider: Gene Olivas ND Date: Generated for Zeferino bingham/Lawrence/Milton on: 02:03 PM EDT History and Physical Notes * [...]
--- OUTSIDE RECORDS SUMMARY | 2024-12-27 14:03 | XMS_ITS | Patient Health Record ---
Author Organization [facility] Address [address] [place] [phone] Care Team Providers Care Fashion Consultant Selling Name Role Phone Donta Olivas Unavailable [phone] Shirley Cardozo DO Unavailable [phone] America Knowles Unavailable [phone] Allergies No Known Allergies Results Component Value Reference Range Notes CARDIO IQ(R) INSULIN RESISTA NCE PANEL WITH SCORE Reviewed date:05/30/2024 08:43:51 AM Interpretation: Performing Lab:E[facility], [facility],[address] [facility] Conchis Kebede MD,PhD,STEVE Notes/Report: Received Date: 0; 0; 0; 0; 0; 0; 0; 0; 0; 0; 0; 0 FASTING:YES PATIENT REFUSED SOME TESTING; PATIENT ENCOURAGED FASTING: YES INSULIN, INTACT, LC/MS/MS 12 < OR = 16 uIU/m L Insulin concentration can be converted to pmol/L by applying the conversion factor: 1 uIU/mL = 5.97 pmol/L For additional information, please refer to http://education.[employer].com/faq/LKF099 (This link is being provided for informational/educational purposes only.) This test was developed and its analytical performance characteristics have been determined by [employer]. It has not been cleared or approved [...] for apparently healthy individuals. J Endocr Soc. 2018;2(9):4982-0736). For additional information, please refer to http://education.[employer].com/faq/WZY481 (This link is being provided for informational/educational purposes only.) This test was developed and its analytical performance characteristics have been determined by [employer]. It has not been cleared or approved by the FDA. This assay has been validated pursuant to the CLIA regulations and is used for clinical purposes. SAM IMMUNE COMPLEX Reviewed date:08/09/2024 12:17:53 PM Interpretation: Performing Lab:AID[facility], [employer] [address] , [place] Ofe Singh PHD,HCLD(ABB) Notes/Report: Received Date: [id number] 0 FASTING:NO FASTING: NO SAM IMMUNE COMPLEX 2.03 <0.90 Index Negative <0.90 Inconclusive > = 0.90 to < = 1.09 Positive > = 1.10 The performance characteristics of the listed assay was validated by [facility]. The [place] FDA has not approved or cleared this test. The results of this assay can be used for clinical diagnosis without FDA approval. [facility] is a CLIA certified, CAP accredited laboratory for performing high complexity assays such as this one. Cardio IQ(R) Oxidized LDL Reviewed date:05/30/2024 08:43:51 AM Interpretation: Performing Lab:[facility] [place] [address], [address], [place] Karina Porter Notes/Report: Received Date: [id number] 0; 0; 0; 0; 0; 0; 0; [...] (Reference: 1-Marycruz et al. KATELYN. 2008; 299: 7452-8060.) Cardio IQ (R) ADMA and SDMA Reviewed date:05/30/2024 08:43:51 AM Interpretation: Performing Lab:[facility], [address], [place] Karina Porter Notes/Report: Received Date: [id number] 0; 0; 0; 0; 0; 0; 0; 0; 0; 0; 0; 0 FASTING:YES PATIENT REFUSED SOME TESTING; PATIENT ENCOURAGED FASTING: YES ADMA 104 <100 ng/mL This test was developed and its analytical performance characteristics have been determined by [facility]. It has not been cleared or [...] al. J Am Heart Assoc. 2015; 4: [id number]). SDMA 81 73-135 ng/mL CARDIO IQ(R) LP PLA2 ACTIVIT Y Reviewed date:05/30/2024 08:43:51 AM Interpretation: Performing Lab:Valente, [facility]-[address], [facility] [address], [place]hlqgzlfrUO[address] Karina Porter Notes/Report: Received Date: 0; 0; 0; 0; 0; 0; 0; 0; 0; 0; 0; 0 FASTING:YES PATIENT REFUSED SOME TESTING; PATIENT ENCOURAGED FASTING: YES LP PLA2 ACTIVITY 136 <124 nmol/min/mL Relative Risk: Optimal <=123 nmol/min/mL; High >123 nmol/min/mL. This test was developed and its analytical performance characteristics have been determined by [employer]. It has not been cleared or approved by the FDA. This assay has been validated pursuant to the CLIA regulations and is used for clinical purposes. See Note 1 Note 1 This test was developed and its analytical performance characteristics have been determined by [employer]. It has not been cleared or approved by the FDA. This assay has been validated pursuant to the CLIA regulations and is used for clinical purposes. CARDIO IQ(R) LIPID PANEL WIT H REFLEX TO DIRECT LDL Reviewed date:05/30/2024 08:43:51 AM Interpretation: Performing Lab:[facility] [address], [facility] [address], IkkrqvqgnRE[address] Karina Porter Notes/Report: Received Date: 0; 0; [...] LDL-C. Rc WARREN et al. KATELYN. 2013;310(19): 2436-1259 (http://education.[employer].com/faq/GVX425) LDL-C is now calculated using the Stacie calculation, which is a validated novel method providing better accuracy than the Friedewald equation in the estimation of LDL-C. Rc WARREN et al. KATELYN. 2013;310(19): 9823-6215 (http://education.[employer].com/faq/VGV291) CHOL/HDLC RATIO 5.6 <5.0 calc NON HDL CHOLESTEROL 209 <130 mg/dL (calc) For patients with diabetes plus 1 major ASCVD risk factor, treating to a non-HDL-C goal of <100 mg/dL (LDL-C of <70 mg/dL) is considered a therapeutic option. CARDIO IQ(TM)HOMOCYSTEINE CA RDIOVASCULAR Reviewed date:05/30/2024 08:43:51 AM Interpretation: Performing Lab:Valente, [facility] [place], [address], [place]PG[address] Karina Porter Notes/Report: Received Date: [id number] 0; 0; 0; 0; 0; 0; 0; [...] nitrous oxide. Sandor Torres, et al. Jael [employer] Commissioner Med. 1999;131(5):331-9. Homocysteine is increased by functional deficiency of folate or vitamin B12. Testing for methylmalonic acid differentiates between these deficiencies. Other causes of increased homocysteine include renal failure, folate antagonists such as methotrexate and phenytoin, and exposure to nitrous oxide. Sandor Torres, et al., Jael [employer] Commissioner Med. 1999;131(5):331-9. CARDIO IQ(TM) APOLIPOPROTEIN B Reviewed date:05/30/2024 08:43:51 AM Interpretation: Performing Lab:Valente, [facility] [place], [address], [place]defzncqaVY[address] Karina Porter Notes/Report: Received Date: 0; 0; [...] Reviewed date:05/30/2024 08:43:51 AM Interpretation: Performing Lab:Valente, [facility], [address], [place]ssfbss[place]M[address] Karina Porter Notes/Report: Received Date: 0; 0; [...] change in test platforms from the [employer] to the Jennifer lam c503 may have shifted HbA1c results compared to historical results. Based on laboratory validation testing conducted at [facility], the Jennifer platform relative to the Knox [...] Reviewed date:05/30/2024 08:43:51 AM Interpretation: Performing Lab:[facility] [facility], [address], [place] Karina Ramosari Notes/Report: Received Date: [id number] 0; 0; 0; 0; 0; 0; 0; [...] for Disease Control and Prevention and the [place] [employer]. Circulation 2003; 107(3): 499-511. For [...] for Disease Control and Prevention and the [place]. Circulation 2003; 107(3): 499-511. CARDIO IQ(TM) LIPOPROTEIN (a ) Reviewed date:05/30/2024 08:43:50 AM Interpretation: Performing Lab:Valente [facility].-[address], [address], [place] Karina Porter Notes/Report: Received Date: 0; 0; 0; 0; 0; 0; 0; 0; 0; 0; 0; 0 FASTING:YES PATIENT REFUSED SOME TESTING; PATIENT ENCOURAGED FASTING: YES LIPOPROTEIN (a) <10 <75 nmol/L Verified by repeat analysis. Risk: Optimal <75 nmol/L; Moderate 75-125 nmol/L; High >125 nmol/L. Cardiovascular event risk category cut points (optimal, moderate, high) are based on Nico Carvalho [facility] 2017;69:692-711. 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 confirmed Problem Mixed hyperlipidemia (108943592) Mixed hyperlipidemia (E78.2) Active confirmed Problem Tension-type headach e (026891645) Tension-type headache, unspecified, not intractable (G44.209) Active confirmed Problem Allergic rhinitis du e to food (497528993) Allergic rhinitis due to food (J30.5) Active confirmed Problem Chronic sinusitis (07118946) Chronic sinusitis, unspecified (J32.9) Active confirmed Problem Irritable bowel syndrome with diarrhea (561177290) Irritable bowel syndrome with diarrhea (K58.0) Active confirmed Problem Intestinal malabsorption (182546655) Other intestinal malabsorption (K90.89) Active confirmed Problem C-reactive protein abnormal (333141194) Elevated C-reactive protein (CRP) (R79.82) Active confirmed Problem Hormone abnormality (43909492) Abnormal level of hormones in specimens from other organs, systems and tissues (R89.1) Active confirmed Problem Histopathology findi ng (722395399) Unspecified abnormal finding in specimens from other organs, systems and tissues (R89.9) Active confirmed Problem Allergic disposition (finding) (571547083) Allergy, unspecified, sequela (T78.40XS) Active confirmed Vital Signs Heart Rate 70 /min 08/16/2024 Blood pressure diastolic 82 mm Hg 08/16/2024 Oximetry 98 % 08/16/2024 Height 73.75 in 08/16/2024 Blood pressure systolic 130 mm Hg 08/16/2024 Encounters Encounter Location Date Provider Diagnosis [address] [id number] 01/30/2024 Donta Olivas Abdominal distension (gaseous) R14.0 ; Irritable bowel syndrome with diarrhea K58.0 ; Exercise counseling Z71.82 ; Person consulting for explanation of examination or test findings Z71.2 ; Dietary counseling and surveillance Z71.3 ; Other intestinal malabsorption K90.89 and Other specified functional intestinal disorders K59.[address] [id number] 02/22/2024 Shirley Cardozo Abdominal distension (gaseous) R14.0 ; Irritable bowel syndrome with diarrhea K58.0 ; Other intestinal malabsorption K90.89 and Other specified functional intestinal disorders K59.[address] [id number] 05/14/2024 Donta Olivas Impaired fasting glucose R73.01 ; Elevation of levels of liver transaminase levels R74.01 ; Person consulting for explanation of examination or test findings Z71.2 and Dietary counseling and surveillance Z71.[address] [id number] 08/16/2024 America Knowles Other sites of candidiasis B37.89 ; Bacterial intestinal infection, unspecified A04.9 ; Dietary counseling and surveillance Z71.3 and Person consulting for explanation of examination or test findings Z71.2 [facility] [address] [facility] [address] [place] [address] 12/23/2024 Dontasuleiman Olivas Candidal enteritis B37.82 ; Heartburn R12 ; Person consulting for explanation of examination or test findings Z71.2 ; Other allergic rhinitis J30.89 ; Allergy, unspecified, sequela T78.40XS ; Dietary counseling and surveillance Z71.3 and Other fatigue R53.[address] [id number] 04/17/2024 Donta Olivas Homocystinuria E72.1 1 ; Mixed hyperlipidemia E78.2 ; Other fatigue R53.83 ; Elevated blood-pressure reading, without diagnosis of hypertension R03.0 ; Candidal enteritis B37.82 ; Unspecified abnormal finding in specimens from other organs, systems and tissues R89.9 ; Abnormal level of hormones in specimens from other organs, systems and tissues R89.1 and Testicular hypofunction E29.[address] [id number] 05/23/2024 Donta Olivas Candidal enteritis B37.[address] [id number] 08/02/2024 Donta Kennedycci [address] [id number] 10/28/2024 Donta Olivas Candidal enteritis B37.[address] [id number] 04/19/2024 Donta Ruizi [address] [id number] 06/05/[address] [id number] 07/26/2024 Donta Olivas Other fatigue R53.83 ; Bitten or stung by nonvenomous insect and other nonvenomous arthropods, initial encounter W57.XXXA ; Lyme disease, unspecified A69.20 and Pain in unspecified joint M25.[address] [id number] 10/12/2024 Donta Olivas [address] [place] [address] 10/12/2024 Donta Olivas Assessments Encounter Date Diagnosis [...] of SIBO. Correlated with clinical presentation at [facility]. 04/17/2024 Homocystinuria (ICD-10 - E72.11) 05/14/2024 [...] Olivas. 10/28/2024 Candidal enteritis (ICD-10 - B37.82) 12/23/2024 Candidal enteritis (ICD-10 - B37.82) This [...] also monitor male hormones for fertility concerns. 07/26/2024 Bitten or stung by nonvenomous insect and other nonvenomous arthropods, initial encounter (ICD-10 - W57.XXXA) 08/16/2024 Dietary counseling and surveillance (ICD-10 - Z71.3) 12/23/2024 Person consulting for explanation of examination [...] also monitor male hormones for fertility concerns. 05/14/2024 Person consulting for explanation of examination [...] examination or test findings (ICD-10 - Z71.2) 12/23/2024 Other allergic rhinitis (ICD-10 - J30.89) [...] also monitor male hormones for fertility concerns. 07/26/2024 Pain in unspecified joint (ICD-10 - [...] support. 04/17/2024 Candidal enteritis (ICD-10 - B37.82) 12/23/2024 Dietary counseling and surveillance (ICD-10 - [...] also monitor male hormones for fertility concerns. 04/17/2024 Unspecified abnormal finding in specimens from [...] This may have contributed to RUQ pain. 12/23/2024 Other Consent obtained. Time spent preparing [...] LIPID PANEL 07/27/2021 FSH AND LH 09/29/2021 RESPIRATORY ALLERGY PROFILE REGION I THYROID PEROXIDASE AND THYROGLOBULIN ANT IBODIES 09/29/2021 TESTOSTERONE, TOTAL AND FREE AND SEX HOR LINDA BINDING GLOBULIN 03/28/2022 TESTOSTERONE, TOTAL AND FREE AND SEX HOR LINDA BINDING GLOBULIN 11/20/2023 TESTOSTERONE, TOTAL AND FREE AND SEX HOR LINDA BINDING GLOBULIN 12/23/2024 TESTOSTERONE, TOTAL AND FREE AND SEX HOR [...] (THYROID STIMULATING IMMUNOGLOBULIN) 09/29/2021 DIHYDROTESTOSTERONE, FREE, SERUM 025 DIHYDROTESTOSTERONE, FREE, SERUM 022 VITAMIN A 07/27/2021 [...] SAM IMMUNE COMPLEX 04/17/2024 SAM IMMUNE COMPLEX 11/20/2023 SAM IMMUNE COMPLEX 03/28/2022 SAM IMMUNE COMPLEX 07/27/2021 SAM IMMUNE COMPLEX 10/28/2024 TICK BORNE DISEASE, ANTIBODY PANEL 09/29 CORTISOL, LC/MS, SALIVA, 3 SAMPLES 09/29 TMAO (TRIMETHYLAMINE N OXIDE) 04/17/2024 GASTROINTESTINAL PATHOGEN PANEL, REAL TI ME PCR 01/30/2024 Next Appt Details Provider Name:Donta Torres Yare[facility] [place], 04/07/2025 12:30:00 PM, [address] [facility], [address], [place], [address], Insurance Providers Payer Name Payer Address Payer Phone Subscriber Number Group Number Insured Name Patient Relationship to Insured Coverage Start Date Coverage End Date [facility] [address] [place], [place] [phone] [id number] Pacheco Bonner Self - patient is the insured Medical (General) History Surgical History Surgery Date(Month/Year) Tendon repair surgery 07/01/2020
[2025-01-03 12:53] LABS: Testosterone, Free 65.0 pg/mL (35.0-155.0)
[2025-01-04 16:43] LABS: Class Alternaria alternata 0; Class Aspergillus fumigatus 0; Class Bermuda Grass 2; Class Birch 2; Class Cat Dander 0; Class Cladosporium herbarum 0; Class Cockroach 2; Class Common Ragweed 2; Class Cottonwood 2; Class Derm. pterony 1; Class Dermatophagoides farinae 2; Class Dog Dander 0; Class Elm 2; Class Maple Box Elder 2; Class Mountain Cedar 2; Class Mouse Urine Protein 0; Class Mugwort 2; Class Oak 2; Class Penicillium crysogenum 0; Class Rough Pigweed 2; Class Sheep Sorrel 2; Class Sycamore 2; Class Timothy Grass 2; Class Walnut Tree 2; Class White Ash 2; Class White Mulberry 2; D002 - IgE D farinae 0.70 kU/L; E001 - IgE Cat Dander <0.10 kU/L; E005 - IgE Dog Dander <0.10 kU/L; G006 - IgE Timothy Grass 1.89 kU/L; I006-IgE Cockroach, German 0.82 kU/L; M002 - IgE Cladosporium herbar <0.10 kU/L; M003 - IgE Aspergillus fumigat <0.10 kU/L; M006 - IgE Alternaria alternat <0.10 kU/L; T001 IgE Maple/Box Elder 1.75 kU/L; T006 - IgE Cedar, Mountain 0.99 kU/L; T007 - IgE Oak, White 1.58 kU/L; T008 IgE Elm, American 1.83 kU/L; T010 - IgE Walnut 1.30 kU/L; T011 - IgE Maple Leaf Sycamore 1.45 kU/L; T014 - IgE Cottonwood 1.50 kU/L; T015 - IgE Ash, White 1.74 kU/L; T070 - IgE White Mulberry 1.21 kU/L; W001 - IgE Ragweed, Short 1.58 kU/L; W006 - IgE Mugwort 1.16 kU/L; W014 IgE Pigweed, Common 1.41 kU/L; W018 IgE Sheep Sorrel 1.64 kU/L
== END 2024-12-27 11:17 | disposition home or self-care (01) ==
LOC: HO.LAB 11:16
PROVIDERS: PCP Internal Medicine; Visit Provider Naturopath
DX: J30.5 Allergic rhinitis due to food (principal); T78.40XS Allergy, unspecified, sequela; R89.1 Abnormal level of hormones in specimens from other organs, systems and tissues; E29.1 Testicular hypofunction; R53.83 Other fatigue; Z01.84 Encounter for antibody response examination
CPT/HCPCS: 36415; 82642; 82785; 84270; 84402; 84403; 86003

== ENCOUNTER 2025-03-01 08:09 | Outpatient (REF) | payer OTHER, SELFPAY ==
--- OUTSIDE RECORDS SUMMARY | 2024-04-23 06:30 | XMS_ITS ---
Author Organization [facility] Address [address] [place] [id number] Care Team Providers Care Puppy Walker Name Role Phone Donta Olivas [phone] REASON FOR VISIT ROF Encounters Encounter Location Date Provider Diagnosis [address] [id number] 04/23/2024 Donta Olivas Plan Of Treatment Next Appt Details Provider Name:Donta Downs [facility] [place], 04/07/2025 12:30:00 PM, [address] [facility], [address], [place], [address], Progress Notes * Pacheco MORRISON B:1985 (39 yo M)Acc No.[id number]:04/23/2024 Progress Notes Patient: Cornelia CORTEZATULJosris Milad Provider: Gene Olivas ND :1985 A ge:38 Y S ex:Male Date:04/23/2024 Address:[address] [place], [place] [phone] Subjective: * Chief Complaints: * 1 . ROF. * Medical History: Objective: * Vitals: Assessment: Plan: * Treatment: * * Electronic signature of Wai Olivas ND on 03/01/2025 at 08:12 AM EST Sign off status: Pending * Provider: Gene Olivas ND Date: 0 04/23/2024 Generated for Zeferino bingham/Lawrence/Milton on: 1 05/02/2024 08:12 AM EST
--- OUTSIDE RECORDS SUMMARY | 2024-08-12 10:30 | XMS_ITS ---
Author Organization [facility] Address [address] [place] [phone] Care Team Providers Care Turkey Farmer Name Role Phone Donta Olivas [phone] REASON FOR VISIT ROF labs Encounters Encounter Location Date Provider Diagnosis [address] [id number] 08/12/2024 Donta Olivas Plan Of Treatment Next Appt Details Provider Name:Donta Downs [facility], 04/07/2025 12:30:00 PM, [address] [facility], [address], [place], [address], Progress Notes * Pacheco MORRISON B:1985 (39 yo M)Acc No.[id number]:08/12/2024 Patient: Pacheco VILLA Provider: Gene Olivas ND :1985 A ge:38 Y S ex:Male Date:08/12/2024 Address:[address] [place], [place] [phone] Subjective: * Chief Complaints: * 1 . ROF labs. * Medical History: Objective: * Vitals: Assessment: Plan: * Treatment: * * Electronic signature of Wai Olivas ND on 03/01/2025 at 08:12 AM EST Sign off status: Pending * Provider: Gene Olivas ND Date: 0 08/12/2024 Generated for Zeferino bingham/Lawrence/Milton on: 1 05/02/2024 08:12 AM EST
--- OUTSIDE RECORDS SUMMARY | 2024-10-14 10:00 | XMS_ITS ---
Author Organization [facility] Address [address] [place] [phone] Care Team Providers Care Manager Provider Relations Name Role Phone Donta Olivas Unavailable [phone] Allergies No Known Allergies REASON FOR VISIT rof labs Medications Medication SIG (Take, Route, Fr equency, Duration) Notes Start Date End Date Status Fluconazole 100 MG 1 tablet Orally greta y; Duration: 30 days Unknown Encounters Encounter Location Date Provider Diagnosis [address] [place] [address] 10/14/2024 Donta Olivas Assessments Encounter Date Diagnosis (ICD Code) Assessment Notes Treatment Notes Treatment Clinical Notes Section Notes 10/14/2024 Other Consent obtained. Time spent preparing to [...] Treatment Next Appt Details Provider Name:Donta Downs [facility] [place], 04/07/2025 12:30:00 PM, 1 [facility], [address], [place], [address], Progress Notes * Pacheco MORRISON B:1985 (39 yo M)Acc No.[id number]:10/14/2024 Progress Notes Patient: Cornelia Pacheco GOLDSMITH Provider: Gene ginna KWAN Olivas :1985 A ge:39 Y S ex:Male Date:10/14/2024 Address:[address] [place] [address] Subjective: * Chief Complaints: * 1 . Rof labs. * HPI: C C1: CC// ROF labs ___ 10/14/2024 This pt presents in-office for ROF of recent labs. Results reviewed and discussed during the visit. ___ 05/14/2024 Donta Olivas 05/14/2024 12:07:06 PM [...] gluten free. Gluten flares up sxs. * ROS: G eneral/Constitutional: Patient denies f ever , chills . R espiratory: Patient denies s hortness of breath. C ardiovascular: Patient denies c hest pain, fluid accumulation in the legs.? N eurologic: Patient denies d ifficulty speaking , loss of strength.? * Medical History: M edical History Verified. * Surgical History: T endon repair surgery 07/01/2020. * Family History: N o Family History documented.. * Social History: t obacco: denies current or past use etoh: denies. * Medications: U nknown Fluconazole 100 MG Tablet 1 tablet Orally daily , Medication List reviewed and reconciled with the patient * Allergies: N .K.D.A. Objective: * Vitals: * Examination: G eneral Examination: GENERAL APPEARANCE: a lert, well hydrated, in no distress .? HEAD: n ormocephalic, atraumatic. EYES: p upils equal, round, reactive to light and accommodation, conjunctiva clear. EARS: n ormal. NOSE: e xternal nose- no gross deformities.. NECK/THYROID: n grace supple, full range of motion, trachea midline. SKIN: n ormal, good turgor,normal hair distribution, warm and dry. LUNGS: n o wheezes, rales, rhonchi. CHEST: n o gross rib deformity, normal shape and expansion.? ABDOMEN: n ondistended. BACK: f ull range of motion, normal. NEUROLOGIC: c ognitive exam grossly normal, cooperative with exam, cranial nerves 2-12 grossly intact, gait normal. PSYCH: a lert, oriented. Assessment: * Assessment: ... patient presents to review symptoms. Plan: * Treatment: * Preventive Medicine: D iet for Blood Sugar and Overall Health: - [...] turkey, etc. No sugar. - IQ Bars, [place] Bars, Perfect Bars a re plant-based protein bars with low carbs - [...] stress, cardiovascular health, and blood pressure. - Jbphh-3. - Vitamin D3 + K2. https://The Social Coin SL.Traka.Meijob/welcome/cnhp ___ HCL challenge test (don't do this [...] help, can continue with... - Betaine HCl ([employer])- get this supplement and stay at the [...] of Wai Olivas ND on 03/01/2025 at 08:11 AM EST Sign off status: Pending * Provider: Gene Olivas ND Date: 0 10/14/2024 Generated for Zeferino bingham/Lawrence/Milton on: 1 05/02/2024 08:11 AM EST History and Physical Notes * [...] intact, gait normal SKIN: normal, good turgor, normal hair distribution, warm and dry BACK: full range of motion , normal PSYCH: alert, oriented
--- OUTSIDE RECORDS SUMMARY | 2025-03-01 08:12 | XMS_ITS | Patient Health Record ---
Author Organization [facility] Address [address] [place] [id number] Care Team Providers Care Director Of Casino Name Role Phone Donta Olivas Unavailable [phone] America Knowles Unavailable [phone] Allergies No Known Allergies Results Component Value Reference Range Notes CARDIO IQ(R) INSULIN RESISTA NCE PANEL WITH SCORE Reviewed date:05/30/2024 08:43:51 AM Interpretation: Performing Lab:[facility], [facility],[address] [facility] Conchis Kebede MD,PhD,STEVE Notes/Report: Received Date: [id number] 0; 0; 0; 0; 0; 0; 0; 0; 0; 0; 0; 0 FASTING:YES PATIENT REFUSED SOME TESTING; PATIENT ENCOURAGED FASTING: YES INSULIN, INTACT, LC/MS/MS 12 < OR = 16 uIU/m L Insulin concentration can be converted to pmol/L by applying the conversion factor: 1 uIU/mL = 5.97 pmol/L For additional information, please refer to http://education.[employer].com/faq/IEP204 (This link is being provided for informational/educational purposes only.) This test was developed and its analytical performance characteristics have been determined by [facility]. It has not been cleared or approved [...] for apparently healthy individuals. J Endocr Soc. 2018;2(9):4789-9247). For additional information, please refer to http://education.[employer].com/faq/ENW720 (This link is being provided for informational/educational purposes only.) This test was developed and its analytical performance characteristics have been determined by [facility]. It has not been cleared or approved by the FDA. This assay has been validated pursuant to the CLIA regulations and is used for clinical purposes. Cardio IQ(R) Oxidized LDL Reviewed date:05/30/2024 08:43:51 AM Interpretation: Performing Lab:[facility] [employer] [employer] [facility].[address] [place] [address], [place] [id number] Karina Porter Notes/Report: Received Date: 0; 0; [...] (Reference: 1-Marycruz et al. KATELYN. 2008; 299: 8792-0565.) Cardio IQ (R) ADMA and SDMA Reviewed date:05/30/2024 08:43:51 AM Interpretation: Performing Lab:[facility] [employer] [facility], [address], [id number] Karina Porter Notes/Report: Received Date: 0; 0; 0; 0; 0; 0; 0; 0; 0; 0; 0; 0 FASTING:YES PATIENT REFUSED SOME TESTING; PATIENT ENCOURAGED FASTING: YES ADMA 104 <100 ng/mL This test was developed and its analytical performance characteristics have been determined by [facility]. It has not been cleared or [...] al. J Am Heart Assoc. 2015; 4: n976181). SDMA 81 73-135 ng/mL CARDIO IQ(R) LP PLA2 ACTIVIT Y Reviewed date:05/30/2024 08:43:51 AM Interpretation: Performing Lab:[facility] [place] [address], [address], [place] Karina Porter Notes/Report: Received Date: 0; 0; 0; 0; 0; 0; 0; 0; 0; 0; 0; 0 FASTING:YES PATIENT REFUSED SOME TESTING; PATIENT ENCOURAGED FASTING: YES LP PLA2 ACTIVITY 136 <124 nmol/min/mL Relative Risk: Optimal <=123 nmol/min/mL; High >123 nmol/min/mL. This test was developed and its analytical performance characteristics have been determined by [employer]. It has not been cleared or approved by the FDA. This assay has been validated pursuant to the CLIA regulations and is used for clinical purposes. See Note 1 Note 1 This test was developed and its analytical performance characteristics have been determined by [employer]. It has not been cleared or approved by the FDA. This assay has been validated pursuant to the CLIA regulations and is used for clinical purposes. CARDIO IQ(R) LIPID PANEL WIT H REFLEX TO DIRECT LDL Reviewed date:05/30/2024 08:43:51 AM Interpretation: Performing Lab:[facility]-[address], [address], [place]SL[address] Karina Porter Notes/Report: Received Date: [id number] 0; 0; 0; 0; 0; 0; 0; [...] LDL-C. Rc SS et al. KATELYN. 2013;310(19): 0204-5113 (http://education.[employer].com/faq/MFA248) LDL-C is now calculated using the Rc-Escalante calculation, which is a validated novel method providing better accuracy than the Friedewald equation in the estimation of LDL-C. Rc SS et al. KATELYN. 2013;310(19): 9147-0645 (http://education.[employer].com/faq/FUM219) CHOL/HDLC RATIO 5.6 <5.0 calc NON HDL CHOLESTEROL 209 <130 mg/dL (calc) For patients with diabetes plus 1 major ASCVD risk factor, treating to a non-HDL-C goal of <100 mg/dL (LDL-C of <70 mg/dL) is considered a therapeutic option. CARDIO IQ(TM)HOMOCYSTEINE CA RDIOVASCULAR Reviewed date:05/30/2024 08:43:51 AM Interpretation: Performing Lab:[facility], [facility] [address], [address], [place] Karina Porter Notes/Report: Received Date: 0; 0; [...] phenytoin, and exposure to nitrous oxide. Sandor J, et al. Jael Deputy [employer] Executive Med. 1999;131(5):331-9. Homocysteine is increased by functional deficiency of folate or vitamin B12. Testing for methylmalonic acid differentiates between these deficiencies. Other causes of increased homocysteine include renal failure, folate antagonists such as methotrexate and phenytoin, and exposure to nitrous oxide. Seljairo Torres, et al., Jael Deputy Chief Executive Med. 1999;131(5):331-9. CARDIO IQ(TM) APOLIPOPROTEIN B Reviewed date:05/30/2024 08:43:51 AM Interpretation: Performing Lab:[facility], [facility] [employer] [address], [place] Karina Porter Notes/Report: Received Date: 0; 0; [...] Reviewed date:05/30/2024 08:43:51 AM Interpretation: Performing Lab:[facility], [employer] [facility], [address], [place] Karina Porter Notes/Report: Received Date: 0; 0; [...] change in test platforms from the [employer] [facility] [employer] [facility] to the Jennifer lam c503 may have shifted HbA1c results compared to historical results. Based on laboratory validation testing conducted at [facility], the Jennifer platform relative to the [employer] [...] Reviewed date:05/30/2024 08:43:51 AM Interpretation: Performing Lab:[facility], [place], [address], [place]fetb[place]F[address] Karina Porter Notes/Report: Received Date: 0; 0; [...] for Disease Control and Prevention and the [place] [employer]. Circulation 2003; 107(3): 499-511. For [...] for Disease Control and Prevention and the [place] Heart Association. Circulation 2003; 107(3): 499-511. CARDIO IQ(TM) LIPOPROTEIN (a ) Reviewed date:05/30/2024 08:43:50 AM Interpretation: Performing Lab:[facility], [facility] [place] [address], [address], [place]rfjdnuKS[address] Karina Porter Notes/Report: Received Date: [id number] 0; 0; 0; 0; 0; 0; 0; 0; 0; 0; 0; 0 FASTING:YES PATIENT REFUSED SOME TESTING; PATIENT ENCOURAGED FASTING: YES LIPOPROTEIN (a) <10 <75 nmol/L Verified by repeat analysis. Risk: Optimal <75 nmol/L; Moderate 75-125 nmol/L; High >125 nmol/L. Cardiovascular event risk category cut points (optimal, moderate, high) are based on Nico Carvalho [facility] 2017;69:692-711. SAM IMMUNE COMPLEX Reviewed date:08/09/2024 12:17:53 PM Interpretation: Performing Lab:[facility], [facility], [place] Ofe Singh PHD,HCLD(ABB) Notes/Report: Received Date: [id number] FASTING:NO FASTING: NO SAM IMMUNE COMPLEX 2.03 <0.90 Index Negative <0.90 Inconclusive > = 0.90 to < = 1.09 Positive > = 1.10 The performance characteristics of the listed assay was validated by [facility]. The [place] FDA has not approved or cleared this test. The results of this assay can be used for clinical diagnosis without FDA approval. 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 confirmed Problem Mixed hyperlipidemia (202131610) Mixed hyperlipidemia (E78.2) Active confirmed Problem Tension-type headach e (545059176) Tension-type headache, unspecified, not intractable (G44.209) Active confirmed Problem Allergic rhinitis du e to food (012843469) Allergic rhinitis due to food (J30.5) Active confirmed Problem Chronic sinusitis (98451220) Chronic sinusitis, unspecified (J32.9) Active confirmed Problem Irritable bowel syndrome with diarrhea (039165446) Irritable bowel syndrome with diarrhea (K58.0) Active confirmed Problem Intestinal malabsorption (787431307) Other intestinal malabsorption (K90.89) Active confirmed Problem C-reactive protein abnormal (606431732) Elevated C-reactive protein (CRP) (R79.82) Active confirmed Problem Hormone abnormality (97702699) Abnormal level of hormones in specimens from other organs, systems and tissues (R89.1) Active confirmed Problem Histopathology findi ng (880591402) Unspecified abnormal finding in specimens from other organs, systems and tissues (R89.9) Active confirmed Problem Allergic disposition (finding) (038206373) Allergy, unspecified, sequela (T78.40XS) Active confirmed Vital Signs Heart Rate 70 /min 08/16/2024 Oximetry 98 % 08/16/2024 Blood pressure diastolic 82 mm Hg 08/16/2024 Height 73.75 in 08/16/2024 Blood pressure systolic 130 mm Hg 08/16/2024 Encounters Encounter Location Date Provider Diagnosis [address] [id number] 05/14/2024 Donta Olivas Impaired fasting glucose R73.01 ; Elevation of levels of liver transaminase levels R74.01 ; Person consulting for explanation of examination or test findings Z71.2 and Dietary counseling and surveillance Z71.[address] [id number] 08/16/2024 America Knowles Other sites of candidiasis B37.89 ; Bacterial intestinal infection, unspecified A04.9 ; Dietary counseling and surveillance Z71.3 and Person consulting for explanation of examination or test findings Z71.[address] [place] [address] 12/23/2024 Donta Olivas Candidal enteritis B37.82 ; Heartburn R12 ; Person consulting for explanation of examination or test findings Z71.2 ; Other allergic rhinitis J30.89 ; Allergy, unspecified, sequela T78.40XS ; Dietary counseling and surveillance Z71.3 and Other fatigue R53.[address] [id number] 04/17/2024 Donta Olivas Homocystinuria E72.1 1 ; Mixed hyperlipidemia E78.2 ; Other fatigue R53.83 ; Elevated blood-pressure reading, without diagnosis of hypertension R03.0 ; Candidal enteritis B37.82 ; Unspecified abnormal finding in specimens from other organs, systems and tissues R89.9 ; Abnormal level of hormones in specimens from other organs, systems and tissues R89.1 and Testicular hypofunction E29.[address] [id number] 05/23/2024 Donta Olivas Candidal enteritis B37.[address] [id number] 08/02/2024 Donta Olivas [address] [id number] 10/28/2024 Donta Olivas Candidal enteritis B37.[address] [id number] 04/19/2024 Donta Olivas [address] [id number] 06/05/2024 Donta Olivas [address] [id number] 07/26/2024 Donta Olivas Other fatigue R53.83 ; Bitten or stung by nonvenomous insect and other nonvenomous arthropods, initial encounter W57.XXXA ; Lyme disease, unspecified A69.20 and Pain in unspecified joint M25.[address] [id number] 10/12/2024 Donta Olivas [address] [place] [address] 10/12/2024 Donta Olivas Assessments Encounter Date Diagnosis (ICD Code) Assessment Notes Treatment Notes Treatment Clinical Notes Section Notes 04/17/2024 Homocystinuria (ICD-10 - E72.11) 05/14/2024 Impaired [...] liberation of free fatty acids, and/or had anti-inflammat ory effect d/t food elimination, but may have [...] liberation of free fatty acids, and/or had anti-inflammat ory effect d/t food elimination, but may have confered burden on pancreas and liver, gallbladder to upregulate production of lipase, elastase, bile. This may have contributed to RUQ pain. 05/23/2024 Candidal enteritis (ICD-10 - B37.82) 07/26/2024 Other fatigue (ICD-10 - R53.83) 08/16/2024 Bacterial intestinal infection, unspecified (ICD-10 - A04.9) 08/16/2024 Other sites of candidiasis (ICD-10 - B37.89) Candidiasis-chr onic and uncontrolled for the past 3 years [...] liberation of free fatty acids, and/or had anti-inflammat ory effect d/t food elimination, but may have confered burden on pancreas and liver, gallbladder to upregulate production of lipase, elastase, bile. This may have contributed to RUQ pain. 04/17/2024 Mixed hyperlipidemia (ICD-10 - E78.2) 04/17/2024 Other fatigue (ICD-10 - R53.83) 05/14/2024 Dietary counseling and surveillance (ICD-10 - [...] liberation of free fatty acids, and/or had anti-inflammat ory effect d/t food elimination, but may have [...] without diagnosis of hypertension (ICD-10 - R03.0) 04/17/2024 Candidal enteritis (ICD-10 - B37.82) 12/23/2024 [...] organs, systems and tissues (ICD-10 - R89.9) 04/17/2024 Abnormal level of hormones in specimens [...] alternatives ... patient presents to review symptoms. 05/14/2024 Other Consent obtained. Time spent preparing [...] liberation of free fatty acids, and/or had anti-inflammat ory effect d/t food elimination, but may have confered burden on pancreas and liver, gallbladder to upregulate production of lipase, elastase, bile. This may have contributed to RUQ pain. 12/23/2024 Other Consent obtained. Time spent preparing to see the patient: 5 min Appointment Start time: GreggtanyaDonta Brian 12/23/2024 11:33:41 AM EDT > End time: Donta Olivas Brian 12/23/2024 12:11:46 PM EDT > Post appointment [...] ANTHONY IFA SCREEN W/REFL TO TITER AND PATSHELBI RN, IFA 07/27/2021 HS CRP 07/27/2021 CARDIO [...] 01/30/2024 Next Appt Details Provider Name:[place]onta [place] [facility] [place]/07/2025 12:30:00 PM, [address] [facility], [address], [place], [address], Insurance Providers Payer Name Payer Address Payer Phone Subscriber Number Group Number Insured Name Patient Relationship to Insured Coverage Start Date Coverage End Date [facility] [address] [place], [place] [id number] Pacheco Bonner Self - patient is the insured Medical (General) History Surgical History Surgery Date(Month/Year) Tendon repair surgery 07/01/2020
[2025-03-01 09:00] LABS: Hematocrit 44.1 % (42.0-52.0); Hemoglobin 14.7 g/dl (14.0-18.0); Mean Corpuscular HGB Conc 33.3 g/dl (31.0-36.0); Mean Corpuscular Hemoglobin 27.0 pg (27.0-33.0); Mean Corpuscular Volume 80.9 fL (80.0-98.0); NRBC Abs Auto 0.000 X10*3/uL (0.0-0.012); NRBC Pct Auto 0.0 /100WBC (0.0-0.2); Platelet Count 241 X10*3/uL (160-400); Red Blood Count 5.45 X10*6/uL (4.60-5.80); White Blood Count 6.5 X10*3/uL (4.8-10.8)
[2025-03-01 09:10] LABS: Appearance Urine Clear; Glucose Urine UA Negative (Negative); PH 5.0 (5.0-9.0); Specific Gravity - Urine 1.025 (1.005-1.025); UMIC TRIGGER UA YES
[2025-03-01 09:50] LABS: Alanine Aminotransferase 54 U/L (0-40); Albumin Level 4.4 g/dL (3.5-5.0); Alkaline Phosphatase 78 U/L (39-117); Anion Gap 12 (12-20); Aspartate Amino Transferase 38 U/L (5-37); Blood Urea Nitrogen 13 mg/dL (9-16); Calcium 9.2 mg/dL (8.4-10.2); Carbon Dioxide 26 mmol/L (22-29); Chloride 107 mmol/L (96-108); Cholesterol 208 mg/dL (<200); Estimated Glomerular Filt Rate > 60; HDL Cholesterol 42 mg/dL (>40); Potassium 4.2 mmol/L (3.3-5.1); Sodium 141 mmol/L (135-145); Total Protein 7.2 g/dL (6.5-8.0); Triglycerides 104 mg/dL (<150)
[2025-03-01 10:07] LABS: Thyroid Stimulating Hormone 2.33 uIU/mL (0.32-4.0)
== END 2025-03-01 08:10 | disposition home or self-care (01) ==
LOC: HO.LAB 08:09
PROVIDERS: PCP Internal Medicine; Visit Provider Internal Medicine
DX: G43.909 Migraine, unspecified, not intractable, without status migrainosus (principal); Z13.6 Encounter for screening for cardiovascular disorders; Z13.29 Encounter for screening for other suspected endocrine disorder
CPT/HCPCS: 36415; 80048; 80061; 80076; 81001; 81003; 84443; 85027